=== PATIENT | male | born 1970 | race Caucasian/White ===

== ENCOUNTER 2018-04-21 19:55 | Inpatient (IN) | payer SELFPAY ==
[2018-04-21 19:55] VITALS: BP 106/72; PULSE 136; RESP 20; TEMP 37.1; O2SAT 95; BMI 30.5
[2018-04-21] MEDS: 0.9% Normal Saline 1,000 ML 1000 ML IV (20:31)
[2018-04-21] MEDS: Ondansetron 4 MG/2 ML Vial IV (20:32)
[2018-04-21] MEDS: Morphine 4 MG/ML Syringe IV ×2 (20:33→21:19)
[2018-04-21 20:35] LABS: Absolute Lymphocyte Count 1.14 X10^3/ul (0.83-4.51); Absolute Neutrophil Count 14.6 X10^3/uL (2.0-7.7); Basophil# 0.01 X10^3/uL; Basophil% 0.1 % (0-1); Hematocrit 46.9 % (40-54); Hemoglobin 16.4 g/dl (13.0-16.5); Lymphocyte # 1.14 X10^3/ul (4.0); Lymphocyte % 6.9 % (19-41); Mean Platelet Vol. 9.2 fl (6.2-12.0); Monocyte# 0.61 X10^3/uL; Monocyte% 3.7 % (0-10); Neutrophil # 14.64 X10^3/uL (2.7-7.7); Neutrophil % 89.2 % (47-70); Platelet Count 275 K/mm3 (150-450); RBC Distribution Width CV 13.1 % (11.6-14.6); RBC Distribution Width SD 38.1 fl (35.1-43.9); Red Blood Count 5.86 M/mm3 (4.6-6.2); White Blood Count 16.4 K/mm3 (4.4-11.0)
[2018-04-21 20:37] LABS: POSITIVE COUNT NO; POSITIVE DIFFERENTIAL NO; POSITIVE MORPHOLOGY NO
[2018-04-21 20:43] LABS: Squamous Epithelial Cells - UA 0 SEEN /hpf (0-5)
[2018-04-21 20:44] LABS: Color, Urine Yellow (Yellow); Glucose, Dipstick Normal (Normal); Ketone-Dipstick Negative (Negative); Leukocyte Esterase-Dipstick Negative /ul (Negative); Nitrite-Dipstick Negative (Negative); Occult Blood-Urine 25 /ul (Negative); Protein-Dipstick 30 mg/dl (Negative); Urine Bilirubin Dipstick Negative (Negative); Urine Clarity Clear (Clear); Urine Urobilinogen Normal (Normal)
[2018-04-21 20:48] LABS: Anion Gap 13 (5-15); BUN 12 mg/dL (7-18); Calcium,Total 8.9 mg/dL (8.5-10.1); Chloride 97 mmol/L (98-107); EST Glomerular Filtration Rate 69 mL/min (>60); Est Glom Filt Rate - Afr Amer 84 mL/min (>60); Estimated Creatinine Clearance 84.43 ml/min; Glucose 123 mg/dL (74-106); Potassium 4.1 mmol/L (3.5-5.1); Sodium Level 133 mmol/L (136-145)
--- NOTE | 2018-04-21 20:50 | CT_ITS ---
STUDY: CT ABDOMEN AND PELVIS WITHOUT CONTRAST REASON FOR EXAM: Male, 47 years old. Right lower quadrant pain RADIATION DOSAGE (If Supplied By Facility): CTDIvol = ( 14.41 ) mGy, DLP = ( 927.61 ) mGycm TECHNIQUE: Transaxial images were obtained from the dome of the diaphragm to the symphysis pubis without oral contrast, and without intravenous contrast. Sagittal and coronal images were reconstructed. Individualized dose optimization techniques were used for this CT. COMPARISON: None. FINDINGS: Minor atelectasis within the dependent portion of the right lung. The visualized portions of the heart are within normal limits. Nonspecific fatty infiltration of liver without mass or bile duct dilatation.. Normal gallbladder and extrahepatic biliary system. Normal spleen. Normal pancreas. Normal bilateral adrenal glands. Normal right kidney. Normal left kidney. Normal visualized stomach. Normal small intestine. Diverticular disease of the sigmoid colon without evidence for acute diverticulitis there are phleboliths noted within the appendix which is thick-walled and there is extensive stranding within the periappendiceal fat consistent with acute appendicitis. There is a trace of fluid within the paracolic gutter There is no periappendiceal abscess. Minor atherosclerotic changes of the aorta without evidence for aneurysm Normal inferior vena cava. Normal retroperitoneum. Incompletely distended diffusely thick-walled bladder. Normal abdominal wall. Lumbar spine demonstrates mild spondylosis. CT/Abdomen/Pel W ORAL Cont Only IMPRESSION: Findings consistent with acute appendicitis. No periappendiceal abscess. N.B. : The above information has been verbally conveyed by Timo Ogden MD to , Covering Physician, on 04/21/2018 21:21:25 (ET). Electronically Signed: Timo Ogden MD at 21:18 EDT , Service support , N.B. : The above information has been verbally conveyed by Timo Ogden MD to , Covering Physician, on 04/21/2018 21:21:25 (ET).
[2018-04-21 20:54] LABS: Bacteria RARE /hpf (None Seen); Mucous, Urine 1+ /hpf (<or=2+); Red Blood Cells-Urine 0-5 SEEN /hpf (0-5); White Blood Cells 0-5 SEEN /hpf (0-5)
--- NOTE | 2018-04-21 21:09 | ED.VISSUMM ---
- ER Visit Summary Date of Service: 04/21/18 Chief Complaint: Abdominal pain History of Present Illness: The patient is a 47 M with no primary care physician. He reports he has abdominal pain that began yesterday. Usually the pain is in the epigastric region and the right lower quadrant. Gradually the pain has localized to the right lower quadrant and is gotten worse. It is a dull pain is 7-10 at worst and 510 currently. Is worsened by movement or coughing. Is relieved by nothing. He denies any nausea or vomiting. However, he reports he has not eaten in the past 2 days. No diarrhea. His last problem was today. No melena or hematochezia. He has occasional dysuria. No hematuria. He has had chills without a fever. Physical Examination: Vitals: Stable. Afebrile. General: Well-nourished and well-developed. Head: Normocephalic atraumatic. Neck: Supple, no lymphadenopathy. No JVD. Nontender. Cardiovascular: Regular rate and rhythm. No murmurs. Respiratory: No respiratory distress. Clear to auscultation bilaterally. Abdominal: Soft, moderate right lower quadrant tenderness palpation, nondistended, normal bowel sounds. No guarding, rebound, or peritoneal signs. Back: Nontender. Extremities: Nontender, no edema. Skin: Normal color, no rash. Neurologic: Alert and oriented ?3. Cranial nerves II through XII are intact. Normal strength and sensation. Psych: Normal affect. Test Results: CBC shows white count of 16.49 7 neutrophils and 7 lymphocytes. Chem-7 is more for sodium 133, chloride 97, glucose 123. UA is negative. CT the abdomen pelvis with p.o. contrast only shows appendicitis. Emergency Department Course and Treatment: Patient was treated with morphine, Zofran, and Zosyn IV. He is resting comfortably. Treatment Plan: Patient was discussed with Dr. Brush who will be in to see him. Disposition: Admitted in stable condition. Impression: 1. Appendicitis. This note was generated with [employer] dictation software. It may contain incorrect words, spelling, and punctuation that were not noted in review of the chart prior to signing ED Disposition - Plan for ED Patient: Chief Complaint: Abd Pain Referrals: Care Physician,No Primary [Primary Care Provider] -
[2018-04-21] MEDS: 0.9% Normal Saline 1,000 ML 999 ML IV (21:19)
--- NOTE | 2018-04-21 21:42 | HP.PCM_ITS ---
History of Present Illness Date of Admission: 04/21/18 The patient is a 47 year old M with a 24hour history of vague abdominal pain now localized to the RLQ. WBC count is 16K, CT scan demonstrated appendicitis. Past Medical History Allergies No Known Allergies Allergy (Verified 04/21/18 19:57) Home Medications: Ambulatory Orders Medication Instructions Recorded No Known/Unobtainable [No Known 11/21/13 Home Medications] Surgical History: no surgical history Smoking Status: [facility] Alcohol: Rare Drugs: Marijuana Review of Systems Constitutional: Reports: Anorexia. Denies: Chills, Fever, Weight Change HEENT: Denies: Head Aches, Sinus Congestion, Sinus Drainage Cardiovascular: Denies: Chest Pain, Palpitations Respiratory: Denies: Cough, Shortness of breath at rest, Sputum production Gastrointestinal: Reports: Abdominal Pain. Denies: Nausea, Vomiting Genitourinary: Denies: Dysuria Musculoskeletal: Denies: Joint Pain, Joint Tenderness Skin: Denies: Rash, Wounds Neurological: Denies: Numbness, Tingling, Focal weakness Psychiatric: Denies: Anxiety, Depression, Homicidal Ideations, Suicidal Ideations Hematologic/ Lymphatic: Denies: Easy Bruising, Easy Bleeding VTE Information - Inpt Only VTE Present on Admission: No VTE Mechan Device Prophylaxis: SCD's - Physical Exam General: Alert, Oriented x3, Cooperative HEENT: Atraumatic, PERRLA, EOMI, Normocephalic Neck: Supple, No JVD, Negative Carotid Bruits Lungs: Clear to auscultation, Normal air movement Cardiovascular: Regular rate, No murmurs Abdomen: Bowel Sounds Present, Soft, Tender - RLQ Extremities: No edema, Capillary Refill Less than 3 Seconds Skin: No rashes, No breakdown Musculoskeletal: No Tenderness to Palpation of Joints or Extremities Neurological: Cranial nerves II-XII grossly intact Psych/Mental Status: Normal Affect, Appropriate Vital Signs Temp Pulse Resp BP Pulse Ox 98.8 F 136 H 20 H 106/72 95 04/21/18 19:55 04/21/18 19:55 04/21/18 19:55 04/21/18 19:55 04/21/18 19:55 Oxygen Delivery Method Room Air Weight: 102.058 kg Body Mass Index (BMI) 30.5 Laboratory Tests Past 24 Hrs 0704/21/18 04/21/18 20:15 20:15 20:35 WBC 16.4 H RBC 5.86 Hgb 16.4 Hct 46.9 MCV 80.0 MCH 28.0 MCHC 35.0 RDW 13.1 RDW Differential 38.1 Plt Count 275 MPV 9.2 Immature Gran % (Auto) 0.100 Neut % (Auto) 89.2 H Lymph % (Auto) 6.9 L [place] % (Auto) 3.7 Eos % (Auto) 0.0 Baso % (Auto) 0.1 Absolute Neuts (auto) 14.6 H Absolute Lymphs (auto) 1.14 Total Counted Not Reportable Sodium 133 L Potassium 4.1 Chloride 97 L Carbon Dioxide 23.0 Anion Gap 13 BUN 12 Creatinine 1.20 Estim Creat Clear Calc 84.43 Est GFR (MDRD) Af Amer 84 Est GFR (MDRD) Non-Af 69 BUN/Creatinine Ratio 10.0 Glucose 123 H Calcium 8.9 Urine Color Yellow Urine Clarity Clear Urine pH 6.0 Ur Specific [place] 1.020 Urine Protein 30 H Urine Glucose (UA) Normal Urine Ketones Negative Urine Occult Blood 25 H Urine Nitrite Negative Urine Bilirubin Negative Urine Urobilinogen Normal Ur Leukocyte Esterase Negative Urine RBC 0-5 SEEN Urine WBC 0-5 SEEN Ur Squamous Epith Cells 0 SEEN Urine Bacteria RARE Urine Mucus 1+ Chlam trachomat DNA PCR N.gonorrhoeae DNA (PCR) 04/21/18 20:43 WBC RBC Hgb Hct MCV MCH MCHC RDW RDW Differential Plt Count MPV Immature Gran % (Auto) Neut % (Auto) Lymph % (Auto) [place] % (Auto) Eos % (Auto) Baso % (Auto) Absolute Neuts (auto) Absolute Lymphs (auto) Total Counted Sodium Potassium Chloride Carbon Dioxide Anion Gap BUN Creatinine Estim Creat Clear Calc Est GFR (MDRD) Af Amer Est GFR (MDRD) Non-Af BUN/Creatinine Ratio Glucose Calcium Urine Color Urine Clarity Urine pH Ur Specific [place] Urine Protein Urine Glucose (UA) Urine Ketones Urine Occult Blood Urine Nitrite Urine Bilirubin Urine Urobilinogen Ur Leukocyte Esterase Urine RBC Urine WBC Ur Squamous Epith Cells Urine Bacteria Urine Mucus Chlam trachomat DNA PCR Pending N.gonorrhoeae DNA (PCR) Pending Assessment/Plan appendicitis. I plan to perform a laparoscopic appendectomy. The patient understands the risks, benefits, possible complications and alternatives and consents to the procedure. He was given Zosyn.
[2018-04-21 21:46] VITALS: BP 114/70; PULSE 107; RESP 16; O2SAT 97
--- NOTE | 2018-04-21 21:57 | NURSING ---
TELEPHONE REPORT GIVEN TO [facility] IN OR. DENIES QUESTIONS. STATES THEY ARE READY FOR THE PT. ERIS TEIXEIRA TAKING PT DOWN TO OR.
--- NOTE | 2018-04-21 22:00 | APP_PTH ---
PATIENT: SOL ESQUIVEL LOC: MS2 U#:[id number] AGE/SX: 47/M ROOM: [facility] RE04/21/[address]: Dr. Nam Vergara MD : 1970 BED: 1 DIS: 04/24/2018 SPEC #: [id number] RECD: 04/22/18 08:17 STATUS: BHAVIN SILVERIO #: [id number] BETHANY: 04/21/18 22:[address]: Nam Vergara DEPT: SURGICAL PATHOLOGY RECD BY: Han Rahman ENTERED: 04/22/18 10:23 SP TYPE: APPENDIX OT DR: No Primary Care Phys Tissues: Appendix, NOS Procedures: Surgery Specimen Level III HEADER OPERATION: Laparoscopic, appendectomy PRE-OP DIAGNOSIS: Acute appendicitis TISSUE SUBMITTED: Appendix MICROSCOPIC DIAGNOSIS Appendix: Acute purulent appendicitis with focal area of rupture and periappendicitis. FUNMILAYO:jyothi 04/23/18 MICROSCOPIC DESCRIPTION Slides are reviewed. GROSS DESCRIPTION Received is one container labeled with the patient's name and designated appendix. The specimen consists of an appendix measuring 9 cm in length and up to 1.2 cm in diameter. A focal area of rupture is noted in the middle portion of the appendix 4 cm away from the tip. The serosal surface is covered with jovel, purulent exudate. The attached periappendiceal adipose tissue measures up to 2.5 cm in width. The mucosa reveal congested and hemorrhagic cut surfaces. The lumen contains fecal material. No fecalith is identified. Director Of Analytics sections are submitted in two cassettes. / SJ:rg 04/22/18 TC:2 CPT: 53576
[2018-04-21] MEDS: Bupivacaine Mpf 0.5% 30 ML VIAL (23:00)
--- NOTE | 2018-04-21 23:07 | OP.PCM_ITS ---
Report of Operation Date of Procedure: 04/21/18 Pre-Operative Diagnosis: acute appendicitis Post-Operative Diagnosis: perforated appendicitis Surgery/Procedure Performed:: laparoscopic appendectomy Description of Surgical Findings:: as above human resources benefits assistant: None Type of Anesthesia:: General Anesthesiologist: Alec Mitchell ASA2E Specimen's removed: appendix Estimated Blood Loss (mL): minimal Fluids Replaced: 1100 Description of Procedure: The patient was brought to the operating suite. Sign in was performed verifying patient, site, procedure, position, and DVT prophylaxis with SCDs. Patient received 4.5 g Zosyn for presumed appendicitis. Following induction of general anesthetic. The patient?s abdomen was prepped and draped in the usual fashion. Timeout was performed verifying patient, site , position. Local anesthetic was injected below the umbilicus. Incision made and dissection carried down to the umbilical root fascia. 2 stay sutures were placed. Incision made in the fascia, the peritoneum entered under direct visualization. A 10 mm Blood trocar was inserted and secured with the stay sutures. Pneumoperitoneum to 15 mmHg was insufflated. 2 5mm ports were placed in the standard position. Visual inspection revealed a perforated appendicitis with fecal contamination. A window was made between the base the mesoappendix and the base of the appendix transected with the intestinal load Endo CAMERON stapler at the base of the cecum. The mesoappendix was transected with a harmonic scalpel. The appendix was placed in an Endobag and removed through the umbilical port site. An 0 PDS [id number] suture was placed around the umbilical port site defect. Pneumoperitoneum was reestablished. The appendiceal area was checked for hemostasis. 5mm ports were removed under direct visualization with no signs of bleeding. Pneumoperitoneum was released. The Blood trocar was removed. The umbilical fascial suture was secured area did skin was closed with interrupted 4-0 Monocryl subcuticular sutures. Steri-Strips and bandages were applied. The patient was brought to recovery room in stable condition.
[2018-04-21 23:13] VITALS: BP 106/72; BP 135/96; PULSE 110; RESP 20; TEMP 37.5; O2SAT 88
[2018-04-21 23:15] VITALS: BP 106/72; BP 153/95; PULSE 108; RESP 20; O2SAT 92
[2018-04-21 23:30] VITALS: BP 106/72; BP 134/80; PULSE 107; RESP 20; O2SAT 92
[2018-04-21 23:46] VITALS: BP 106/72; BP 126/74; PULSE 106; RESP 20; TEMP 37.9; O2SAT 95
[2018-04-22] VITALS (8 sets, daily range): BP systolic 119–138; BP diastolic 60–78; PULSE 87–112; RESP 18–20; TEMP 37.2–38.2; O2SAT 95–97; BMI 30.5
[2018-04-22 00:15] LABS: Chlamydia Trachomatis by PCR Negative (Negative); Neisserai gonorrhoeae by PCR Negative (Negative); Probe Check PASS; Sample Adequacy Control PASS; Specimen Processing Control PASS
[2018-04-22] MEDS: Morphine 4 MG/ML Syringe IV ×5 (02:12→20:20)
[2018-04-22] MEDS: Lactated Ringers 1,000 ML 100 ML IV ×3 (04:31→23:56)
[2018-04-22] MEDS: 0.9% NaCl IVPB Med Flush (250 mL) 15 ML IV (05:18)
[2018-04-22] MEDS: Piperacil/Tazobactam 3.375 GM/50 ML ML IV ×3 (05:18→22:10)
[2018-04-22 06:16] LABS: Absolute Lymphocyte Count 0.99 X10^3/ul (0.83-4.51); Absolute Neutrophil Count 11.4 X10^3/uL (2.0-7.7); Basophil# 0.01 X10^3/uL; Basophil% 0.1 % (0-1); Eosinophil# 0.01 X10^3/uL; Eosinophils% 0.1 % (0-5); Hematocrit 42.1 % (40-54); Hemoglobin 14.5 g/dl (13.0-16.5); Lymphocyte # 0.99 X10^3/ul (4.0); Lymphocyte % 7.7 % (19-41); Mean Corp Hgb Conc 34.4 g/gl (32-36); Mean Corpuscular Hgb 27.6 pg (27.0-32.0); Mean Platelet Vol. 9.2 fl (6.2-12.0); Monocyte# 0.39 X10^3/uL; Neutrophil # 11.44 X10^3/uL (2.7-7.7); Neutrophil % 88.9 % (47-70); Platelet Count 300 K/mm3 (150-450); RBC Distribution Width CV 13.4 % (11.6-14.6); RBC Distribution Width SD 38.6 fl (35.1-43.9); Red Blood Count 5.26 M/mm3 (4.6-6.2); White Blood Count 12.9 K/mm3 (4.4-11.0)
[2018-04-22 06:19] LABS: ALB/GLOB Ratio 0.7 RATIO (0.9-2.4); AST(SGOT) 25 U/L (15-37); Alanine Aminotransfer ALT/SGPT 57 U/L (16-61); Alkaline Phosphatase 55 U/L (45-117); Anion Gap 11 (5-15); BUN 12 mg/dL (7-18); BUN/Creat Ratio 9.3 RATIO (10-20); Calcium,Total 7.9 mg/dL (8.5-10.1); Chloride 101 mmol/L (98-107); Creatinine, Serum 1.29 mg/dL (0.70-1.30); EST Glomerular Filtration Rate 64 mL/min (>60); Est Glom Filt Rate - Afr Amer 77 mL/min (>60); Estimated Creatinine Clearance 78.54 ml/min; Globulin 4.2 g/dL (2.2-4.2); Glucose 127 mg/dL (74-106); Potassium 4.2 mmol/L (3.5-5.1); Protein, Total 7.2 g/dL (6.4-8.2); Sodium Level 137 mmol/L (136-145)
[2018-04-22 06:25] LABS: POSITIVE COUNT NO; POSITIVE DIFFERENTIAL NO; POSITIVE MORPHOLOGY NO
[2018-04-22] MEDS: HYDROcodone Bitartrate/Apap 5/325 Tablet PO ×3 (08:27→22:57)
[2018-04-22] MEDS: 0.9% NaCl Peripheral Flush Adult/Peds IV ×2 (08:28→20:20)
--- NOTE | 2018-04-22 14:45 | CASEMGMT ---
Social Work Assessment Referral Date: 04/22/2018 Date of Assessment: 04/22/2018 Reason for consult: Pt is listed as self-pay Informant: IRON Personal Status SW met with pt. SW introduced self and role at [facility]. Pt is alert and orientated x4. Pt has guest present and gave this worker permission to speak to him in front of his quest. Pt states that he lives with his parents in 1 story ranch home. Pt states that he lives in the basement and there are about twelve steps to take to get up and down from the basement. Pt states that he was previously independent with ADLs and that he currently works. Pt confirms that he doesn't have insurance. Pt states that patient financial services saw him today and provided paperwork including HCAP application. Pt states that he hasn't applied for Medicaid but is receptive to receiving application. SW provided pt with Medicaid application and provided pt with prescription assistance programs. Pt states that his plan is to return home at discharge. Pt denied additional needs or concerns at this time. Substance Abuse Hx: Pt denied Mental Health Hx: Pt denied Plan: Pt to return home at discharge. Pt was provided HCAP application, Medicaid Application and prescription assistance resources. Sofi Miranda LINING MARKER, COMMERCIAL ANALYST
--- NOTE | 2018-04-22 15:57 | CASEMGMT ---
RN CM NOTE: Intro role of CM. Pt states has no PCP. Given list of PCP'S in [place] area. Pt denies further needs at this time. Magui LOGANN RN CM
--- NOTE | 2018-04-22 18:26 | PN.SURG_ITS ---
Subjective: some incisional discomfort - Physical Exam General: Alert, Oriented x3, Cooperative Lungs: Clear to auscultation, Normal air movement Cardiovascular: Regular rate, No murmurs Abdomen: Bowel Sounds Present, Soft, Tender - at incisions, nontender in right lower quadrant Vital Signs Temp Pulse Resp BP Pulse Ox 99.0 F 104 H 18 119/75 97 04/22/18 14:28 04/22/18 14:28 04/22/18 18:00 04/22/18 14:28 04/22/18 14:28 Oxygen Flow Rate (L/min) 2 Oxygen Delivery Method Room Air Weight: 102.058 kg Body Mass Index (BMI) 30.5 Intake and Output for Last 24 Hours 04/20/18 04/21/18 04/22/18 23:59 23:59 23:59 Intake Total 1400 / 1400 2986 / 2986 Output Total 1250 / 1250 Balance 1400 / 1400 1736 / 1736 Laboratory Tests Past 24 Hrs 04/22/18 04/22/18 05:26 05:26 WBC 12.9 H RBC 5.26 Hgb 14.5 Hct 42.1 MCV 80.0 MCH 27.6 MCHC 34.4 RDW 13.4 RDW Differential 38.6 Plt Count 300 MPV 9.2 Immature Gran % (Auto) 0.200 Neut % (Auto) 88.9 H Lymph % (Auto) 7.7 L [place] % (Auto) 3.0 Eos % (Auto) 0.1 Baso % (Auto) 0.1 Absolute Neuts (auto) 11.4 H Absolute Lymphs (auto) 0.99 Total Counted Not Reportable Sodium 137 Potassium 4.2 Chloride 101 Carbon Dioxide 25.0 Anion Gap 11 BUN 12 Creatinine 1.29 Estim Creat Clear Calc 78.54 Est GFR (MDRD) Af Amer 77 Est GFR (MDRD) Non-Af 64 BUN/Creatinine Ratio 9.3 L Glucose 127 H Calcium 7.9 L Total Bilirubin 1.90 H AST 25 ALT 57 Alkaline Phosphatase 55 Total Protein 7.2 Albumin 3.0 L Globulin 4.2 Albumin/Globulin Ratio 0.7 L Medical Necessity - Tobacco Use Smoking Status: Current every day smoker Assessment/Plan postoperative day #1 status post laparoscopic appendectomy for perforated appendicitis.. The patient is being maintained on Zosyn. encourage ambulation, incentive spirometry,. We'll continue SCDs. Will advance diet as tolerated. Check laboratory studies in the morning
[2018-04-23 02:58] VITALS: BP 120/70; PULSE 88; RESP 18; TEMP 37.1; O2SAT 98
[2018-04-23] MEDS: HYDROcodone Bitartrate/Apap 5/325 Tablet PO ×4 (05:40→23:38)
[2018-04-23] MEDS: Piperacil/Tazobactam 3.375 GM/50 ML ML IV ×3 (05:41→21:08)
[2018-04-23 07:38] LABS: Absolute Lymphocyte Count 0.64 X10^3/ul (0.83-4.51); Absolute Neutrophil Count 8.4 X10^3/uL (2.0-7.7); Basophil# 0.01 X10^3/uL; Basophil% 0.1 % (0-1); Eosinophil# 0.01 X10^3/uL; Eosinophils% 0.1 % (0-5); Hematocrit 38.9 % (40-54); Hemoglobin 13.3 g/dl (13.0-16.5); Lymphocyte # 0.64 X10^3/ul (4.0); Lymphocyte % 6.8 % (19-41); Mean Corp Hgb Conc 34.2 g/gl (32-36); Mean Corpuscular Hgb 27.8 pg (27.0-32.0); Mean Corpuscular Volume 81.2 fL (80-94); Mean Platelet Vol. 9.4 fl (6.2-12.0); Monocyte# 0.35 X10^3/uL; Monocyte% 3.7 % (0-10); Neutrophil # 8.39 X10^3/uL (2.7-7.7); Neutrophil % 89.2 % (47-70); Platelet Count 267 K/mm3 (150-450); RBC Distribution Width CV 13.5 % (11.6-14.6); RBC Distribution Width SD 39.2 fl (35.1-43.9); Red Blood Count 4.79 M/mm3 (4.6-6.2); White Blood Count 9.4 K/mm3 (4.4-11.0)
[2018-04-23 07:56] LABS: POSITIVE COUNT NO; POSITIVE DIFFERENTIAL NO; POSITIVE MORPHOLOGY NO
[2018-04-23 07:58] LABS: Anion Gap 9 (5-15); BUN 12 mg/dL (7-18); BUN/Creat Ratio 9.9 RATIO (10-20); Calcium,Total 8.2 mg/dL (8.5-10.1); Chloride 101 mmol/L (98-107); Creatinine, Serum 1.21 mg/dL (0.70-1.30); EST Glomerular Filtration Rate 68 mL/min (>60); Est Glom Filt Rate - Afr Amer 83 mL/min (>60); Estimated Creatinine Clearance 83.73 ml/min; Glucose 128 mg/dL (74-106); Potassium 3.7 mmol/L (3.5-5.1); Sodium Level 134 mmol/L (136-145)
[2018-04-23 08:57] VITALS: BP 116/70; PULSE 74; RESP 18; TEMP 37.2; O2SAT 99
[2018-04-23 09:00] VITALS: RESP 18
[2018-04-23] MEDS: Lactated Ringers 1,000 ML 100 ML IV ×2 (10:00→20:42)
[2018-04-23 15:11] VITALS: BP 128/66; PULSE 78; RESP 18; TEMP 36.8; O2SAT 100
--- NOTE | 2018-04-23 18:34 | PN.SURG_ITS ---
Subjective: still pain, no flatus - Physical Exam General: Alert, Oriented x3, Cooperative Lungs: Clear to auscultation, Normal air movement Cardiovascular: Regular rate, No murmurs Abdomen: Soft, Non Tender, Hypoactive Bowel Sounds, Tender - along the incisions and right side Vital Signs Temp Pulse Resp BP Pulse Ox 98.3 F 78 18 128/66 H 100 04/23/18 15:11 04/23/18 15:11 04/23/18 15:11 04/23/18 15:11 04/23/18 15:11 Oxygen Flow Rate (L/min) 2 Oxygen Delivery Method Room Air Weight: 102.058 kg Body Mass Index (BMI) 30.5 Intake and Output for Last 24 Hours 04/21/18 04/22/18 04/23/18 23:59 23:59 23:59 Intake Total 1400 / 1400 3898 / 3898 3273.5 / 3273.5 Output Total 1250 / 1250 1900 / 1900 Balance 1400 / 1400 2648 / 2648 1373.5 / 1373.5 Laboratory Tests Past 24 Hrs 04/23/18 04/23/18 06:40 06:40 WBC 9.4 RBC 4.79 Hgb 13.3 Hct 38.9 L MCV 81.2 MCH 27.8 MCHC 34.2 RDW 13.5 RDW Differential 39.2 Plt Count 267 MPV 9.4 Immature Gran % (Auto) 0.100 Neut % (Auto) 89.2 H Lymph % (Auto) 6.8 L [place] % (Auto) 3.7 Eos % (Auto) 0.1 Baso % (Auto) 0.1 Absolute Neuts (auto) 8.4 H Absolute Lymphs (auto) 0.64 L Total Counted Not Reportable Sodium 134 L Potassium 3.7 Chloride 101 Carbon Dioxide 24.0 Anion Gap 9 BUN 12 Creatinine 1.21 Estim Creat Clear Calc 83.73 Est GFR (MDRD) Af Amer 83 Est GFR (MDRD) Non-Af 68 BUN/Creatinine Ratio 9.9 L Glucose 128 H Calcium 8.2 L Medical Necessity - Tobacco Use Smoking Status: Current every day smoker Assessment/Plan postoperative day #2 status post laparoscopic appendectomy for perforated appendicitis.. The patient is being maintained on Zosyn. encourage ambulation, incentive spirometry,. We'll continue SCDs. Will advance diet as tolerated.
[2018-04-23] MEDS: Calcium Carbonate 500 MG Tablet 1000 MG PO (21:08)
[2018-04-23 21:10] VITALS: BP 139/70; PULSE 90; RESP 16; TEMP 36.9; O2SAT 100
[2018-04-24 03:10] VITALS: BP 122/64; PULSE 89; RESP 15; TEMP 36.8; O2SAT 100
[2018-04-24] MEDS: HYDROcodone Bitartrate/Apap 5/325 Tablet PO ×2 (05:38→12:26)
[2018-04-24] MEDS: Piperacil/Tazobactam 3.375 GM/50 ML ML IV (05:53)
--- NOTE | 2018-04-24 06:23 | DCINST_ITS ---
Discharge Diet: Light diet - advance as tolerated Discharge Activity: May Not Drive - for 3-5 days or while taking narcotic pain meds. May shower in (days): 1 Suture Line Care: Avoid Pulling/Pushing, Avoid Pinching/Bending Additional Dressing/Incision Instructions:: Keep dressing clean and dry. Change or remove dressing in 2 days. Leave steri strips for 1 week. May protect with a gauze bandaid. Medications to take at Discharge Calcium Carbonate [Tums] 1,000 mg PO Q4H PRN PRN tablet 04/24/18 Hydrocodone Bitart/Apap 5-325 [[place] 5/325] 1 - 2 tab PO Q6H PRN PRN 7 Days #14 tab 04/24/18 Allergies/Adverse Reactions: Allergies No Known Allergies Allergy (Verified 04/21/18 19:57) The following prescriptions were given: Hydrocodone Bitart/Apap 5-325 [[place] 5/325] 1 - 2 tab PO Q6H PRN PRN 7 Days #14 tab PRN Reason: Mild-Moderate (pain scale 1-5) Primary Care Physician: Care Physician,No Primary [Primary Care Provider] - Test Results: Test results from this visit will be discussed in further detail at your follow- up appointment, if applicable. Please Follow Up With: Nam Vergara MD - [phone] When: Call to make a follow up appointment in 1 week.
[2018-04-24] MEDS: Lactated Ringers 1,000 ML 100 ML IV (06:40)
[2018-04-24 07:38] VITALS: O2SAT 95
[2018-04-24 08:35] VITALS: BP 132/78; PULSE 81; RESP 16; TEMP 37.1; O2SAT 96
--- NOTE | 2018-04-24 18:57 | PCM.PN.SRG ---
Subjective: passing flatus, feeling better - Physical Exam General: Alert, Oriented x3 Lungs: Clear to auscultation, Normal air movement Cardiovascular: Regular rate, Regular Rhythm Abdomen: Bowel Sounds Present, Soft, Non Tender Vital Signs Temp Pulse Resp BP Pulse Ox 98.8 F 81 16 132/78 H 96 04/24/18 08:35 04/24/18 08:35 04/24/18 08:35 04/24/18 08:35 04/24/18 08:35 Oxygen Flow Rate (L/min) 2 Oxygen Delivery Method Room Air Weight: 102.058 kg Body Mass Index (BMI) 30.5 Intake and Output for Last 24 Hours 04/22/18 04/23/18 04/24/18 23:59 23:59 23:59 Intake Total 3898 / 3898 4546.5 / 4546.5 832.2 / 832.2 Output Total 1250 / 1250 2750 / 2750 Balance 2648 / 2648 1796.5 / 1796.5 832.2 / 832.2 Medical Necessity - Tobacco Use Smoking Status: Current every day smoker Assessment/Plan postoperative day #3 status post laparoscopic appendectomy for perforated appendicitis.. The patient feeling better today with improved pain and now passing flatus. Will advance diet as tolerated. we'll plan to discharge later today.
--- NOTE | 2018-04-24 18:59 | PCM.DC.SUM ---
Discharge Date and Diagnosis Date of Admission: 04/21/18 Date of Discharge: 04/24/18 - Primary Discharge Diagnosis appendicitis Hospital Course and Treatment Operations: appendectomy Summary of Care Provided: The patient is a 47 year old M presented with a one-day history of abdominal localizing right lower quadrant pain. The patient is CT scan consistent with appendicitis. He was brought to the operating suite and was found to have perforated appendicitis. The patient had initial significant pain and given the degree of inflammation, alert to maintain the patient on IV antibiotics. He had improvement of his pain, normalization of his white blood cell count and was then maintained afebrile for > 24 hours. The patient was discharged home with plans to follow-up in my office. Discharge Diet: Light diet - advance as tolerated Discharge Activity: May Not Drive - for 3-5 days or while taking narcotic pain meds. May shower in (days): 1 Suture Line Care: Avoid Pulling/Pushing, Avoid Pinching/Bending Additional Dressing/Incision Instructions:: Keep dressing clean and dry. Change or remove dressing in 2 days. Leave steri strips for 1 week. May protect with a gauze bandaid. Home Medications: Medications to take at Discharge Calcium Carbonate [Tums] 1,000 mg PO Q4H PRN PRN tablet 04/24/18 Hydrocodone Bitart/Apap 5-325 [[place] 5/325] 1 - 2 tab PO Q6H PRN PRN 7 Days #14 tab 04/24/18 Following Prescrptions Were Given to Patient: Hydrocodone Bitart/Apap 5-325 [[place] 5/325] 1 - 2 tab PO Q6H PRN PRN 7 Days #14 tab PRN Reason: Mild-Moderate (pain scale 1-5) Primary Care Physician: Care Physician,No Primary [Primary Care Provider] - Please Follow Up With: Nam Vergara MD - [phone] When: Call to make a follow up appointment in 1 week. Medical Necessity - Tobacco Use Smoking Status: Current every day smoker Meaningful Use Info Meaningful Use Diagnoses (Choose all that apply): None applicable
== END 2018-04-24 13:06 | disposition home or self-care (01) | DRG 340 ==
LOC: ED 20:41 → SDC 21:19 → AC 21:20 → MS2 22:40 → SDC 22:41 → MS2 04-22 08:42
PROVIDERS: Admitting Provider Surgery; Emergency Provider Emergency Medicine; Visit Provider Surgery
PROC: 0DTJ4ZZ Resection of Appendix, Percutaneous Endoscopic Approach (ICD-10-PCS; CPT 44970; principal; 2018-04-21 22:00)
DX: K35.2 Acute appendicitis with generalized peritonitis (principal)
CPT/HCPCS: 36415; 74176; 80048; 80053; 81001; 85025; 87491; 87591; 88304; 99284; 99406; J7030; J7050; J7120; A4216; J2405

== ENCOUNTER 2018-05-08 15:05 | Inpatient (IN) | payer SELFPAY ==
[2018-05-08 15:23] VITALS: BMI 29.0
[2018-05-08 15:24] VITALS: BP 130/71; PULSE 100; RESP 18; TEMP 39.2; O2SAT 99
[2018-05-08] MEDS: Lactated Ringers 1,000 ML 60 ML IV (16:00)
[2018-05-08] MEDS: Ibuprofen 400 MG Tablet PO (16:56)
[2018-05-08 17:17] LABS: Absolute Lymphocyte Count 0.97 X10^3/ul (0.83-4.51); Absolute Neutrophil Count 8.7 X10^3/uL (2.0-7.7); Basophil# 0.01 X10^3/uL; Basophil% 0.1 % (0-1); Hematocrit 36.5 % (40-54); Hemoglobin 11.9 g/dl (13.0-16.5); Lymphocyte # 0.97 X10^3/ul (4.0); Lymphocyte % 9.4 % (19-41); Mean Corp Hgb Conc 32.6 g/gl (32-36); Mean Corpuscular Hgb 26.3 pg (27.0-32.0); Mean Corpuscular Volume 80.6 fL (80-94); Mean Platelet Vol. 8.7 fl (6.2-12.0); Monocyte# 0.66 X10^3/uL; Monocyte% 6.4 % (0-10); Neutrophil # 8.66 X10^3/uL (2.7-7.7); Platelet Count 541 K/mm3 (150-450); RBC Distribution Width CV 13.3 % (11.6-14.6); RBC Distribution Width SD 39.9 fl (35.1-43.9); Red Blood Count 4.53 M/mm3 (4.6-6.2); White Blood Count 10.3 K/mm3 (4.4-11.0)
[2018-05-08 17:18] LABS: POSITIVE COUNT NO; POSITIVE DIFFERENTIAL NO; POSITIVE MORPHOLOGY NO
[2018-05-08 17:31] LABS: Anion Gap 10 (5-15); BUN 18 mg/dL (7-18); BUN/Creat Ratio 15.9 RATIO (10-20); Calcium,Total 8.9 mg/dL (8.5-10.1); Chloride 97 mmol/L (98-107); Creatinine, Serum 1.13 mg/dL (0.70-1.30); EST Glomerular Filtration Rate 74 mL/min (>60); Est Glom Filt Rate - Afr Amer 90 mL/min (>60); Estimated Creatinine Clearance 89.66 ml/min; Glucose 104 mg/dL (74-106); Sodium Level 131 mmol/L (136-145)
[2018-05-08 17:46] LABS: International Normalized Ratio 1.2; Prothrombin Time (Protime)PT. 14.7 SECONDS (11.7-14.9)
--- NOTE | 2018-05-08 17:46 | HP.PCM_ITS ---
History and Physical Date of Admission: 05/08/18 HISTORY AND PHYSICAL ? Parth Moreno 1970 ? ? REFERRING PHYSICIAN: ~~Self ? CHIEF COMPLAINT: ~~Post Op (post op Appy) ? HPI: The patient is a 47 year old male with a complaint of fever and abdominal discomfort. ~Status post appendectomy. ? Parth is a patient I am following for acute appendicitis. ~I performed a laparoscopic appendectomy on April 21, 2018. ~The patient's appendix demonstrated acute appendicitis with perforation. ~The patient did well post operatively and was discharged to home on post operative day 2. ? The patient currently notes no complaints. ~his appetite has been good. ~he denies fever, chills or abdominal pain. ~he does note some mild incisional discomfort. ? He was doing well but now notes fever to 101.5 and right-sided abdominal discomfort. ~He has had a decrease in the good appetite. ~He is moving his bowels. ? Given his above symptoms. ~We obtained an urgent CT scan and laboratory studies. ~His white blood cell count was 11.5. ~CT scan was obtained, however, which does show a abscess approximately 5 cm of the base of the appendix consistent with a post appendectomy abscess. ? I spoke with Dr. Johnson who felt it was likely drainable. ? ? ? PAST MEDICAL HISTORY No past medical history on file. ? ? PAST SURGICAL HISTORY No past surgical history on file. Laparoscopic appendectomy-April 21, 2018-appendix was perforated the time of surgery ? CURRENT MEDICATIONS ? Current Outpatient Prescriptions: iv contrast (will be provided with radiology test) CT ABD/PEL -Inject, intravenously, once for 1 dose.No IV access, insert saline lock prior to the beginning of sedation, infusion, injection of imaging exam. Discontinue saline lock post exam. If Pt. has a central line or IVAD, may access for administration according to line specific nursing protocol. Once exam is complete flush line and de-access according to line specific nursing protocol in the CT contrast administration guidelines link. enteric contrast (will be provided with radiology test) For CT ABD/PEL W IVCON Routine order Administer, As Directed One Time Only, via Oral, Rectal, both Oral and Rectal, Enteric Tube, Stoma or Indwelling Catheter, ~Enteric Contrast as designated per enteric contrast guidelines ? No current facility-administered medications for this visit. ? ALLERGIES: Patient has no known allergies. ? PERSONAL HISTORY: SOCIAL HISTORY Social History ~~Marital status: Single ~~~~~~~~~~~~~Spouse name: ~~~~~~~~~~~~~~~~~~ ~~Years of education: ~~~~~~~~~~~~~~~~Number of children: ~~~~~~~~~~ ? Social History Main Topics ~~Drug use: Unknown ? FAMILY HISTORY: FAMILY HISTORY No family history on file. ? REVIEW OF SYMPTOMS: ~~The review of systems data was entered by the nurse and reviewed by me ? There are no exam notes on file for this visit. ? ~ PHYSICAL EXAMINATION: ? General: ~The patient is 47 year old male, well nourished, well hydrated in no acute distress. ~The patient is oriented to time, place, and person. ? VITALS: Blood pressure 124/68, pulse 100, temperature 37.2 ?C (99 ?F), temperature source Temporal Artery. ? HEENT: ~Normal cephalic, ataumatic, pupils are equally round, sclera are anicteric, mucous membranes are moist, oropharynx is clear. ~Neck has no masses , asymmetry or lymphadenopathy. ~Thyroid is unremarkable. ? Respiratory: ~Clear to auscultation and percussion. ~Normal respiratory excursion and pattern. ? Cardiac: ~Examination is regular rate and rhythm. ? Abdominal exam: ~Soft,tender in the right lower quadrant without peritoneal signs, ~with no palpable masses. ~No hepatosplenomegaly. ~No palpable hernias. ? Rectal exam: exam deferred ? Extremities: ~no clubbing, cyanosis or edema. ~No adenopathy. ? Other: ? ? LABORATORY VALUES: As Noted ? RADIOLOGIC STUDIES: ~As Noted ? Assessment ~ IMPRESSION: Post appendiceal abscess-delayed ? PLAN: ~~The patient will be admitted to [facility]. ~Urgent coags will be obtained. ~We'll plan for CT-guided drainage of the abscess and restart antibiotics. ? Diagnoses: (K35.3) Acute appendicitis with localized peritonitis ~(primary encounter diagnosis) (R10.31) Right lower quadrant abdominal pain ? This note was partially generated using Long [employer] voice recognition system, and there may be some incorrect words, spellings, and punctuation that were not noted in checking the note before saving.~ ~ ? Nam Vergara MD
[2018-05-08 17:47] LABS: Partial Thromboplast Time 42.9 Seconds (24.1-36.2)
[2018-05-08] MEDS: oxyCODONE 5 MG Tablet PO (18:24)
[2018-05-08 18:29] VITALS: TEMP 37.4
[2018-05-08 20:45] VITALS: BP 123/68; PULSE 80; RESP 16; TEMP 36.9; O2SAT 100
[2018-05-08] MEDS: Piperacil/Tazobactam 3.375 GM/50 ML ML IV (21:54)
[2018-05-08 23:45] VITALS: TEMP 37.6
[2018-05-09] VITALS (12 sets, daily range): BP systolic 94–146; BP diastolic 52–78; PULSE 78–99; RESP 14–97; TEMP 37–37.6; O2SAT 21–99
[2018-05-09] MEDS: Ibuprofen 400 MG Tablet PO ×3 (02:20→22:10)
[2018-05-09] MEDS: Piperacil/Tazobactam 3.375 GM/50 ML ML IV ×3 (05:47→22:11)
[2018-05-09 06:17] LABS: Absolute Lymphocyte Count 1.35 X10^3/ul (0.83-4.51); Absolute Neutrophil Count 6.9 X10^3/uL (2.0-7.7); Basophil# 0.02 X10^3/uL; Basophil% 0.2 % (0-1); Eosinophil# 0.02 X10^3/uL; Eosinophils% 0.2 % (0-5); Hematocrit 34.2 % (40-54); Hemoglobin 11.2 g/dl (13.0-16.5); Lymphocyte # 1.35 X10^3/ul (4.0); Lymphocyte % 15.2 % (19-41); Mean Corp Hgb Conc 32.7 g/gl (32-36); Mean Corpuscular Hgb 26.7 pg (27.0-32.0); Mean Corpuscular Volume 81.4 fL (80-94); Mean Platelet Vol. 8.8 fl (6.2-12.0); Monocyte# 0.62 X10^3/uL; Neutrophil # 6.86 X10^3/uL (2.7-7.7); Neutrophil % 77.2 % (47-70); Platelet Count 501 K/mm3 (150-450); RBC Distribution Width CV 13.4 % (11.6-14.6); RBC Distribution Width SD 40.2 fl (35.1-43.9); White Blood Count 8.9 K/mm3 (4.4-11.0)
[2018-05-09 06:32] LABS: Anion Gap 8 (5-15); BUN 16 mg/dL (7-18); BUN/Creat Ratio 15.8 RATIO (10-20); Calcium,Total 8.9 mg/dL (8.5-10.1); Chloride 101 mmol/L (98-107); Creatinine, Serum 1.01 mg/dL (0.70-1.30); EST Glomerular Filtration Rate 84 mL/min (>60); Est Glom Filt Rate - Afr Amer 102 mL/min (>60); Estimated Creatinine Clearance 100.31 ml/min; Glucose 113 mg/dL (74-106); Potassium 4.4 mmol/L (3.5-5.1); Sodium Level 135 mmol/L (136-145)
[2018-05-09 06:37] LABS: POSITIVE COUNT NO; POSITIVE DIFFERENTIAL NO; POSITIVE MORPHOLOGY NO
[2018-05-09] MEDS: Lactated Ringers 1,000 ML 60 ML IV ×2 (08:37→20:18)
--- NOTE | 2018-05-09 09:48 | CASEMGMT ---
Addendum entered by Sofi Miranda 05/09/18 11:19: SW in to meet with pt. SW familiar with pt as pt was recently at [facility] and this worker worked with pt last time he was at [facility]. Pt confirms that he has been working on completing the Medicaid Application and is going to turn in the application once he discharges from hospital. Pt states that he will also be turning in his completed HCAP application. Pt denied additional needs or concerns at this time and states that his plan is to return home at discharge. Original Note: Addendum entered by Sofi Miranda 05/09/18 09:51: Per notes, Pt was also provided list of PCP. Original Note: Social Work Note Pt was recently in hospital and this SW saw pt then for self-pay status. Last visit pt was seen by [employer] and this worker. Pt was provided Medicaid Application, HCAP application and prescription assistance resources. Pt went home no needs last time. Pt expected to return home at discharge with no needs. Should needs arise this SW rocket propellant plant supervisor CM will assist pt with discharge needs. Plan: Pt to discharge home when medically cleared Sofi Miranda BAND AID MACHINE OPERATOR, REGIONAL MANAGER
--- NOTE | 2018-05-09 09:51 | NURSING ---
LEAVING UNIT AT THIS TIME VIA BED FOR CT DRAINAGE OF ABSCESS
--- NOTE | 2018-05-09 10:00 | CT_ITS ---
STUDY: CT-GUIDED ABSCESS ASPIRATION AND DRAIN PLACEMENT REASON FOR EXAM: Male, 47 years old. Right lower quadrant pain, fever, recent appendectomy RADIATION DOSAGE (If Supplied By Facility): CTDIvol = ( ) mGy, DLP = ( ) mGycm. Individualized dose optimization techniques were used for this CT.? TECHNIQUE: CT guided COMPARISON: Outside study FINDINGS: After informed consent was obtained, the patient was placed in the supine position on the CT table and limited CT of the pelvis was performed to assess for abscess location. There is a low-density fluid collection in the right lower quadrant measuring 5.6 x 6.6 cm containing the surgical clips from appendectomy consistent with postoperative abscess. The area for percutaneous drainage was marked, then prepped in a sterile manner. 2% Xylocaine was used as local anesthetic and patient was given 50 mcg of fentanyl and 1 mg Versed for conscious sedation. Monitoring during the procedure show abnormal vital signs. Under CT guidance, an 8 Vietnamese pigtail coaxial drainage catheter was advanced into the abscess cavity and approximately 20 mL of foul-smelling jovel pus was withdrawn and sent to the lab for further evaluation. The pigtail drain was then advanced and locked in place and confirmation within the abscess cavity was visualized with CT images. A COLE collection tube was attached to the drainage catheter. Patient tolerated the procedure well with no immediate complications and was returned to the floor in good condition. CT/Abscess/Fistula/Sinus Tract IMPRESSION: Successful abscess aspiration and drainage placement under CT guidance. Electronically Signed: Caden South MD at 11:11 EDT , Service support ,
--- NOTE | 2018-05-09 10:58 | NURSING ---
REPORT RECEIVED FROM JUDITH Clemente RN IN CT. PT TOLERATED PROCEDURE WELL AND WILL BE RETURNING TO UNIT
--- NOTE | 2018-05-09 11:29 | PCM.PN.SRG ---
Subjective: discomfort over night - Physical Exam General: Alert, Oriented x3, Cooperative Lungs: Clear to auscultation, Normal air movement Cardiovascular: Regular rate, No murmurs Abdomen: Bowel Sounds Present, Soft, Tender - RLQ Vital Signs Temp Pulse Resp BP Pulse Ox 98.6 F 95 16 145/73 H 95 05/09/18 10:26 05/09/18 10:47 05/09/18 10:47 05/09/18 10:47 05/09/18 10:47 Oxygen Delivery Method [5] Room Air Oxygen Delivery Method [4] Room Air Oxygen Delivery Method [3] Room Air Oxygen Delivery Method [2] Room Air Oxygen Delivery Method [1 ( Room Air Initial Baseline)] Oxygen Delivery Method Room Air Weight: 97.069 kg Body Mass Index (BMI) 29.0 Intake and Output for Last 24 Hours 05/07/18 05/08/18 05/09/18 23:59 23:59 23:59 Intake Total 1042 / 1042 488 / 488 Output Total Balance 1042 / 1042 478 / 478 Laboratory Tests Past 24 Hrs 05/08/18 05/08/18 05/08/18 16:58 16:58 16:58 WBC 10.3 RBC 4.53 L Hgb 11.9 L Hct 36.5 L MCV 80.6 MCH 26.3 L MCHC 32.6 RDW 13.3 RDW Differential 39.9 Plt Count 541 H MPV 8.7 Immature Gran % (Auto) 0.100 Neut % (Auto) 84.0 H Lymph % (Auto) 9.4 L [place] % (Auto) 6.4 Eos % (Auto) 0.0 Baso % (Auto) 0.1 Absolute Neuts (auto) 8.7 H Absolute Lymphs (auto) 0.97 Total Counted Not Reportable PT 14.7 INR 1.2 APTT 42.9 H Sodium 131 L Potassium 4.0 Chloride 97 L Carbon Dioxide 24.0 Anion Gap 10 BUN 18 Creatinine 1.13 Estim Creat Clear Calc 89.66 Est GFR (MDRD) Af Amer 90 Est GFR (MDRD) Non-Af 74 BUN/Creatinine Ratio 15.9 Glucose 104 Calcium 8.9 05/09/18 05/09/18 05:45 05:45 WBC 8.9 RBC 4.20 L Hgb 11.2 L Hct 34.2 L MCV 81.4 MCH 26.7 L MCHC 32.7 RDW 13.4 RDW Differential 40.2 Plt Count 501 H MPV 8.8 Immature Gran % (Auto) 0.200 Neut % (Auto) 77.2 H Lymph % (Auto) 15.2 L [place] % (Auto) 7.0 Eos % (Auto) 0.2 Baso % (Auto) 0.2 Absolute Neuts (auto) 6.9 Absolute Lymphs (auto) 1.35 Total Counted Not Reportable PT INR APTT Sodium 135 L Potassium 4.4 Chloride 101 Carbon Dioxide 26.0 Anion Gap 8 BUN 16 Creatinine 1.01 Estim Creat Clear Calc 100.31 Est GFR (MDRD) Af Amer 102 Est GFR (MDRD) Non-Af 84 BUN/Creatinine Ratio 15.8 Glucose 113 H Calcium 8.9 Medical Necessity - Tobacco Use Smoking Status: Current every day smoker Assessment/Plan patient with post appendectomy RLQ/Pelvic abscess. CT guided drainage successful. await cultures. described as coliforms by smell. On Zosyn and Flagyl. Drain to bulb suction. clears, advance as tolerated
[2018-05-09] MEDS: Temazepam 15 MG Capsule PO (22:10)
[2018-05-10 02:15] VITALS: BP 122/79; PULSE 72; RESP 16; TEMP 36.6; O2SAT 100
[2018-05-10] MEDS: Piperacil/Tazobactam 3.375 GM/50 ML ML IV ×3 (06:24→21:48)
[2018-05-10 08:43] VITALS: BP 127/68; PULSE 83; RESP 16; TEMP 36.7; O2SAT 98
--- NOTE | 2018-05-10 09:44 | PCM.PN.SRG ---
Subjective: patient still with pain in the area, doesn't like the narcotics side effects and wants non narcotic pain meds I have suggested alternating ibuprofen with acetominophen patient tolerated diet has not really ambulated yet, and I have encouraged him to do so - Physical Exam General: Alert, Oriented x3 Oral: Moist Mucosa Neck: Supple Abdomen: Bowel Sounds Present, Soft, - - tender at catheter insertion site output is still purulent appearing Vital Signs Temp Pulse Resp BP Pulse Ox 98.1 F 83 16 127/68 H 98 05/10/18 08:43 05/10/18 08:43 05/10/18 08:43 05/10/18 08:43 05/10/18 08:43 Oxygen Delivery Method [5] Room Air Oxygen Delivery Method [4] Room Air Oxygen Delivery Method [3] Room Air Oxygen Delivery Method [2] Room Air Oxygen Delivery Method [1 ( Room Air Initial Baseline)] Oxygen Delivery Method Room Air Weight: 97.069 kg Body Mass Index (BMI) 29.0 Intake and Output for Last 24 Hours 05/08/18 05/09/18 05/10/18 23:59 23:59 23:59 Intake Total 1042 / 1042 1441 / 1441 860 / 860 Output Total 120 / 120 10 / 10 Balance 1042 / 1042 1321 / 1321 850 / 850 Microbiology Past 72 Hours 05/09/18 10:20 Gram Stain - Final Aspirate - Abdominal Medical Necessity - Tobacco Use Smoking Status: Current every day smoker Assessment/Plan Impression: post appendicitis abscess, s/p CT guided percutaneous drain placement Plan: as per Dr. Vergara, continue antibiotics, continue drain - flushing drain on a regular basis I have encouraged patient to ambulate - as this will improve circulation and antibiotic flow to the area I have recommended alternating non narcotic pain meds of ibuprofen and acetominophen - that is - 600 mg ibuprofen, then in 3 hours take 650 mg of acetominophen, then in 3 hours take 600 mg ibuprofen, etc. - patient understands
[2018-05-10] MEDS: Ibuprofen 600 MG Tablet PO ×2 (12:17→20:07)
[2018-05-10] MEDS: Lactated Ringers 1,000 ML 60 ML IV (13:08)
[2018-05-10] MEDS: 0.9 % NaCl (Sterile) Posiflush 10 mL 5 ML IV ×2 (13:10→21:48)
[2018-05-10] MEDS: Acetaminophen 325 MG Tablet 650 MG PO (14:47)
[2018-05-10 14:49] VITALS: BP 122/74; PULSE 77; RESP 18; TEMP 37.2; O2SAT 98
[2018-05-10 22:06] VITALS: BP 132/80; PULSE 75; RESP 18; TEMP 36.6; O2SAT 97
[2018-05-10] MEDS: Temazepam 15 MG Capsule PO (23:08)
[2018-05-11 04:00] VITALS: BP 130/67; PULSE 68; RESP 16; TEMP 36.8; O2SAT 97
[2018-05-11] MEDS: Piperacil/Tazobactam 3.375 GM/50 ML ML IV ×3 (06:37→22:57)
[2018-05-11] MEDS: Lactated Ringers 1,000 ML 60 ML IV (08:30)
[2018-05-11 10:00] VITALS: BP 146/85; PULSE 80; RESP 20; TEMP 36.8; O2SAT 98
[2018-05-11] MEDS: Acetaminophen 325 MG Tablet 650 MG PO ×2 (10:08→21:41)
[2018-05-11] MEDS: 0.9 % NaCl (Sterile) Posiflush 10 mL 5 ML IV ×2 (11:23→21:39)
--- NOTE | 2018-05-11 11:43 | PCM.PN.SRG ---
Subjective: patient states that he is improving, only complaining of being sore at drain site alternating acetominphen and ibuprofen helping also decreased night sweats ambulating well - Physical Exam General: Alert, Oriented x3 Oral: Moist Mucosa Neck: Supple Lungs: Normal air movement Abdomen: Soft, - - COLE drain output is less purulent becoming more serous, decreasing output Vital Signs Temp Pulse Resp BP Pulse Ox 98.2 F 80 20 H 146/85 H 98 05/11/18 10:00 05/11/18 10:00 05/11/18 10:00 05/11/18 10:00 05/11/18 10:00 Oxygen Delivery Method [5] Room Air Oxygen Delivery Method [4] Room Air Oxygen Delivery Method [3] Room Air Oxygen Delivery Method [2] Room Air Oxygen Delivery Method [1 ( Room Air Initial Baseline)] Oxygen Delivery Method Room Air Weight: 97.069 kg Body Mass Index (BMI) 29.0 Intake and Output for Last 24 Hours 05/09/18 05/10/18 05/11/18 23:59 23:59 23:59 Intake Total 1441 / 1441 2759 / 2759 437 / 437 Output Total 120 / 120 30 / 30 Balance 1321 / 1321 2729 / 2729 437 / 437 Microbiology Past 72 Hours 05/09/18 10:20 Gram Stain - Final Aspirate - Abdominal Wound Culture - Final Escherichia coli Medical Necessity - Tobacco Use Smoking Status: Current every day smoker Assessment/Plan Impression: post appendicitis abscess, s/p CT guided percutaneous drain placement Plan: as per Dr. Vergara, continue antibiotics, continue drain - flushing drain on a regular basis I have encouraged patient to ambulate - as this will improve circulation and antibiotic flow to the area Patient tolerating pain control with alternating non narcotic pain meds of ibuprofen and acetominophen - that is - 600 mg ibuprofen, then in 3 hours take 650 mg of acetominophen, then in 3 hours take 600 mg ibuprofen, etc.
[2018-05-11] MEDS: Morphine 4 MG/ML Syringe IV (15:30)
[2018-05-11 16:00] VITALS: BP 134/84; PULSE 84; RESP 20; TEMP 36.7; O2SAT 100
[2018-05-11] MEDS: Ibuprofen 600 MG Tablet PO (16:41)
[2018-05-11 21:52] VITALS: BP 128/93; PULSE 66; RESP 16; TEMP 37.1; O2SAT 99
[2018-05-12] MEDS: Lactated Ringers 1,000 ML 60 ML IV (02:39)
[2018-05-12 05:15] VITALS: BP 146/91; PULSE 63; RESP 18; TEMP 36.7; O2SAT 100
[2018-05-12] MEDS: Piperacil/Tazobactam 3.375 GM/50 ML ML IV (06:33)
[2018-05-12] MEDS: Calcium Carbonate 500 MG Tablet 1000 MG PO (06:37)
--- NOTE | 2018-05-12 06:56 | CT_ITS ---
STUDY: CT ABDOMEN AND PELVIS WITHOUT CONTRAST REASON FOR EXAM: Male, 47 years old. Follow-up for right lower quadrant abscess drainage. Status post appendectomy. RADIATION DOSAGE (If Supplied By Facility): CTDIvol = ( 12.22 ) mGy, DLP = ( 690.12 ) mGycm TECHNIQUE: Transaxial images were obtained from the dome of the diaphragm to the symphysis pubis with oral contrast, and without intravenous contrast. Sagittal and coronal images were reconstructed. Individualized dose optimization techniques were used for this CT. COMPARISON: Comparison is made with prior study dated May 08, 2018 and May 09, 2018. FINDINGS: Residual increased markings at the lung bases suggestive of atelectasis. The visualized portions of the heart are within normal limits. Normal liver. Normal gallbladder and extrahepatic biliary system. Normal spleen. Normal pancreas. Normal bilateral adrenal glands. Normal right kidney. Normal left kidney. There is a small hiatal hernia. Normal small intestine. A percutaneous drainage catheter is seen in the right lower quadrant. The previously seen inhomogeneous abscess collection has markedly decreased in size. Residual changes persist. There is evidence of slight enlarged mesenteric lymph node within the mesenteric fat in the right lower quadrant at the site of the abscess drainage. Diffuse sigmoid diverticulosis. There is non-visualization of the appendix. There is scattered atherosclerotic calcification of the abdominal aorta, without a demonstrated aneurysm. Normal inferior vena cava. Normal retroperitoneum. Normal urinary bladder. Normal abdominal wall. Normal osseous structures. CT/Abdomen/Pelvis without Cont IMPRESSION: A drainage catheter is within the abscess cavity in the right lower quadrant. There has been a marked degree of improvement. Residual changes persist as well as small mesenteric lymph nodes at that site. Electronically Signed: Joe Maurer MD at 9:47 EDT Tel [phone], Service support ,
[2018-05-12] MEDS: 0.9 % NaCl (Sterile) Posiflush 10 mL 5 ML IV (08:27)
[2018-05-12 09:01] VITALS: BP 146/95; PULSE 63; RESP 18; TEMP 36.8; O2SAT 96
--- NOTE | 2018-05-12 10:15 | PCM.PN.SRG ---
Subjective: mild pain - Physical Exam General: Alert, Oriented x3, Cooperative Lungs: Clear to auscultation, Normal air movement Cardiovascular: Regular rate, No murmurs Abdomen: Bowel Sounds Present, Soft, Non Tender, - - pigtail site clean Vital Signs Temp Pulse Resp BP Pulse Ox 98.2 F 63 18 146/95 H 96 05/12/18 09:01 05/12/18 09:01 05/12/18 09:01 05/12/18 09:01 05/12/18 09:01 Oxygen Delivery Method [5] Room Air Oxygen Delivery Method [4] Room Air Oxygen Delivery Method [3] Room Air Oxygen Delivery Method [2] Room Air Oxygen Delivery Method [1 ( Room Air Initial Baseline)] Oxygen Delivery Method Room Air Weight: 97.069 kg Body Mass Index (BMI) 29.0 Intake and Output for Last 24 Hours 05/10/18 05/11/18 05/12/18 23:59 23:59 23:59 Intake Total 2759 / 2759 2759 / 2759 1159.7 / 1159.7 Output Total Balance 2729 / 2729 2754 / 2754 1148.7 / 1148.7 Microbiology Past 72 Hours 05/09/18 10:20 Gram Stain - Final Aspirate - Abdominal Wound Culture - Final Escherichia coli Medical Necessity - Tobacco Use Smoking Status: Current every day smoker Assessment/Plan patient with post appendectomy RLQ/Pelvic abscess. CT guided drainage successful - follow up Ct scan with minimal cavity. patient afebrile. cultures - E coli - sensitive to Zosyn and Levaquin. will discharge patient on Levaquin and Flagyl.. patient to return to my office tomorrow for probable drain removal
--- NOTE | 2018-05-12 10:18 | DCINST_ITS ---
You will use the following diet at home:: No restrictions Discharge Activity: May Not Shower - until drain removed Call your doctor if your incision/area has: Continuous Slow Oozing Call your doctor if you observe: Fever of 101 or Higher, Inability to have a bowel movement Allergies/Adverse Reactions: Allergies No Known Allergies Allergy (Verified 04/21/18 19:57) Medications to take at Discharge Calcium Carbonate [Tums] 1,000 mg PO Q4H PRN PRN tablet 04/24/18 Hydrocodone Bitart/Apap 5-325 [[place] 5/325] 1 - 2 tab PO Q6H PRN PRN 7 Days #14 tab 04/24/18 Naproxen Sodium [Aleve] 220 mg PO Q8H PRN PRN 05/08/18 0.9 % NaCl (Sterile) Posiflush [0.9% NaCl (Sterile) Posiflush] 5 ml IV Q12 disp.syrin 05/12/18 Acetaminophen [Tylenol Tablet] 650 mg PO Q6H PRN PRN tablet 05/12/18 Levofloxacin [Levaquin] 750 mg PO DAILY 7 Days #7 tab 05/12/18 Metronidazole [Flagyl] 500 mg PO TID 7 Days #21 tab 05/12/18 The following prescriptions were given: Levofloxacin [Levaquin] 750 mg PO DAILY 7 Days #7 tab Metronidazole [Flagyl] 500 mg PO TID 7 Days #21 tab Primary Care Physician: Care Physician,No Primary [Primary Care Provider] - Test Results: Test results from this visit will be discussed in further detail at your follow- up appointment, if applicable. Please Follow Up With: Nam Vergara MD When: tomorrow at 2pm
--- NOTE | 2018-05-12 17:29 | DS.PCM_ITS ---
Discharge Date and Diagnosis Date of Admission: 05/08/18 Date of Discharge: 05/12/18 - Primary Discharge Diagnosis post appendectomy right lower quadrant abscess Hospital Course and Treatment Operations: appendectomy Summary of Care Provided: The patient is a 47 year old M with a post appendiceal abscess Parth is a patient I am following for acute appendicitis. ~I performed a laparoscopic appendectomy on April 21, 2018. ~The patient's appendix demonstrated acute appendicitis with perforation. ~The patient did well post operatively and was discharged to home on post operative day 2. ? The patient currently notes no complaints. ~his appetite has been good. ~he denies fever, chills or abdominal pain. ~he does note some mild incisional discomfort. ? He was doing well but now notes fever to 101.5 and right-sided abdominal discomfort. ~He has had a decrease in the good appetite. ~He is moving his bowels. ? Given his above symptoms. ~We obtained an urgent CT scan and laboratory studies. ~His white blood cell count was 11.5. ~CT scan was obtained, however, which does show a abscess approximately 5 cm of the base of the appendix consistent with a post appendectomy abscess. he was readmitted to [facility] on May 08. Laboratory studies were obtained which demonstrated normal coags. He underwent percutaneous drainage of his periappendiceal abscess on SaturdayMay 09. There was good return of pus and post images demonstrated good collapse of the abscess cavity. Cultures were obtained. This returned as Escherichia coli sensitive to Zosyn and Levaquin. Anaerobic cultures are currently pending. The patient did well over the weekend on Zosyn and Flagyl. He had no fever, he is tolerating a general diet. Repeat CAT scan this morning demonstrated good drainage of the cavity. He'll be discharged home with plans to follow-up in my office tomorrow for likely removal of the catheter/pigtail drain Discharge Activity: May Not Shower - until drain removed Call your doctor if your incision/area has: Continuous Slow Oozing Call your doctor if you observe: Fever of 101 or Higher, Inability to have a bowel movement Home Medications: Medications to take at Discharge Calcium Carbonate [Tums] 1,000 mg PO Q4H PRN PRN tablet 04/24/18 Hydrocodone Bitart/Apap 5-325 [[place] 5/325] 1 - 2 tab PO Q6H PRN PRN 7 Days #14 tab 04/24/18 Naproxen Sodium [Aleve] 220 mg PO Q8H PRN PRN 05/08/18 0.9 % NaCl (Sterile) Posiflush [0.9% NaCl (Sterile) Posiflush] 5 ml IV Q12 disp.syrin 05/12/18 Acetaminophen [Tylenol Tablet] 650 mg PO Q6H PRN PRN tablet 05/12/18 Levofloxacin [Levaquin] 750 mg PO DAILY 7 Days #7 tab 05/12/18 Metronidazole [Flagyl] 500 mg PO TID 7 Days #21 tab 05/12/18 Following Prescrptions Were Given to Patient: Levofloxacin [Levaquin] 750 mg PO DAILY 7 Days #7 tab Metronidazole [Flagyl] 500 mg PO TID 7 Days #21 tab Primary Care Physician: Care Physician,No Primary [Primary Care Provider] - Please Follow Up With: Nam Vergara MD When: tomorrow at 2pm Medical Necessity - Tobacco Use Smoking Status: Current every day smoker Meaningful Use Info Meaningful Use Diagnoses (Choose all that apply): None applicable
== END 2018-05-12 12:00 | disposition home or self-care (01) | DRG 862 ==
PROVIDERS: Admitting Provider Surgery; Visit Provider Surgery
DX: T81.4XXA Infection following a procedure, initial encounter (principal); K35.3 Acute appendicitis with localized peritonitis; B96.20 Unspecified Escherichia coli [E. coli] as the cause of diseases classified elsewhere; F17.200 Nicotine dependence, unspecified, uncomplicated; Z90.89 Acquired absence of other organs
CPT/HCPCS: 20501; 36415; 74176; 77012; 80048; 85025; 85610; 85730; 87070; 87075; 87076; 87077; 87186; 87205; 99156; J7120

== ENCOUNTER → 2019-12-31 13:21 | Outpatient (CLI) | payer OTHER, SELFPAY ==
[2019-12-31 14:16] LABS: Absolute Lymphocyte Count 1.27 X10^3/uL (0.83-4.51); Absolute Neutrophil Count 2.3 X10^3/uL (2.0-7.7); Basophil# 0.02 X10^3/uL; Basophil% 0.5 % (0-1); Eosinophil# 0.06 X10^3/uL; Eosinophils% 1.5 % (0-5); Hematocrit 47.3 % (40-54); Lymphocyte # 1.27 X10^3/ul (4.0); Mean Corp Hgb Conc 33.8 g/dL (32-36); Mean Corpuscular Hgb 26.8 pg (27.0-32.0); Mean Corpuscular Volume 79.1 fL (80-94); Mean Platelet Vol. 9.1 fl (6.2-12.0); Monocyte# 0.31 X10^3/uL; Monocyte% 7.8 % (0-10); NRBC Flagged by Analyzer 0 % (0-5); Neutrophil % 57.9 % (47-70); Platelet Count 239 K/mm3 (150-450); RBC Distribution Width SD 39.6 fl (35.1-43.9); Red Blood Count 5.98 M/mm3 (4.6-6.2)
[2019-12-31 14:35] LABS: AST(SGOT) 27 U/L (15-37); Alanine Aminotransfer ALT/SGPT 57 U/L (16-61); Albumin, Serum 4.3 g/dL (3.2-5.0); Alkaline Phosphatase 50 U/L (45-117); Anion Gap 5 (5-15); BUN 17 mg/dL (7-18); BUN/Creat Ratio 18.1 RATIO (10-20); Chloride 107 mmol/L (98-107); Cholesterol 169 mg/dL (200); Creatinine, Serum 0.94 mg/dL (0.70-1.30); EST Glomerular Filtration Rate 91 mL/min (>60); Est Glom Filt Rate - Afr Amer 110 mL/min (>60); Globulin 4.1 g/dL (2.2-4.2); Glucose 101 mg/dL (74-106); High Density Lipoprotein 33 mg/dL; Potassium 4.1 mmol/L (3.5-5.1); Protein, Total 8.4 g/dL (6.4-8.2); Sodium Level 139 mmol/L (136-145); Triglycerides 177 mg/dL; Very Low Density Lipoprotein 35 mg/dL (5-40)
[2019-12-31 14:45] LABS: Hepatitis B Surface Antibody Non-Reactive
[2019-12-31 17:30] LABS: Chlamydia Trachomatis by PCR Negative (Negative); Neisserai gonorrhoeae by PCR Negative (Negative); Probe Check PASS; Sample Adequacy Control PASS; Specimen Processing Control PASS
[2020-01-02 14:07] LABS: Absolute CD4 Helper 380 /uL (359-1519); Basophils (Absolute) 0 x10E3/uL (0.0-0.2); CD4/CD8 Ratio 0.71 (0.92-3.72); Eosinophils 1 % (Not Estab.); Eosinophils (Absolute) 0 x10E3/uL (0.0-0.4); Hematocrit 47.7 % (37.5-51.0); Hemoglobin 16.2 g/dL (13.0-17.7); Immature Granulocytes 1 % (Not Estab.); Immature Granulocytes Absolute 0 x10E3/uL (0.0-0.1); Lymphs 33 % (Not Estab.); Lymphs (Absolute) 1.2 x10E3/uL (0.7-3.1); MCH 27.2 pg (26.6-33.0); MCV 80 fL (79-97); Monocytes 8 % (Not Estab.); Monocytes (Absolute) 0.3 x10E3/uL (0.1-0.9); Neutrophils 56 % (Not Estab.); Neutrophils (Absolute) 2.2 x10E3/uL (1.4-7.0); Percent % CD4 Pos. Lymph. 31.7 % (30.8-58.5); Percent % CD8 Pos. Lymph. 44.7 % (12.0-35.5); Platelets 241 x10E3/uL (150-450); RBC Count 5.95 x10E6/uL (4.14-5.80); RDW 15.3 % (11.6-15.4); WBC Count 3.8 x10E3/uL (3.4-10.8)
[2020-01-04 13:40] LABS: Hepatitis A AB, Total Positive (Negative)
[2020-01-08 04:37] LABS: Rapid Plasmin Reagin (RPR) NONREACTIVE (NONREACTIVE)
[2020-01-17 08:15] LABS: HIV-1 RNA by PCR, Quant. 40100 copies/mL (.); LOG10 HIV-1 RNA 4.603 (.)
== END ==
PROVIDERS: Referring Provider Internal Medicine Infectious Disease; Visit Provider Internal Medicine Infectious Disease
DX: B20 Human immunodeficiency virus [HIV] disease (principal); E78.5 Hyperlipidemia, unspecified
CPT/HCPCS: 36415; 80053; 80061; 85025; 86360; 86592; 86706; 86708; 87491; 87536; 87591

== ENCOUNTER → 2020-03-09 12:50 | Outpatient (CLI) | payer OTHER, SELFPAY ==
[2020-03-09 13:40] LABS: Absolute Lymphocyte Count 1.79 X10^3/uL (0.83-4.51); Basophil# 0.04 X10^3/uL; Eosinophil# 0.05 X10^3/uL; Eosinophils% 1.2 % (0-5); Hematocrit 47.6 % (40-54); Hemoglobin 15.8 g/dL (13.0-16.5); Lymphocyte # 1.79 X10^3/ul (4.0); Lymphocyte % 43.7 % (19-41); Mean Corp Hgb Conc 33.2 g/dL (32-36); Mean Corpuscular Hgb 27.1 pg (27.0-32.0); Mean Corpuscular Volume 81.6 fL (80-94); Mean Platelet Vol. 8.9 fl (6.2-12.0); Monocyte# 0.27 X10^3/uL; Monocyte% 6.6 % (0-10); NRBC Flagged by Analyzer 0 % (0-5); Neutrophil # 1.95 X10^3/uL (2.7-7.7); Neutrophil % 47.5 % (47-70); Platelet Count 277 K/mm3 (150-450); RBC Distribution Width SD 40.7 fl (35.1-43.9); Red Blood Count 5.83 M/mm3 (4.6-6.2); White Blood Count 4.1 K/mm3 (4.4-11.0)
[2020-03-09 14:09] LABS: AST(SGOT) 24 U/L (15-37); Alanine Aminotransfer ALT/SGPT 50 U/L (16-61); Albumin, Serum 4.1 g/dL (3.2-5.0); Alkaline Phosphatase 50 U/L (45-117); Anion Gap 6 (5-15); BUN 16 mg/dL (7-18); Bilirubin, Direct 0.19 mg/dL (0.00-0.30); Calcium,Total 9.1 mg/dL (8.5-10.1); Chloride 106 mmol/L (98-107); Creatinine, Serum 1.14 mg/dL (0.70-1.30); EST Glomerular Filtration Rate 73 mL/min (>60); Est Glom Filt Rate - Afr Amer 88 mL/min (>60); Glucose 108 mg/dL (74-106); Potassium 4.3 mmol/L (3.5-5.1); Protein, Total 8.1 g/dL (6.4-8.2); Sodium Level 138 mmol/L (136-145)
[2020-03-10 14:08] LABS: Absolute CD4 Helper 558 /uL (359-1519); Basophils (Absolute) 0 x10E3/uL (0.0-0.2); CD4/CD8 Ratio 0.73 (0.92-3.72); Eosinophils 2 % (Not Estab.); Eosinophils (Absolute) 0.1 x10E3/uL (0.0-0.4); Hematocrit 48.4 % (37.5-51.0); Hemoglobin 15.7 g/dL (13.0-17.7); Immature Granulocytes 1 % (Not Estab.); Lymphs 43 % (Not Estab.); Lymphs (Absolute) 1.8 x10E3/uL (0.7-3.1); MCH 26.8 pg (26.6-33.0); MCHC 32.4 g/dL (31.5-35.7); MCV 83 fL (79-97); Monocytes 6 % (Not Estab.); Monocytes (Absolute) 0.2 x10E3/uL (0.1-0.9); Neutrophils 47 % (Not Estab.); Percent % CD8 Pos. Lymph. 42.7 % (12.0-35.5); Platelets 279 x10E3/uL (150-450); RBC Count 5.86 x10E6/uL (4.14-5.80); RDW 15.8 % (11.6-15.4); WBC Count 4.1 x10E3/uL (3.4-10.8)
[2020-03-10 15:31] LABS: Immature Granulocytes Absolute 0 x10E3/uL (0.0-0.1)
[2020-03-16 14:02] LABS: HIV-1 RNA by PCR, Quant. 30 copies/mL (.); LOG10 HIV-1 RNA 1.477 (.)
--- OUTSIDE RECORDS SUMMARY | 2020-07-26 17:54 | XMS RPT_ITS | CCD ---
:1970 External Reference #:[id number] Author Organization [facility] Care Team Providers Name Role Phone IZAIAH, T Unavailable Unavailable IZAIAH, T Unavailable Unavailable IZAIAH, T Unavailable Unavailable IZAIAH, T Unavailable Unavailable IZAIAH, T Unavailable Unavailable IZAIAH, T Unavailable Unavailable IZAIAH, T Unavailable Unavailable Problems Category Problem Name Status Date Location Abdominal pain Right lower quadrant Active 05-08-2018 - [facility] pain [place] (0000 0) Appendicitis and other Acute appendicitis with Active 018 - [facility] appendiceal conditions localized peritonitis [place] ([id number]) Unclassified Unknown / UNK(Unknown) Active 05-08-2018 - [facility] (0000 0) Results Result Name Value Range Unit Interpretation Flag Date Location progress on 2018-04 Protein HNO ID: [id number]: Nam robertson 05-13-2018 [place] mass conc GuttmanService: (none)Author Type: Clinic PhysicianType: Progress NotesFiled: [place] 05/13/2018 7:49 PMNote Text:FOLLOW UP VISIT ([id number]) - APPENDICITISNAME: Parth [facility] NO[facility] [id number] OF SERVICE: 05/13/2018DOB: 1970REFERRING PHYSICIAN: Clary patient is a 47 year old male with a complaint of fever and abdominaldiscomfort. Status post appendectomy.Parth is a patient I am following for acute appendicitis. I performed alaparoscopic appendectomy on April 21, 2018. The patient's appendixdemonstrated acute appendicitis with perforation. The patient did wellpost operatively and was discharged to home on post operative day 2.The patient currently notes no complaints. his appetite has been good.he denies fever, chills or abdominal pain. he does note some mildincisional discomfort.He was doing well but on May 08 noted fever to 101.5 and right-sidedabdominal discomfort. He has had a decrease in the good appetite. He ismoving his bowels.Given his above symptoms. We obtained an urgent CT scan and laboratorystudies. His white blood cell count was 11.5. CT scan was obtained,however, which does show a abscess approximately 5 cm of the base of theappendix consistent with a post appendectomy abscess. He was admitted andunderwent CT-guided drainage on May 09. The patient was restarted on IVantibiotics. He was afebrile and doing well and discharged home on . He was discharged on Levaquin orally. He returns today. He has hadminimal output from the drain. VITALS: Blood pressure 132/84, pulse 92, temperature 36.6 ?C (97.8 ?F),temperature source Temporal Artery.On examination, the abdomen is benign. The incisions are healing wellwithout signs of infection or inflammation. There is minimal right lowerquadrant tenderness. The pigtail drain was removed with gentle tractionand a dressing applied.AssessmentIMPRESSION: status post laparoscopic appendectomy for acute appendicitisPLAN: If the patient notes any problems or signs of wound infections, thepatient should contact me immediately. he may return to his regularactivities as tolerated.Diagnoses: (K35.3) Acute appendicitis with localized peritonitis (primaryencounter diagnosis)(R10.31) Right lower quadrant abdominal pain Return to Clinic: The patient is instructed to follow-up with me inone week. MD amrit Montez on 2018-05-13 CNOV Office Visit Normal 05-13-2018 Ibeth and (ANTOINETTE) --------PARTH MORENO D ([id number]) 1970 [facility] Time Provider Department05/13/18 2:30 PM NAM BLISS During [facility] your visit today, we recorde d the following information about you: Temperature Pulse Blood pressure (95824) 97.8 degrees 92/minute 132/8 Maerly Bliss MD 05/13/2018 7:49 PM SignedFOLLOW UP VISIT - APPENDICITISNAME: Parth Buck hnsonINIC NO.: [id number] OF SERVICE: 05/13/2018DOB: 1970REFERRING PHYSICIAN: Samuele patient i s a 47 year old male with a complaint of fever and abdominaldiscomfort. Status post appendectomy.Skyler benton is a patient I am following for acute appendicitis. I performed alaparoscopic appendectomy o n April 21, 2018. The patient's appendix demonstratedacute appendicitis with perforation. The patient did well post operatively andwas discharged to home on post operative day 2.The patient currently note s no complaints. his appetite has been good. hedenies fever, chills or abdominal pain. he does note some mild incisionaldiscomfort.He was doing well but on May 08 noted fever to 101.5 and right-riya ed abdominaldiscomfort. He has had a decrease in the good appetite. He is moving hisbowels.Given his a mart symptoms. We obtained an urgent CT scan and laboratorystudies. His white blood cell count was [address] scan was obtained, however,which does show a abscess approximately 5 cm of the base of the appe ndixconsistent with a post appendectomy abscess. He was admitted and underwentCT-guided drainage on May 09. The patient was restarted on IV antibiotics.He was afebrile and doing well and discharge d home on May 12. He wasdischarged on Levaquin orally. He returns today. He has had minimal outputfro m the drain. VITALS: Blood pressure 132/84, pulse 92, temperature 36.6 ?C (97.8 ?F),temperature source Temporal Artery.On examination, the abdomen is benign. The incisions are healing well withoutsigns of infection or inflammation. There is minimal right lower quadranttenderness. The pigtail drain was removed with gentle traction and a dressingapplied.AssessmentIM PRESSION: status post laparoscopic appendectomy for acute appendicitisPLAN: If the pat ient notes any problems or signs of wound infections, thepatient should contact me immediately. he m ay return to his regular activitiesas tolerated.Diagnoses: (K35.3) Acute appendicitis with localized peritonitis (primaryencounter diagnosis)(R10.31) Right lower quadrant abdominal pain Return to Cli piero: The patient is instructed to follow-up with me in oneweek. Gamaliel Montez Provider: NAM BLISS [[id number]]Allergies As of Date: 05/13/2018(No Known Allergies)Date Reviewed: 05/13/2018Reviewed by: Rahul Newell LPN - Melissa Granadose ssedReason for Visit: Post Op [174] Cmt: Post op AppyPrimary Visit Diagnosis:Acute appendicitis with localized peritonitis [K35.3] Other Visit Diagnosis:Right lower quadrant abdominal pain [R10 .31]Problem List As Of Date: 05/13/2018(None) Status:Closed by NAM BLISS MD on 05/13/18 iva cbc on 2017 Erythrocyte distribution 13.6 11.5-15.0 % Normal 05-08 [facility] width Auto Ratio (RBC) [place] ([id number]) Hematocrit Auto Volume 38.5 39.0-51.0 % Low 018 [facility] Fraction (Bld) [facility] ([id number]) Hemoglobin mass conc 12.6 13.0-17.0 g/dL Low 8 [facility] (Bld) [place] ([id number]) MCH Auto Entitic mass 26.6 26.0-34.0 pg Normal 05-08-20 18 [facility] (RBC) [place] ([id number]) MCHC Auto mass conc (RBC) 32.7 30.5-36.0 g/dL Normal 04-14 [facility] ([id number]) MCV Auto Entitic volume 81.4 80.0-100.0 fL Normal 05-08 [facility] (RBC) [place] ([id number]) Platelet mean volume Auto 8.5 9.0-12.7 fL Low 04-14 [facility] Entitic volume (Bld) [place] ([id number]) Comment: Result Comment: Test perform ed at: [facility] [place], [address] [place], [place] [address]. RBC Auto #/vol (Bld) 4.73 4.20-6.00 m/uL Normal 8 [facility] ([id number]) WBC Auto #/vol (Bld) 11.10 3.70-11.00 k/uL High 05-08-20 18 [facility] ([id number]) Iva Platelet Cnt 602 150-400 k/uL High 8 [facility] ([id number]) progress on 2018-04 Protein HNO ID: [id number]: Nam robertson 05-08-2018 [place] mass conc GuttmanService: (none)Author Type: Clinic PhysicianType: Progress NotesFiled: 05/08/2018 [place] 7:37 PMNote Text:HISTORY AND PHYSICALParth Lucero ([id number]) Jmzlzka1970REFERRING PHYSICIAN: SelfCHIEF COMPLAINT: Post Op (post op Appy)HPI: The patient is a 47 year old male with a complaint of fever andabdominal discomfort. Status post appendectomy.Parth is a patient I am following for acute appendicitis. I performed alaparoscopic appendectomy on April 21, 2018. The patient's appendixdemonstrated acute appendicitis with perforation. The patient did wellpost operatively and was discharged to home on post operative day 2.The patient currently notes no complaints. his appetite has been good.he denies fever, chills or abdominal pain. he does note some mildincisional discomfort.He was doing well but now notes fever to 101.5 and right-sided abdominaldiscomfort. He has had a decrease in the good appetite. He is moving hisbowels.Given his above symptoms. We obtained an urgent CT scan and laboratorystudies. His white blood cell count was 11.5. CT scan was obtained,however, which does show a abscess approximately 5 cm of the base of theappendix consistent with a post appendectomy abscess.I spoke with Dr. Johnson who felt it was likely drainable.No past medical history on file.No past surgical history on file.Laparoscopic appendectomy-April 21, 2018-appendix was perforated the time ofsurgeryCurrent Outpatient Prescriptions:iv contrast (will be provided with radiology test) CT ABD/PEL -Inject,intravenously, once for 1 dose.No IV access, insert saline lock prior tothe beginning of sedation, infusion, injection of imaging exam.Discontinue saline lock post exam. If Pt. has a central line or IVAD, mayaccess for administration according to line specific nursing protocol.Once exam is complete flush line and de-access according to line specificnursing protocol in the CT contrast administration guidelines link.enteric contrast (will be provided with radiology test) For CT ABD/PEL WIVCON Routine order Administer, As Directed One Time Only, via Oral,Rectal, both Oral and Rectal, Enteric Tube, Stoma or Indwelling Catheter,Enteric Contrast as designated per enteric contrast guidelinesNo current facility-administered medications for this visit.ALLERGIES: Patient has no known allergies.PERSONAL HISTORY: Social History Marital status: Single Spouse name: Years of education: Number of children:Social History Main Topics Drug use: UnknownFAMILY HISTORY: No family history on file.REVIEW OF SYMPTOMS: The review of systems data was entered by the nurse and reviewed by meThere are no exam notes on file for this visit.PHYSICAL EXAMINATION:General: The patient is 47 year old male, well nourished, well hydratedin no acute distress. The patient is oriented to time, place, and person.VITALS: Blood pressure 124/68, pulse 100, temperature 37.2 ?C (99 ?F),temperature source Temporal Artery.HEENT: Normal cephalic, ataumatic, pupils are equally round, sclera areanicteric, mucous membranes are moist, oropharynx is clear. Neck has nomasses, asymmetry or lymphadenopathy. Thyroid is unremarkable.Respiratory: Clear to auscultation and percussion. Normal respiratoryexcursion and pattern.Cardiac: Examination is regular rate and rhythm.Abdominal exam: Soft,tender in the right lower quadrant withoutperitoneal signs, with no palpable masses. No hepatosplenomegaly. Nopalpable hernias.Rectal exam: exam deferredExtremities: no clubbing, cyanosis or edema. No adenopathy.Other:LABORATORY VALUES: As NotedRADIOLOGIC STUDIES: As NotedAssessmentIMPRESSION: Post appendiceal abscess-delayedPLAN: The patient will be admitted to [facility].Urgent coags will be obtained. We'll plan for CT-guided drainage of theabscess and restart antibiotics.Diagnoses: (K35.3) Acute appendicitis with localized peritonitis (primaryencounter diagnosis)(R10.31) Right lower quadrant abdominal painThis note was partially generated using Easy Tempo voice recognition system,and there may be some incorrect words, spellings, and punctuation thatwere not noted in checking the note before saving. Nam Bliss MD ct abd/pel w ivcon on 2018-05-08 CT ABD/PEL * * *Final Report* * *DATE OF EXAM: Apr05-08-2018 [facility] IVCON 2017 11:25AM [facility] 0530 - CT ABD/PEL [facility] IVCON / [place] REASON: Right lower quadrant pain * * * ([id number]) * Physician Interpretation * * * * EXAMINATION: CT ABDOMEN AND PELVIS WITH IV CONTRASTCLINICAL HISTORY: Right lower quadrant abdominal pain several days status post appendectomyTECHNIQUE: CT of the abdomen and pelvis was performed using standard technique, scanning from just above the dome of the diaphragm to the symphysis pubis.MQ: CTAP_3Contrast:IV: 150 ml of Omnipaque 300Oral: ml of 50ML Omnipaque 240 W 850ML WaterCT Radiation dose: Integrated Dose-length product (DLP) for this visit = 790 mGy*cm.CT Dose Reduction Employed: mAs-kVp adjusted based on patient size-ageCOMPARISON: None.RESULT:Liver: No mass.Biliary: No bile duct dilation.Spleen: No mass. Mild splenomegaly at 15 cm. No focal lesion.Pancreas: No mass or duct dilation.Adrenals: No mass.Kidneys: UnremarkableGI tract: 6 x 4.5 x 4 cm fluid collection with irregular enhancing lerma and septations along side and displacing the lower ascending colon. Colonic wall just cephalad to this level is slightly thickened, probably reactive. Posterior to the abscess in the pericolic gutter there is a small amount of fluid and fascial thickening and fat stranding consistent with inflammatory reaction.Lymph nodes: No abdominal or pelvic lymphadenopathy.Mesentery/Peritoneum: The aboveRetroperitoneum: See aboveVasculature: The celiac axis and SMA are patent. The portal vein and branches, splenic vein, SMV, and hepatic veins are patent.Pelvis: See aboveBones/Soft Tissues: IntactLower thorax: Right base subsegmental atelectasis.IMPRESSION:Pericolonic abscess adjacent to the lower ascending colon. Sap Hana Developer: PSCRebeca Transcribe Date/Time: May 08 2018 11:33ADictated by : JUANCARLOS AUSTIN MDThis examination was interpreted and the report reviewed and electronically signed by: JUANCARLOS AUSTIN MD on May 08 2018 11:45AM [id number] comp metabolic panel on 2018-05-08 Albumin mass conc 3.8 3.9-4.9 g/dL Low 05-08-2018 [facility] ([id number]) Comment: Performed By: #### CMP ####C [address] [phone] ALP enzyme act/vol 96 36-108 U/L Normal 05-08-2018 [facility] ([id number]) Comment: Performed By: #### CMP ####C [address] [phone] ALT enzyme act/vol 60 10-54 U/L High 05-08-2018 [facility] ([id number]) Comment: Performed By: #### CMP ####C [address] [phone] Anion gap 3 molar conc 21 9-18 mmol/L High 018 [facility] ([id number]) Comment: Performed By: #### CMP ####C [address] [phone] AST enzyme act/vol 49 14-40 U/L High 05-08-2018 [facility] ([id number]) Comment: Performed By: #### CMP ####C [address] [phone] Bilirubin mass conc 0.5 0.2-1.3 mg/dL Normal 05-08-2018 [facility] ([id number]) Comment: Performed By: #### CMP ####C [address] [place] [phone] Calcium mass conc 9.6 8.5-10.2 mg/dL Normal 05-08-2018 [facility] ([id number]) Comment: Performed By: #### CMP ####C [place] [phone] Chloride molar conc 93 97-105 mmol/L Low 05-08-2018 [facility] ([id number]) Comment: Performed By: #### CMP ####C [place] [phone] CO2 molar conc 20 22-30 mmol/L Low 05-08-2018 [facility] ([id number]) Comment: Performed By: #### CMP ####C [place] [phone] Creatinine mass conc 1.08 0.73-1.22 mg/dL Normal 8 [facility] ([id number]) Comment: Performed By: #### CMP ####C [address] [place], [place] [phone]- [phone] eGFR- Amer. >60 Normal 05-08-2018 [facility] ([id number]) Comment: Performed By: #### CMP ####C [place] [phone] GFR/1.73 sq M predicted >60 mL/min/{1.73_m2} Normal 05-08-2018 [facility] among non-blacks MDRD [place] ([id number]) vol rate/area (S/P/Bld) Comment: Result Comment: eGFR (Estima jeny GFR) Units of measure: mL/min/1.73 meters squaredeGFR is derived from the reexpressed MDRD Study equation using the following parameters: serum creatinine, age, gender and race. The creatinine assay has been calibrated to be traceable to IDIN.An eGFR <60 mL/min/1.73m2 for >3 months is consistent with chronic kidney disease. Refer to KDOQI guidelines for clinical inte rpretation.In patients with unstable renal function, e.g. those with ac landen kidney injury, the eGFR may not accurately reflect actual GFR. Performed By: #### CMP ####C [address] [phone] Glucose mass conc 92 74-99 mg/dL Normal 05-08-2018 [facility] ([id number]) Comment: Result Comment: The [place] Diabetes Association (ADA) provides guidance for cutoff values for fastin g glucose and random glucose. The ADA defines fasting as no caloric intake for at least 8 hours. Fasting plasma glucose results between 100 to 125 m g/dL indicate increased risk for diabetes (prediabetes).Fasting plasma glucose results greater than or equal to 126 mg/dL meet the criteria for diagnosis of diabetes. In the absence of unequivocal hyperglycemia, r esults should be confirmed by repeat testing. In a patient with classic sympt oms of hyperglycemia or hyperglycemic crisis, random plasma glucose result s greater than or equal to 200 mg/dL meet the criteria for diagnosis of di abetes.Reference: Standards of Medical Care in Diabetes 2016, [place] Diab etes Association. Diabetes Care. 2016.39(Suppl 1). Performed By: #### CMP ####C [address] [phone] Potassium molar conc 4.9 3.7-5.1 mmol/L Normal 8 [facility] ([id number]) Comment: Performed By: #### CMP ####C [address] [phone] Protein mass conc 9.1 6.3-8.0 g/dL High 05-08-2018 [facility] ([id number]) Comment: Performed By: #### CMP ####C [address] [phone] Sodium molar conc 134 136-144 mmol/L Low 05-08-2018 C [facility] ([id number]) Comment: Performed By: #### CMP ####C [facility] [address] [place], [place] [phone] Urea nitrogen mass conc 19 9-24 mg/dL Normal 2017 [facility] ([id number]) Comment: Performed By: #### CMP ####C [facility] [address] [place], [place] [phone]- [phone] cnov on 2018-05-08 CNOV Office Visit Normal 05-08-2018 Ibeth and (ANTOINETTE) --------PARTH MORENO [facility] D ([id number]) 1970 MDat e Time Provider Department05/08/18 9:20 AM NAM BLISS During [facility] your visit today, we recorde d the following information about you: Temperature Pulse Blood pressure 99 (000 00) degrees 100/minute 124/68Ric yazmin Bliss MD 05/08/2018 7:37 PM SignedHISTORY AND PHYSICALJason Nic Moreno1970REFERRING PH YSICIAN: SelfCHIEF COMPLAINT: Post Op (post op Appy)HPI: The patient is a 47 year old male with a comp laint of fever and abdominaldiscomfort. Status post appendectomy.Parth is a patient I am following for acute appendicitis. I performed alaparoscopic appendectomy on April 21, 2018. The patient's appendix demonstratedacute appendicitis with perforation. The patient did well post operatively andwas disc harged to home on post operative day 2.The patient currently notes no complaints. his appetite has been good. hedenies fever, chills or abdominal pain. he does note some mild incisionaldiscomfort.He was doing well but now notes fever to 101.5 and right-sided abdominaldiscomfort. He has had a decrease in the good appetite. He is moving hisbowels.Given his above symptoms. We obtained an urgent CT scan and laboratorystudies. His white blood cell count was 11.5. CT scan was obtained, however,which does show a abscess approximately 5 cm of the base of the appendixconsistent with a po st appendectomy abscess.I spoke with Dr. Johnson who felt it was likely drainable.No past medical hi story on file.No past surgical history on file.Laparoscopic appendectomy-April 21, 2018-ap pendix was perforated the time ofsurgeryCurrent Outpatient Prescriptions:iv contrast (w ill be provided with radiology test) CT ABD/PEL -Inject,intravenously, once for 1 dose.No IV access , insert saline lock prior to thebeginning of sedation, infusion, injection of imaging exam. D iscontinue salinelock post exam. If Pt. has a central line or IVAD, may access foradministration acc ording to line specific nursing protocol. Once exam iscomplete flush line and de-access according to l ine specific nursing protocolin the CT contrast administration guidelines link.enteric contrast (will be provided with radiology test) For CT ABD/PEL W IVCONRoutine order Administer, As Directed One Time Only, via Oral, Rectal, bothOral and Rectal, Enteric Tube, Stoma or Indwelling Catheter, Enteric Contrastas designated per enteric contrast guidelinesNo current facility-administered medica tions for this visit.ALLERGIES: Patient has no known allergies.PERSONAL HISTORY: Social History Aileen patrick status: Single Spouse name: Years of education: Number of children:Social History Main Topics Drug use: UnknownFAMILY HISTORY: No family history on file.REVIEW OF SYMPTOMS: The review of s ystems data was entered by the nurse and reviewed by meThere are no exam notes on file for this visit .PHYSICAL EXAMINATION:General: The patient is 47 year old male, well nourished, well hydrated in noacute distress. The patient is oriented to time, place, and person.VITALS: Blood pressur e 124/68, pulse 100, temperature 37.2 ?C (99 ?F),temperature source Temporal Artery.HEENT: Karen l cephalic, ataumatic, pupils are equally round, sclera areanicteric, mucous membranes are moist, oropharynx is clear. Neck has nomasses, asymmetry or lymphadenopathy. Thyroid is unremarkable.Resp iratory: Clear to auscultation and percussion. Normal respiratoryexcursion and pattern.Cardiac: Examina tion is regular rate and rhythm.Abdominal exam: Soft,tender in the right lower quadrant without perit onealsigns, with no palpable masses. No hepatosplenomegaly. No palpable hernias.Rectal exam: exam de ferredExtremities: no clubbing, cyanosis or edema. No adenopathy.Other:LABORATORY VALUES: As NotedRADIOLOGIC STUDIES: As NotedAssessmentIMPRESSION: Post appendiceal abscess-delayedP ANDREA: The patient will be admitted to [facility]. Urgentcoags will be obtained . We'll plan for CT-guided drainage of the abscess andrestart antibiotics.Diagnoses: (K35. 3) Acute appendicitis with localized peritonitis (primaryencounter diagnosis)(R10.31) Right low er quadrant abdominal painThis note was partially generated using Easy Tempo voice recognition system, an dthere may be some incorrect words, spellings, and punctuation that were notnoted in checking the not e before saving. Nam Bliss, ABIMAELeferrjoann Provider: SELF [ 200]Allergies As of Date: 05/08/2018(No Known Allergies)Date Reviewed: 05/08/2018Reviewed by: Jerri Bliss - Fully AssessedReason for Visit: Post Op [174] Cmt: post op AppyPrimary Visit Diagnosis: Acute appendicitis with localized peritonitis [K35.3] Other Visit Diagnosis:Right lower quadra nt abdominal pain [R10.31]Order(s):COMP METABOLIC PANEL [SQCMP] Order #: [id number] FUTURE CT ABD/PEL W IVCON [[id number]] Order #: [id number]. #:[id number] iv contrast (will be provided with radiology test)CT ABD/PEL -Inject, intravenously, once for 1 do se.No IV access, insert saline lock prior to the beginning of sedation, infusion, injection of imagi ng exam. Discontinue saline lock post exam. If Pt. has a central line or IVAD, may access for adminis tration according to line specific nursing protocol. Once exam is complete flush line and de-access acc ording to line specific nursing protocol in the CT contrast administration guidelines link.Disp: 1 Each Rfl: 0 enteric contrast (will be provided with radiology test)For CT ABD/PEL W IVCON Routine orde r Administer, As Directed One Time Only, via Oral, Rectal, both Oral and Rectal, Enteric Tube, Stoma or Indwelling Catheter, Enteric Contrast as designated per enteric contrast guidelinesDisp: 1 E achRfl: 0 IVA CBC [SQWCBC] Order #: [id number] FUTUREPrescriptions as of 05/08/2018 Sig: IV CONTRA ST (RADIOLOGY PROCED* CT ABD/PEL -Inject, intraveno* ENTERIC CONTRAST (RADIOLOGY P* For CT ABD/PEL W IVCON Routin*Problem List As Of Date: 05/08/2018(None)Prescriptions ordered this encounter Disp Refills Start End IV CONTRAST (RADIOLOGY PROCEDURE) 1 Ea* 0 05/08/2018 05/09/2018 Class: In Office Sig: CT ABD/PEL -Inject, intravenously, once for 1 dose.No IV access, insert saline lock prior to the beginning of sedation, infusion, injection of imaging exam. Discontinue saline lock post exam. If Pt. has a central line or IVAD, may access for administration according to line specific n ursing protocol. Once exam is complete flush line and de-access according to line specific nursing pro tocol in the CT contrast administration guidelines link. ENTERIC CONTRAST (RADIOLOGY PROCEDUR* 1 Ea* 0 05/08/2018 05/09/2018 Class: In Office Sig: For CT ABD/PEL W IVCON Routine order Administer, As Directed One Time Only, via Oral, Rectal, both Oral and Rectal, Enteric Tube, Stoma or Indwelling Ca theter, Enteric Contrast as designated per enteric contrast guidelinesEncounter Number: [id number] Status:Closed by NAM BLISS MD on 05/08/18 progress on 2018-04 Protein HNO ID: [id number]: Nam robertson 05-02-2018 [facility] GuttmanService: (none)Author Type: Clinic PhysicianType: Progress NotesFiled: 05/02/2018 [place] 1:40 PMNote Text:FOLLOW UP VISIT - ([id number]) APPENDICITISNAME: [facility] NO[facility] [id number] OF SERVICE: 05/01/2018DOB: 1970REFERRING PHYSICIAN: No primary care provider on file.Parth is a patient I am following for acute appendicitis. I performed alaparoscopic appendectomy on April 21, 2018. The patient's appendixdemonstrated acute appendicitis with perforation. The patient did wellpost operatively and was discharged to home on post operative day 2.The patient currently notes no complaints. his appetite has been good.he denies fever, chills or abdominal pain. he does note some mildincisional discomfort. VITALS: There were no vitals taken for this visit.On examination, the abdomen is benign. The incisions are healing wellwithout signs of infection or inflammation. There is no right lowerquadrant tenderness.AssessmentIMPRESSION: status post laparoscopic appendectomy for acute appendicitisPLAN: If the patient notes any problems or signs of wound infections, thepatient should contact me immediately. he may return to his regularactivities as tolerated.Diagnoses: (K35.3) Acute appendicitis with localized peritonitis (primaryencounter diagnosis) Return to Clinic: The patient is instructed to follow-up with me asneeded. MD modesta Montezov on 2018-05-01 AMRIT Office Visit Normal 05-01-2018 Ibeth and (ANTOINETTE) --------[facility] ([id number]) 1970 MDat e Time Provider Department05/01/18 3:00 PM NAM BLISS During [place] your visit today, we recorde d the following information about you:Nam Bliss MD 05/02/2018 1:40 ( [id number]) PM SignedFOLLOW UP VISIT - A PPENDICITISNAME: Parth Cornell NO.: [id number] OF SERVICE: 05/01/2018DOB: 1970[facility] PHYSICIAN: No primary care provider on file.Parth is a patient I am following for acute appendic itis. I performed alaparoscopic appendectomy on April 21, 2018. The patient's appendix demonstra tedacute appendicitis with perforation. The patient did well post operatively andwas discharge d to home on post operative day 2.The patient currently notes no complaints. his appetite has been good. hedenies fever, chills or abdominal pain. he does note some mild incisionaldiscomfort. V ITALS: There were no vitals taken for this visit.On examination, the abdomen is benign. The incis ions are healing well withoutsigns of infection or inflammation. There is no right lower quadranttende rness.AssessmentIMPRESSION: status post laparoscopic appendectomy for acute appendicitisPLAN: If t he patient notes any problems or signs of wound infections, thepatient should contact me immediatel y. he may return to his regular activitiesas tolerated.Diagnoses: (K35.3) Acute appendicitis with loca lized peritonitis (primaryencounter diagnosis) Return to Clinic: The patient is instructed to fol low-up with me as needed. Nam Bliss MDReferring Provider: SELF [ 200]Allergies As of Date: 05/01/2018(No Known Allergies)Date Reviewed: 05/01/2018Reviewed by: Jerri Bliss - Fully AssessedReason for Visit: Post Op [174] Cmt: Post op AppendixPrimary Visit Diagno sis:Acute appendicitis with localized peritonitis [K35.3]Problem List As Of Date: 05/01/2018(None)Enc ounter Number: [id number] Status:Closed by NAM BLISS MD on 05/02/18 progress on 2018-04 Protein mass HNO ID: [id number]: Normal 0 04-26-2018 [facility] Nam Medeiroservice: [place] (none)Author Type: ( [id number]) PhysicianType: Progress NotesFiled: 04/26/2018 12:11 PMNote Text:OPERATIVE NOTATION FOR [facility] SURGICAL PROCEDURE.April 21, 2018Parth Moreno 1970 [id number] malePROCEDURE: laparoscopic appendectomy - [id number]: Wellington Bliss M.D. FACS CREDIT CARD SPECIALIST: NoneDEPT: WNey PROVIDER: [id number]=PavhsfvNam Bliss MD POS: [id number]=KDZEWQWOAYRNAYAVGY: (K35.3) Acute appendicitis with localized peritonitis (primaryencounter diagnosis)ASA CLASS: 2 - mildFINDINGS: perforatedCOMPLICATIONS: NonePMHx - No past medical history on file.COMORBIDITIES - Chronic Drug Abuse and Smoking/TobaccoPost Op Occurrences - NoneWound Classification - ContaminatedOperative note dictated in the [facility] dictationsystem.Nam Bliss MD cnop on 2018-04-21 Protein Operative Note (Enc) Normal 8 Higgins mass (GENSWS) --------Progress Clinic conc Notes:Nam Bliss MD 04/26/2018 12:11 PM SignedOPERATIVE NOTATION FOR [facility] SURGICAL PROCEDURE. April 21, 2018Parth Moreno 1970 [id number] malePROCEDURE: ([id number]) laparoscopic appendectomy - [id number]: Wellington Bliss M.D. FACS CREDIT CARD SPECIALIST: NoneDEPT: NATANAEL PROVIDER: Z72=CgmopfyNam scott MD POS:5O3=AUQWDRCPAHDNBVXLLQ: (K35.3) Acute appendicitis with localized peritonitis (primaryencounter diagnosis)ASA CLASS: 2 - mildFINDINGS: perforatedCOMPLICATIONS: Non ePMHx - No past medical history on file.COMORBIDITIES - Chronic Drug Abuse and Smoking/TobaccoPos t Op Occurrences - NoneWound Classification - ContaminatedOperative note dictated in the [facility] dictation system.Nam Bliss MDEncounter Status:Closed by NAM BLISS MD on 04/26/18[facility] nter Number: [id number] Encounters Date Type Reason Provider Location 05-13-2018 - Patient encounter NAM BLISS [facility] 05-14-2018 NAM BLISS [place] ([id number]) 05-08-2018 - Patient encounter NAM BLISS [facility] 05-08-2018 [place] ([phone]) 05-08-2018 - Patient encounter NAM BLISS [facility] 05-09-2018 [place] (0000 0) 05-01-2018 - Patient encounter NAM BLISS [facility] 05-02-2018 [place] (0000 0) Summary Purpose Family History No Family History Records Found Advance Directives No Advanced Directives Records Found Additional Source Comments FOR RECORDS PERTAINING TO PATIENTS WHO ARE OR HAVE BEEN ENROLLED IN A CHEMICAL DEPENDENCY/SUBSTANCE ABUSE PROGRAM, SOME INFORMATION MAY BE OMITTED. This clinical summary was aggregated from multiple sources. Caution should be exercised in using it in the provision of clinical care. This summary normalizes information from multiple sources, and as a consequence, information in this document may materially changethe coding, format and clinical context of patient data. In addition, data may be omittedin some cases. CLINICAL DECISIONS SHOULD BE BASED ON THE PRIMARY CLINICAL RECORDS. [facility] provides no warranty or guarantee of the accuracy or completeness of information in this document. UNRECOGNIZED CONTENT PROVIDED BELOW FOR UNRECOGNIZED SECTION No Status Records Found UNRECOGNIZED CONTENT PROVIDED BELOW FOR UNRECOGNIZED SECTION INFORMATION SOURCE DATE CREATED AUTHOR AUTHOR'S ORGANIZATIO N 05/14/2018 [facility] jessica
== END ==
PROVIDERS: Referring Provider Internal Medicine Infectious Disease; Visit Provider Internal Medicine Infectious Disease
DX: B20 Human immunodeficiency virus [HIV] disease (principal)
CPT/HCPCS: 36415; 80048; 80076; 85025; 86360; 87536

== ENCOUNTER → 2020-06-21 12:16 | Outpatient (CLI) | payer OTHER, SELFPAY ==
[2020-06-21 13:46] LABS: Hematocrit 45.3 % (40-54); Hemoglobin 15.8 g/dL (13.0-16.5); Mean Corp Hgb Conc 34.9 g/dL (32-36); Mean Corpuscular Hgb 29.7 pg (27.0-32.0); Mean Corpuscular Volume 85.2 fL (80-94); Mean Platelet Vol. 9.4 fl (6.2-12.0); Platelet Count 268 K/mm3 (150-450); RBC Distribution Width CV 12.6 % (11.6-14.6); RBC Distribution Width SD 38.5 fl (35.1-43.9); Red Blood Count 5.32 M/mm3 (4.6-6.2); White Blood Count 4.4 K/mm3 (4.4-11.0)
[2020-06-21 14:18] LABS: AST(SGOT) 20 U/L (15-37); Alanine Aminotransfer ALT/SGPT 35 U/L (16-61); Alkaline Phosphatase 49 U/L (45-117); Anion Gap 3 (5-15); BUN 12 mg/dL (7-18); BUN/Creat Ratio 10.1 RATIO (10-20); Bilirubin, Direct 0.18 mg/dL (0.00-0.30); Calcium,Total 8.7 mg/dL (8.5-10.1); Chloride 107 mmol/L (98-107); Creatinine, Serum 1.19 mg/dL (0.70-1.30); EST Glomerular Filtration Rate 69 mL/min (>60); Est Glom Filt Rate - Afr Amer 84 mL/min (>60); Globulin 3.9 g/dL (2.2-4.2); Glucose 99 mg/dL (74-106); Potassium 4.3 mmol/L (3.5-5.1); Protein, Total 7.9 g/dL (6.4-8.2); Sodium Level 139 mmol/L (136-145)
[2020-06-21 14:53] LABS: Hepatitis B Surface Antigen Non-Reactive (Nonreactive); Hepatitis C Antibody Non-Reactive (Nonreactive)
[2020-06-22 20:07] LABS: Absolute CD4 Helper 628 /uL (359-1519); Basophils (Absolute) 0.1 x10E3/uL (0.0-0.2); Eosinophils 1 % (Not Estab.); Eosinophils (Absolute) 0.1 x10E3/uL (0.0-0.4); Hematocrit 46.3 % (37.5-51.0); Hemoglobin 15.9 g/dL (13.0-17.7); Immature Granulocytes 0 % (Not Estab.); Immature Granulocytes Absolute 0 x10E3/uL (0.0-0.1); Lymphs 40 % (Not Estab.); Lymphs (Absolute) 1.8 x10E3/uL (0.7-3.1); MCH 29.3 pg (26.6-33.0); MCHC 34.3 g/dL (31.5-35.7); MCV 85 fL (79-97); Monocytes 6 % (Not Estab.); Monocytes (Absolute) 0.3 x10E3/uL (0.1-0.9); Neutrophils 52 % (Not Estab.); Neutrophils (Absolute) 2.2 x10E3/uL (1.4-7.0); Percent % CD4 Pos. Lymph. 34.9 % (30.8-58.5); Platelets 273 x10E3/uL (150-450); RBC Count 5.43 x10E6/uL (4.14-5.80); RDW 13.7 % (11.6-15.4); WBC Count 4.4 x10E3/uL (3.4-10.8)
[2020-06-22 20:37] LABS: Hepatitis B Core Ab Total Negative (Negative)
[2020-06-23 22:03] LABS: HIV-1 RNA by PCR, Quant. < 20 copies/mL (.)
== END ==
PROVIDERS: Referring Provider Internal Medicine Infectious Disease; Visit Provider Internal Medicine Infectious Disease
DX: B20 Human immunodeficiency virus [HIV] disease (principal)
CPT/HCPCS: 36415; 80048; 80076; 85027; 86361; 86704; 86803; 87340; 87536

== ENCOUNTER 2020-07-28 18:19 | Emergency (ER) | payer OTHER, SELFPAY ==
[2020-07-28 18:19] VITALS: BP 138/88; PULSE 83; RESP 18; TEMP 36.3; O2SAT 100; BMI 30.1
[2020-07-28] MEDS: Diphth,Pertuss(Acell),Tet Vac 0.5 ML Vial IM (19:32)
[2020-07-28] MEDS: Tetracaine 0.5% Ophthalmic Bottle 1 DRP RIGHT EYE (19:32)
[2020-07-28] MEDS: Erythromycin Base 1 OPTH.TUBE 1 APPLIC RIGHT EYE (19:32)
--- NOTE | 2020-07-28 19:43 | ED.DCSUM_ITS ---
History of Present Illness Chief Complaint: Eye Problem Informant: Patient Onset: Yesterday Context: Gradual Onset Timing: Continuous Current Severity: Moderate Maximum Severity: Moderate Narrative: Patient is a 49-year-old male with history of HIV the presents to the emergency department with eye foreign body. The patient states that he was doing some grinding yesterday. He states he was not wearing safety goggles but was wearing his glasses. He states a small piece of metal got behind his eye. He states that today, the eye felt irritated. He noticed that there was something in it. Try to get it out but did not. He went to urgent care and was sent here for further evaluation. Prior similar symptoms: No Recent Illness/Hospitalization: No Past Medical History - Allergies and Home Meds Allergies/Adverse Reactions: Allergies No Known Allergies Allergy (Verified 07/28/20 18:22) Primary Care Physician: Yesica Evans MD [STAFF PHYSICIAN] - 1 Day (Please be at the office at 815 tomorrow morning) Prior records reviewed: Yes Past Medical History: - - HIV Surgical History: no surgical history Smoking Status: Never smoker Review of Systems General: Denies: Chills, Fever, Sweats Eyes: Denies: Visual changes - bilaterally, Diplopia ENT: Denies: Rhinorrhea, Sore throat Cardiovascular: Denies: Chest pain, Palpitations Respiratory: Denies: Dyspnea, Cough, Dyspnea on exertion Gastrointestinal: Denies: Abdominal pain, Nausea, Vomiting, Diarrhea, Melena, Hematochezia Genitourinary: Denies: Dysuria, Hematuria, Frequency Musculoskeletal: Denies: Back pain, Extremity Pain Skin: Denies: Rash, Wounds Neurological: Denies: Headache, Weakness, Numbness Physical Exam Vital Signs/Narrative: Vital Signs Temp Pulse Resp BP Pulse Ox 07/28/20 18:19 97.4 F L 83 18 138/88 H 100 Inital Vital Signs reviewed: Yes General: Well nourished, Well developed, No Acute Distress Head: Normocephalic, Atraumatic Eyes: Perrl, EOMI, - - The patient does have a small round 2 mm rust ring at the 7 o'clock position. There is small superficial abrasion. There is no Alex sign. ENT: Moist mucous membranes, No rhinorrhea Neck: Supple, Nontender Cardiovascular: Regular rate, Regular rhythm, No murmurs Respiratory: No distress, CTA bilaterally, Chest nontender Abdomen: Soft, Nontender, Nondistended, Normal bowel sounds Back: Nontender, Normal Inspection Extremities: Nontender, No edema Skin: Normal color, No rash Neurological: Alert, Oriented x3, Cranial nerves II-XII grossly intact, Normal Strength, Normal Sensation Psychological: Normal affect, Normal Mood Diagnostic/Tx/Re-eval - Medical Decision Making The patient presents with retained rust ring. There is small corneal abrasion. Tetracaine was instilled in the eye. His tetanus was updated. I did use the bur to try and remove the ring. With gentle burring, the ring was still rather deep. I was hesitant to go any deeper due to concern for puncture. I did discuss his case with Dr. Evans, on-call for ophthalmology. She agreed with plan for topical antibiotics. She will see the patient in the office for Pineda tomorrow morning for formal rust ring removal. Impression 1. Right eye rust ring ED Disposition - Plan for ED Patient: Instructions: ED Corneal Abrasion Prescriptions: Hydrocodone Bitart/Apap 5-325 [[place] 5MG-325MG] 1 tab PO Q6H PRN PRN 3 Days #10 tab PRN Reason: Pain Prescription Printed Referrals: Yesica Evans MD [STAFF PHYSICIAN] - 1 Day (Please be at the office at 815 t omorrow morning)
== END 2020-07-28 20:13 | disposition home or self-care (01) ==
PROVIDERS: Emergency Provider Emergency Medicine
DX: T15.00XA Foreign body in cornea, unspecified eye, initial encounter (principal); Z21 Asymptomatic human immunodeficiency virus [HIV] infection status; X58.XXXA Exposure to other specified factors, initial encounter
CPT/HCPCS: 90471; 90715; 99282; 99284

== ENCOUNTER → 2020-09-19 12:00 | Outpatient (CLI) | payer OTHER, SELFPAY ==
[2020-09-19 13:09] LABS: Hematocrit 45.2 % (40-54); Hemoglobin 15.2 g/dL (13.0-16.5); Mean Corp Hgb Conc 33.6 g/dL (32-36); Mean Corpuscular Hgb 29.3 pg (27.0-32.0); Mean Corpuscular Volume 87.1 fL (80-94); Mean Platelet Vol. 9.2 fl (6.2-12.0); Platelet Count 277 K/mm3 (150-450); RBC Distribution Width CV 12.6 % (11.6-14.6); RBC Distribution Width SD 39.8 fl (35.1-43.9); Red Blood Count 5.19 M/mm3 (4.6-6.2); White Blood Count 4.3 K/mm3 (4.4-11.0)
[2020-09-19 13:56] LABS: Anion Gap 4 (5-15); BUN 19 mg/dL (7-18); BUN/Creat Ratio 17.1 RATIO (10-20); Calcium,Total 9.2 mg/dL (8.5-10.1); Chloride 107 mmol/L (98-107); Creatinine, Serum 1.11 mg/dL (0.70-1.30); EST Glomerular Filtration Rate 75 mL/min (>60); Est Glom Filt Rate - Afr Amer 91 mL/min (>60); Glucose 101 mg/dL (74-106); Sodium Level 138 mmol/L (136-145)
[2020-09-19 16:36] LABS: Chlamydia Trachomatis by PCR Negative (Negative); Neisserai gonorrhoeae by PCR Negative (Negative); Probe Check PASS; Sample Adequacy Control PASS; Specimen Processing Control PASS
[2020-09-21 15:31] LABS: HIV-1 RNA by PCR, Quant. < 20 copies/mL (.)
[2020-09-22 02:34] LABS: Rapid Plasmin Reagin (RPR) NONREACTIVE (NONREACTIVE)
== END ==
PROVIDERS: Referring Provider Internal Medicine Infectious Disease; Visit Provider Internal Medicine Infectious Disease
DX: B20 Human immunodeficiency virus [HIV] disease (principal)
CPT/HCPCS: 36415; 80048; 85027; 86361; 86480; 86592; 87491; 87536; 87591

== ENCOUNTER 2020-09-30 12:15 | Emergency (ER) | payer OTHER, SELFPAY ==
[2020-09-30 12:17] VITALS: BP 146/84; PULSE 91; RESP 18; TEMP 36.4; O2SAT 100; BMI 28.4
--- NOTE | 2020-09-30 13:07 | ED.VISSUMM ---
- ER Visit Summary Date of Service: 09/30/20 Chief Complaint: Redness to left hand History of Present Illness: The patient is a 50 M who presents with redness to his left hand that is been getting worse over the past 3 days. Patient thinks he was bitten by an insect. Patient describes his pain is dull and aching. Patient states it is localized to the dorsum of his left hand. Patient admits to some general myalgias and weakness. Patient also admits to a headache. Patient denies any fevers or chills. Patient does admit to some night sweats. Patient denies any nausea or vomiting. Patient denies any chest pain or shortness of breath. Patient also states that a couple weeks ago he had an episode where he had a high fevers and body aches. Patient states his last approximately 48 hours then resolved. Patient is concerned that this could have been Covid. Physical Examination: Vital signs are stable. Patient is afebrile. Patient is in no acute distress. Oral mucosa is pink and moist. Neck is supple. Trachea is midline. There is no JVD noted. Heart was regular rate and rhythm. Lungs are clear and equal bilaterally. Abdomen is soft. Bowel sounds are normal. There is no tenderness. There is no rebound or guarding noted. Skin is warm dry. There is some erythema and warmth over the dorsal aspect of the left hand. There is no abscess formation. There is no discharge or drainage. There is no erythematous streaking. There is no axillary adenopathy noted. Cranial nerves II through XII are intact. There are no focal motor or sensory deficits noted. Extremities are intact. There is no calf tenderness or edema. Test Results: CBC and comprehensive metabolic profile were obtained and were within normal limits. COVID-19 rapid antigen test was obtained and was negative. Blood cultures were obtained and are pending. Emergency Department Course and Treatment: Patient was given a dose of Ancef here. Patient was given a prescription for Keflex. Patient was instructed to follow-up with a primary care physician in 5 to 7 days. Patient understood and was agreeable with the plan. All questions were answered. Disposition: Discharge home Impression: Cellulitis left hand This note was generated with [employer] dictation software. It may contain incorrect words, spelling, and punctuation that were not noted in review of the chart prior to signing ED Disposition - Plan for ED Patient: Disposition: Home or Assisted Living Diagnosis: Cellulitis of left hand Instructions: ED Cellulitis Prescriptions: Cephalexin [Keflex] 500 mg PO Q6 #40 cap Prescription Printed Referrals: Gabbie Kaminski MD [STAFF PHYSICIAN] - 5-7 Days
[2020-09-30] MEDS: 0.9% Normal Saline 1,000 ML 1000 ML IV (13:32)
[2020-09-30 13:45] LABS: Absolute Lymphocyte Count 1.33 X10^3/uL (0.83-4.51); Absolute Neutrophil Count 7.3 X10^3/uL (2.0-7.7); Basophil# 0.05 X10^3/uL; Basophil% 0.5 % (0-1); Eosinophil# 0.02 X10^3/uL; Eosinophils% 0.2 % (0-5); Hematocrit 47.4 % (40-54); Hemoglobin 16.2 g/dL (13.0-16.5); Lymphocyte # 1.33 X10^3/ul (4.0); Lymphocyte % 14.2 % (19-41); Mean Corp Hgb Conc 34.2 g/dL (32-36); Mean Corpuscular Hgb 29.3 pg (27.0-32.0); Mean Corpuscular Volume 85.7 fL (80-94); Monocyte# 0.65 X10^3/uL; Monocyte% 6.9 % (0-10); NRBC Flagged by Analyzer 0 % (0-5); Neutrophil # 7.29 X10^3/uL (2.7-7.7); Neutrophil % 77.9 % (47-70); Platelet Count 341 K/mm3 (150-450); RBC Distribution Width CV 12.3 % (11.6-14.6); RBC Distribution Width SD 38.7 fl (35.1-43.9); Red Blood Count 5.53 M/mm3 (4.6-6.2); White Blood Count 9.4 K/mm3 (4.4-11.0)
[2020-09-30 13:57] LABS: ALB/GLOB Ratio 0.8 RATIO (0.9-2.4); AST(SGOT) 7 U/L (15-37); Alanine Aminotransfer ALT/SGPT 26 U/L (16-61); Albumin, Serum 3.9 g/dL (3.2-5.0); Alkaline Phosphatase 66 U/L (45-117); Anion Gap 5 (5-15); BUN 15 mg/dL (7-18); BUN/Creat Ratio 12.9 RATIO (10-20); Calcium,Total 9.4 mg/dL (8.5-10.1); Chloride 104 mmol/L (98-107); Creatinine, Serum 1.16 mg/dL (0.70-1.30); EST Glomerular Filtration Rate 71 mL/min (>60); Est Glom Filt Rate - Afr Amer 86 mL/min (>60); Estimated Creatinine Clearance 84.55 ml/min; Globulin 5.1 g/dL (2.2-4.2); Glucose 97 mg/dL (74-106); Potassium 3.9 mmol/L (3.5-5.1); Sodium Level 137 mmol/L (136-145)
[2020-09-30] MEDS: Cefazolin 1 GM/50 ML BAG IV (14:08)
[2020-09-30 14:34] VITALS: O2SAT 96
[2020-09-30 15:02] VITALS: BP 141/83; PULSE 75; RESP 14; O2SAT 99
== END 2020-09-30 15:07 | disposition home or self-care (01) ==
PROVIDERS: Emergency Provider Emergency Medicine
DX: L03.114 Cellulitis of left upper limb (principal); B20 Human immunodeficiency virus [HIV] disease
CPT/HCPCS: 80053; 85025; 87040; 87426; 96365; 99284

== ENCOUNTER 2020-10-23 13:46 | Emergency (ER) | payer OTHER, SELFPAY ==
[2020-10-11 15:04] VITALS: BMI 29.8
[2020-10-23 13:47] VITALS: BP 140/54; PULSE 103; RESP 20; TEMP 36.1; O2SAT 99; BMI 29.8
[2020-10-23 13:56] VITALS: BP 140/54; PULSE 103; RESP 20; TEMP 36.1; O2SAT 99
--- NOTE | 2020-10-23 14:19 | ED.DCSUM_ITS ---
- ER Visit Summary Date of Service: 10/23/20 Chief Complaint: Redness and swelling History of Present Illness: The patient is a 50 M who presents with redness and swelling to his right hand that has been getting worse over the past 4 days. Patient was seen here recently with redness and swelling to his left hand. Patient was diagnosed with cellulitis at that time. Patient completed a course of antibiotics and his redness and swelling has improved. Patient states that over the past 4 days he noted redness and swelling to his right hand. Patient denies any trauma or injury. Patient also had noticed some redness and swelling to the medial aspect of his left foot and an area on the medial aspect of his left thigh. Patient states he attempted to open the area on his left foot with a needle. Patient was unable to get any drainage out from that. Patient denies any fevers or chills. Patient is HIV positive. Patient last CD4 counts and viral loads were normal. Physical Examination: Vital signs are stable. Patient is afebrile. Patient is in no acute distress. Oral mucosa is pink and moist. Neck is supple. Trachea is midline. There is no JVD. Heart was regular rate and rhythm. Lungs are clear and equal bilaterally. Skin is warm and dry. There is erythema and mild warmth over the dorsal aspect of the right hand. There is full range of motion. There is no abscess formation. There is no discharge or drainage. There is also tenderness and erythema over the medial aspect of the left foot. There is a darkened firm area noted in the center of this. There is no fluctuance. There is no discharge or drainage. There is also some mild tenderness and er ythema over the medial aspect of the left thigh. There is no fluctuance or evidence of any abscess. There is full range of motion of the upper and lower extremities bilaterally. Cranial nerves II through XII are intact. There are no focal motor or sensory deficits noted. Test Results: CBC and comprehensive metabolic profile were obtained and were within normal limits. Lactate was normal. Emergency Department Course and Treatment: Patient was given a dose of Ancef here. Patient was given a prescription for Keflex. Patient was instructed to follow-up with his primary care physician and infectious disease physician in 5 to 7 days. Patient understood and was agreeable with the plan. All questions were answered. Disposition: Discharge home Impression: 1. Cellulitis This note was generated with Dragon dictation software. It may contain incorrect words, spelling, and punctuation that were not noted in review of the chart prior to signing ED Disposition - Plan for ED Patient: Disposition: Home or Assisted Living Diagnosis: Cellulitis Instructions: ED Cellulitis Prescriptions: Cephalexin [Keflex] 500 mg PO Q6 #40 cap Transmission Status: Pending to [facility]/pharmacy #[id number] Referrals: Norah Dent MD [Primary Care Provider] - 5-7 Days Joseph Boles MD [STAFF PHYSICIAN] - 5-7 Days
[2020-10-23 14:44] LABS: Absolute Lymphocyte Count 1.78 X10^3/uL (0.83-4.51); Absolute Neutrophil Count 5.5 X10^3/uL (2.0-7.7); Basophil# 0.04 X10^3/uL; Basophil% 0.5 % (0-1); Eosinophil# 0.07 X10^3/uL; Eosinophils% 0.9 % (0-5); Hematocrit 44.2 % (40-54); Hemoglobin 15.4 g/dL (13.0-16.5); Lymphocyte # 1.78 X10^3/ul (4.0); Lymphocyte % 22.6 % (19-41); Mean Corp Hgb Conc 34.8 g/dL (32-36); Mean Corpuscular Hgb 29.4 pg (27.0-32.0); Mean Corpuscular Volume 84.5 fL (80-94); Mean Platelet Vol. 8.7 fl (6.2-12.0); Monocyte# 0.52 X10^3/uL; Monocyte% 6.6 % (0-10); NRBC Flagged by Analyzer 0 % (0-5); Neutrophil # 5.46 X10^3/uL (2.7-7.7); Neutrophil % 69.1 % (47-70); Platelet Count 262 K/mm3 (150-450); RBC Distribution Width CV 12.6 % (11.6-14.6); RBC Distribution Width SD 38.3 fl (35.1-43.9); Red Blood Count 5.23 M/mm3 (4.6-6.2); White Blood Count 7.9 K/mm3 (4.4-11.0)
[2020-10-23 14:50] VITALS: BP 140/54; PULSE 103; RESP 20; TEMP 36.1; O2SAT 99
[2020-10-23] MEDS: Cefazolin 1 GM/50 ML BAG IV (14:52)
[2020-10-23] MEDS: 0.9% Normal Saline 1,000 ML 1000 ML IV (14:52)
[2020-10-23 15:01] LABS: ALB/GLOB Ratio 0.9 RATIO (0.9-2.4); AST(SGOT) 9 U/L (15-37); Alanine Aminotransfer ALT/SGPT 26 U/L (16-61); Alkaline Phosphatase 65 U/L (45-117); Anion Gap 5 (5-15); BUN 15 mg/dL (7-18); BUN/Creat Ratio 13.5 RATIO (10-20); Calcium,Total 9.2 mg/dL (8.5-10.1); Chloride 106 mmol/L (98-107); Creatinine, Serum 1.11 mg/dL (0.70-1.30); EST Glomerular Filtration Rate 75 mL/min (>60); Est Glom Filt Rate - Afr Amer 91 mL/min (>60); Estimated Creatinine Clearance 88.36 ml/min; Globulin 4.3 g/dL (2.2-4.2); Glucose 104 mg/dL (74-106); Potassium 4.1 mmol/L (3.5-5.1); Protein, Total 8.3 g/dL (6.4-8.2); Sodium Level 138 mmol/L (136-145)
[2020-10-23 16:45] VITALS: BP 139/74; PULSE 69; RESP 18; O2SAT 100
--- NOTE | 2020-10-23 16:46 | ED.RN ---
THIS NURSE REVIEWED D/C INSTRUCTIONS WITH PT. PT VERBALIZED UNDERSTANDING OF INSTRUCTIONS. IV D/C. IV CATHETER INTACT. PT TOLERATED WELL. PT DENIES FURTHER NEEDS OR QUESTIONS AT THIS TIME
== END 2020-10-23 16:47 | disposition home or self-care (01) ==
PROVIDERS: Emergency Provider Emergency Medicine; PCP Internal Medicine
DX: L03.113 Cellulitis of right upper limb (principal); Z21 Asymptomatic human immunodeficiency virus [HIV] infection status
CPT/HCPCS: 80053; 83605; 85025; 96365; 99283; J7030; A4216

== ENCOUNTER → 2021-03-16 11:07 | Outpatient (CLI) | payer OTHER, SELFPAY ==
[2021-03-16 11:38] LABS: Mean Corp Hgb Conc 34.8 g/dL (32-36); Mean Corpuscular Hgb 29.1 pg (27.0-32.0); Mean Corpuscular Volume 83.6 fL (80-94); Mean Platelet Vol. 8.6 fl (6.2-12.0); Platelet Count 286 K/mm3 (150-450); RBC Distribution Width CV 12.6 % (11.6-14.6); RBC Distribution Width SD 38.4 fl (35.1-43.9); White Blood Count 4.4 K/mm3 (4.4-11.0)
[2021-03-16 12:08] LABS: Anion Gap 6 (5-15); BUN 14 mg/dL (7-18); BUN/Creat Ratio 12.5 RATIO (10-20); Calcium,Total 8.5 mg/dL (8.5-10.1); Chloride 104 mmol/L (98-107); Creatinine, Serum 1.12 mg/dL (0.70-1.30); EST Glomerular Filtration Rate 74 mL/min (>60); Est Glom Filt Rate - Afr Amer 89 mL/min (>60); Glucose 109 mg/dL (74-106); PSA,Total - Annual Screen 1.16 ng/mL (0.00-4.00); Potassium 4.3 mmol/L (3.5-5.1); Sodium Level 137 mmol/L (136-145)
[2021-03-17 16:08] LABS: Absolute CD4 Helper 525 /uL (359-1519); Basophils (Absolute) 0.1 x10E3/uL (0.0-0.2); Eosinophils 1 % (Not Estab.); Eosinophils (Absolute) 0.1 x10E3/uL (0.0-0.4); Hematocrit 41.9 % (37.5-51.0); Immature Granulocytes 0 % (Not Estab.); Immature Granulocytes Absolute 0 x10E3/uL (0.0-0.1); Lymphs 34 % (Not Estab.); Lymphs (Absolute) 1.4 x10E3/uL (0.7-3.1); MCH 28.6 pg (26.6-33.0); MCHC 33.4 g/dL (31.5-35.7); MCV 86 fL (79-97); Monocytes 9 % (Not Estab.); Monocytes (Absolute) 0.4 x10E3/uL (0.1-0.9); Neutrophils 55 % (Not Estab.); Neutrophils (Absolute) 2.3 x10E3/uL (1.4-7.0); Percent % CD4 Pos. Lymph. 37.5 % (30.8-58.5); Platelets 351 x10E3/uL (150-450); RDW 13.9 % (11.6-15.4); WBC Count 4.1 x10E3/uL (3.4-10.8)
[2021-03-18 07:35] LABS: HIV-1 RNA by PCR, Quant. 90 copies/mL (.); LOG10 HIV-1 RNA 1.954 (.)
== END ==
PROVIDERS: PCP Internal Medicine; Referring Provider Internal Medicine Infectious Disease; Visit Provider Internal Medicine Infectious Disease
DX: B20 Human immunodeficiency virus [HIV] disease (principal); Z12.5 Encounter for screening for malignant neoplasm of prostate
CPT/HCPCS: 36415; 80048; 84153; 85027; 86361; 87536; G0103

== ENCOUNTER → 2021-06-15 11:28 | Outpatient (CLI) | payer OTHER, SELFPAY ==
[2021-06-15 12:39] LABS: Hematocrit 46.6 % (40-54); Mean Corp Hgb Conc 34.3 g/dL (32-36); Mean Corpuscular Hgb 29.4 pg (27.0-32.0); Mean Corpuscular Volume 85.5 fL (80-94); Mean Platelet Vol. 9.1 fl (6.2-12.0); Platelet Count 274 K/mm3 (150-450); RBC Distribution Width CV 12.2 % (11.6-14.6); RBC Distribution Width SD 38.2 fl (35.1-43.9); Red Blood Count 5.45 M/mm3 (4.6-6.2)
[2021-06-15 13:13] LABS: Anion Gap 6 (5-15); BUN 17 mg/dL (7-18); BUN/Creat Ratio 16.3 RATIO (10-20); Calcium,Total 8.7 mg/dL (8.5-10.1); Chloride 105 mmol/L (98-107); Creatinine, Serum 1.04 mg/dL (0.70-1.30); EST Glomerular Filtration Rate 80 mL/min (>60); Est Glom Filt Rate - Afr Amer 97 mL/min (>60); Glucose 108 mg/dL (74-106); Potassium 4.3 mmol/L (3.5-5.1); Sodium Level 135 mmol/L (136-145)
[2021-06-16 16:08] LABS: Absolute CD4 Helper 554 /uL (359-1519); Basophils (Absolute) 0 x10E3/uL (0.0-0.2); Eosinophils 1 % (Not Estab.); Eosinophils (Absolute) 0 x10E3/uL (0.0-0.4); Hematocrit 46.5 % (37.5-51.0); Hemoglobin 15.9 g/dL (13.0-17.7); Immature Granulocytes 0 % (Not Estab.); Lymphs 31 % (Not Estab.); Lymphs (Absolute) 1.5 x10E3/uL (0.7-3.1); MCH 29.6 pg (26.6-33.0); MCHC 34.2 g/dL (31.5-35.7); MCV 87 fL (79-97); Monocytes 7 % (Not Estab.); Monocytes (Absolute) 0.4 x10E3/uL (0.1-0.9); Neutrophils 60 % (Not Estab.); Percent % CD4 Pos. Lymph. 36.9 % (30.8-58.5); Platelets 266 x10E3/uL (150-450); RBC Count 5.37 x10E6/uL (4.14-5.80); RDW 13.2 % (11.6-15.4); WBC Count 4.9 x10E3/uL (3.4-10.8)
[2021-06-16 17:28] LABS: Immature Granulocytes Absolute 0 x10E3/uL (0.0-0.1)
[2021-06-17 12:51] LABS: HIV-1 RNA by PCR, Quant. 70 copies/mL (.); LOG10 HIV-1 RNA 1.845 (.)
== END ==
PROVIDERS: PCP Internal Medicine; Visit Provider Internal Medicine Infectious Disease
DX: B20 Human immunodeficiency virus [HIV] disease (principal)
CPT/HCPCS: 36415; 80048; 85027; 86361; 87536

== ENCOUNTER 2021-12-18 11:41 | Outpatient (CLI) | payer OTHER, SELFPAY ==
[2021-12-18 12:38] LABS: Absolute Lymphocyte Count 1.59 X10^3/uL (0.83-4.51); Absolute Neutrophil Count 2.1 X10^3/uL (2.0-7.7); Basophil# 0.04 X10^3/uL; Eosinophil# 0.05 X10^3/uL; Eosinophils% 1.2 % (0-5); Hematocrit 43.9 % (40-54); Lymphocyte # 1.59 X10^3/ul (0.83-4.51); Lymphocyte % 39.1 % (19-41); Mean Corp Hgb Conc 34.2 g/dL (32-36); Mean Corpuscular Hgb 29.4 pg (27.0-32.0); Mean Corpuscular Volume 86.1 fL (80-94); Mean Platelet Vol. 9.1 fl (6.2-12.0); Monocyte% 7.4 % (0-10); NRBC Flagged by Analyzer 0 % (0-5); Neutrophil # 2.08 X10^3/uL (2.7-7.7); Neutrophil % 51.1 % (47-70); Platelet Count 263 K/mm3 (150-450); RBC Distribution Width CV 12.4 % (11.6-14.6); White Blood Count 4.1 K/mm3 (4.4-11.0)
[2021-12-18 13:02] LABS: Hemoglobin A1c 5.6 % (3.8-5.6)
[2021-12-18 13:33] LABS: Vitamin D,25 Hydroxy 21.1 ng/mL
[2021-12-18 13:38] LABS: AST(SGOT) 23 U/L (15-37); Alanine Aminotransfer ALT/SGPT 47 U/L (16-61); Albumin, Serum 3.9 g/dL (3.2-5.0); Alkaline Phosphatase 48 U/L (45-117); Anion Gap 5 (5-15); BUN 16 mg/dL (7-18); BUN/Creat Ratio 15.5 RATIO (10-20); Calcium,Total 8.7 mg/dL (8.5-10.1); Chloride 105 mmol/L (98-107); Cholesterol 201 mg/dL (200); Creatinine, Serum 1.03 mg/dL (0.70-1.30); EST Glomerular Filtration Rate 81 mL/min (>60); Est Glom Filt Rate - Afr Amer 98 mL/min (>60); Globulin 3.9 g/dL (2.2-4.2); Glucose 109 mg/dL (74-106); High Density Lipoprotein 34 mg/dL; Potassium 4.2 mmol/L (3.5-5.1); Protein, Total 7.8 g/dL (6.4-8.2); Sodium Level 136 mmol/L (136-145); Thyroid Stim Hormone (TSH) 1.43 uIU/mL (0.358-3.74); Triglycerides 322 mg/dL; Very Low Density Lipoprotein 64 mg/dL (5-40)
[2021-12-18 14:08] LABS: Hepatitis C Antibody Non-Reactive (Nonreactive); Syphilis Antibodies Non-reactive
[2021-12-19 15:08] LABS: Absolute CD4 Helper 712 /uL (359-1519); Basophils (Absolute) 0 x10E3/uL (0.0-0.2); Eosinophils 1 % (Not Estab.); Eosinophils (Absolute) 0 x10E3/uL (0.0-0.4); Hematocrit 45.5 % (37.5-51.0); Hemoglobin 15.6 g/dL (13.0-17.7); Immature Granulocytes 0 % (Not Estab.); Lymphs 39 % (Not Estab.); Lymphs (Absolute) 1.7 x10E3/uL (0.7-3.1); MCH 29.6 pg (26.6-33.0); MCHC 34.3 g/dL (31.5-35.7); MCV 86 fL (79-97); Monocytes 6 % (Not Estab.); Monocytes (Absolute) 0.3 x10E3/uL (0.1-0.9); Neutrophils 53 % (Not Estab.); Neutrophils (Absolute) 2.2 x10E3/uL (1.4-7.0); Percent % CD4 Pos. Lymph. 41.9 % (30.8-58.5); Platelets 276 x10E3/uL (150-450); RBC Count 5.27 x10E6/uL (4.14-5.80); RDW 13.1 % (11.6-15.4); WBC Count 4.2 x10E3/uL (3.4-10.8)
[2021-12-19 16:23] LABS: Immature Granulocytes Absolute 0 x10E3/uL (0.0-0.1)
[2021-12-20 18:31] LABS: HIV-1 RNA by PCR, Quant. 90 copies/mL (.); LOG10 HIV-1 RNA 1.954 (.)
== END 2021-12-18 23:59 | disposition home or self-care (01) ==
LOC: LAB 11:43
PROVIDERS: Internal Medicine Infectious Disease; PCP Internal Medicine; Referring Provider Internal Medicine; Visit Provider Internal Medicine
DX: E55.9 Vitamin D deficiency, unspecified (principal); B20 Human immunodeficiency virus [HIV] disease; Z13.1 Encounter for screening for diabetes mellitus; Z13.220 Encounter for screening for lipoid disorders
CPT/HCPCS: 36415; 80053; 80061; 82306; 83036; 84443; 85025; 86361; 86780; 86803; 87536

== ENCOUNTER → 2022-06-19 | Outpatient (CLI) | payer OTHER, SELFPAY ==
[2022-06-19 11:09] LABS: Hematocrit 43.6 % (40-54); Hemoglobin 15.5 g/dL (13.0-16.5); Mean Corp Hgb Conc 35.6 g/dL (32-36); Mean Corpuscular Hgb 30.6 pg (27.0-32.0); Mean Corpuscular Volume 86.2 fL (80-94); Mean Platelet Vol. 8.6 fl (6.2-12.0); Platelet Count 258 K/mm3 (150-450); RBC Distribution Width CV 12.4 % (11.6-14.6); RBC Distribution Width SD 39.1 fl (35.1-43.9); Red Blood Count 5.06 M/mm3 (4.6-6.2); White Blood Count 4.2 K/mm3 (4.4-11.0)
[2022-06-19 11:41] LABS: Anion Gap 8 (5-15); BUN 14 mg/dL (7-18); BUN/Creat Ratio 11.7 RATIO (10-20); Chloride 106 mmol/L (98-107); EST Glomerular Filtration Rate 68 mL/min (>60); Est Glom Filt Rate - Afr Amer 82 mL/min (>60); Glucose 164 mg/dL (74-106); Potassium 4.1 mmol/L (3.5-5.1); Sodium Level 138 mmol/L (136-145)
[2022-06-20 14:09] LABS: Absolute CD4 Helper 603 /uL (359-1519); Basophils (Absolute) 0 x10E3/uL (0.0-0.2); Eosinophils 1 % (Not Estab.); Eosinophils (Absolute) 0 x10E3/uL (0.0-0.4); Hematocrit 45.7 % (37.5-51.0); Hemoglobin 15.4 g/dL (13.0-17.7); Immature Granulocytes 0 % (Not Estab.); Immature Granulocytes Absolute 0 x10E3/uL (0.0-0.1); Lymphs 38 % (Not Estab.); Lymphs (Absolute) 1.6 x10E3/uL (0.7-3.1); MCH 29.4 pg (26.6-33.0); MCHC 33.7 g/dL (31.5-35.7); MCV 87 fL (79-97); Monocytes 6 % (Not Estab.); Monocytes (Absolute) 0.2 x10E3/uL (0.1-0.9); Neutrophils 54 % (Not Estab.); Neutrophils (Absolute) 2.3 x10E3/uL (1.4-7.0); Percent % CD4 Pos. Lymph. 37.7 % (30.8-58.5); Platelets 276 x10E3/uL (150-450); RBC Count 5.23 x10E6/uL (4.14-5.80); RDW 13.5 % (11.6-15.4); WBC Count 4.2 x10E3/uL (3.4-10.8)
[2022-06-20 16:18] LABS: NRBC Count 1 % (0 - 0)
[2022-06-21 16:30] LABS: HIV-1 RNA by PCR, Quant. < 20 copies/mL (.)
== END | disposition home or self-care (01) ==
LOC: LAB 10:44
PROVIDERS: PCP Internal Medicine; Visit Provider Internal Medicine Infectious Disease
DX: Z21 Asymptomatic human immunodeficiency virus [HIV] infection status (principal)
CPT/HCPCS: 36415; 80048; 85027; 86361; 87536

== ENCOUNTER 2022-09-18 08:58 | Day surgery (SDC) | payer OTHER, SELFPAY ==
[2022-09-18] VITALS (7 sets, daily range): BP systolic 89–140; BP diastolic 50–87; PULSE 60–77; RESP 16–18; TEMP 36.2–37.3; O2SAT 97–98; BMI 30.2
--- NOTE | 2022-09-18 | COLBX_PTH ---
PATIENT: PARTH ESQUIVEL LOC: EN U#:[id number] AGE/SX: 52/M ROOM: RE09/18/[address]: Dr. Martinez Taveras MD : 1970 BED: DIS: 09/18/2022 SPEC #: [id number] RECD: 09/18/22 13:44 STATUS: BHAVIN SILVERIO #: [id number] BETHANY: 09/18/22 00:[address]: Martinez Taveras DEPT: SURGICAL PATHOLOGY RECD BY: Parth Jones ENTERED: 09/18/22 13:44 SP TYPE: COLON BX OTHR DR: Dr. Norah Dent MD Tissues: Cecum, NOS Procedures: Surgery Specimen Level IV HEADER OPERATION: Colonoscopy ? open access (MAC) PRE-OP DIAGNOSIS: Screening TISSUE SUBMITTED: Cecum polyp MICROSCOPIC DIAGNOSIS Cecal polyp, biopsy: Tubular adenoma. AM:jyothi 09/19/2022 MICROSCOPIC DESCRIPTION Slides are reviewed. GROSS DESCRIPTION Received in fixative is one container labeled with the patient's name and designated cecum polyp. The specimen consists of one irregular fragment of light clarke soft tissue that measures 0.3 x 0.3 x 0.1 cm. The specimen is totally submitted in one cassette. / SJ:jyothi 09/18/2022 TC:5 CPT: 81223
[2022-09-18] MEDS: Lactated Ringers 1,000 ML 15 ML IV (09:26)
--- NOTE | 2022-09-18 10:45 | HP.PCM_ITS ---
HPI - General HPI Narrative SOL ESQUIVEL, is a 52 M who presents for screening colonoscopy. Patient does report that his father had colon cancer at age 66. Patient has never had a colonoscopy before. He denies any abdominal pain or blood in the stool. [facility] Medical History (Updated 09/13/22 @ 16:45 by Cecy Reyes) Current every day cannabis vapor product user Excessive bleeding High cholesterol HIV disease HSV infection Wears glasses Home Medications acetaminophen 325 mg tablet 650 mg PO Q6H PRN PRN Pain/Fever 05/12/18 [Rx Last Taken Unknown] acyclovir 400 mg tablet 400 mg PO BID herpes 07/28/20 [History Last Taken U nknown] bictegravir 50 mg-emtricitabine 200 mg-tenofovir alafenam 25 mg tablet 1 tab PO QHS HIV 10/11/20 [History Last Taken Unknown] medical canabis 1 inh PO TID vaporization 10/11/20 [History Last Taken Unknown] Allergy/AdvReac Type Severity Reaction Status Date / Time No Known Allergies Allergy Verified 09/18/22 09:16 Family History Father Cancer melanoma Colon cancer Hypertension Grandmother Diabetes Aunt Diabetes Other Dementia Surgical History History of appendectomy Social History Smoking Status: Light Smoker (<10/day) alcohol intake: current alcohol intake frequency: holidays/special occasions only what type of physical activity do you participate in: other details: active job Past Medical/Surgical History Planned Operation Planned Operative Procedure/s: COLONOSCOPY Previous Hospitalizations/Surgeries HX Hospitalizations: No Any Problems With Anesthesia: No You/Your Family Experience Fever (Hyperthermia) With Anes: No Cholinesterase deficiency: No Cardiovascular Hx Chest Pain within Last 2 months: No Hx of Irregular Heartbeat and/or Afib: No Hx Heart Attack: No Hx Hypertension: No Hx Cardiac Catheterization: No Hx Cardiac Surgery/Stents/Etc.: No Hx Pain in Legs when Walking/Leg Cramps: No Respiratory Hx Chronic Obstructive Pulmonary Disease (COPD): No Hx Asthma: No Hx Emphysema: No Hx Sleep Apnea: No Hx Respiratory Tract Infection/Cold (presently): No Do You Snore Loudly (louder than talking or can be heard): No Do You Often Feel Tired/ Fatigued/ Sleepy Dring Daytime?: No Has Anyone Observed You Stop Breathing During Sleep?: No Result (for STOP score): Negative Hx Smoking: Yes Smoking Status: Light Smoker (<10/day) Gastrointestinal Hx Gastroesophageal Reflux: Yes Controlled With Meds: Yes Hx Gastrointestinal Bleed: No Hx Ulcer: No Hx Unplanned Weight Loss of 20#: No Neurological Hx Seizures: No Hx Multiple Sclerosis: No Hx Parkinson's Disease: No Hx Back Injury/Pain: No Does patient have nerve stimulator: No Blood Disorder Hx High Cholesterol: No Hx Hepatitis: No Hx Cirrhosis: No Hx Anemia: No Hx Blood Disorders: No Genitourinary Hx Renal Disease: No Hx Dialysis: No Musculoskeletal Hx Arthritis: Yes Hx Rheumatoid Arthritis: No Endocrine Hx Diabetes: No Thyroid Disease: No Psycho/Social Hx Substance Use: Yes (marijuana) Hx Alcohol Use: Yes (rarely) Hx Anxiety: No Hx Depression: No Hx Dementia: No Miscellaneous Hx Cancer: No Recent Exposure to Contagious Disease: No Allergies No Known Allergies Allergy (Verified 09/18/22 09:16) Discharge Is Pt Admitted From a Skilled Nursing, or a Mcfp: No Who Could Help: FRIEND After D/C, Where Do you Plan to Go: Return Home Vital Signs Vital Signs Vital Signs: 09/18/22 09:17 09/18/22 09:19 Temperature 97.2 F L Temperature Source Temporal Pulse Rate 68 Respiratory Rate 18 Respiratory Pattern Normal Blood Pressure 140/86 H Blood Pressure Mean 104 Blood Pressure Source Monitor Blood Pressure Position Semi-Fowlers Blood Pressure Location Right Arm Pulse Ox 98 Oxygen Delivery Method Room Air Weight Weight: 223 lb Body Mass Index (BMI) 30.2 Physical Exam Const alert and oriented x3 HEENT normocephalic Eyes PERRL Resp normal respiratory effort and normal air movement Cardio regular rate and regular rhythm GI soft to palpation, non-tender and non-distended Extremity normal to inspection Assessment & Plan Assessment/Plan (1) Encounter for screening for malignant neoplasm of colon: PLAN: I explained endoscopy in detail to the patient. I explained the risks including but not limited to stroke or heart attack with anesthesia, perforation of the GI tract, bleeding, infection. I explained that any of these could necessitate further emergency surgery. The patient understands and all questions were answered sufficiently. The patient wishes to proceed with procedure. Martinez Taveras MD Pager: [facility] [address] [place] [address], [address] [place] [address] Office: Surgery Risks - Colonoscopy Risks Include but are not Limited To: Risks include but are not limited to: Bleeding, perforation requiring further surgery, inability to complete colonoscopy requiring barium enema.
--- NOTE | 2022-09-18 11:39 | OP.COLON_ITS ---
Patient Name: Parth Moreno Procedure Date: 09/18/2022 11:13 AM Date of : 1970 Age: 52 Procedure: Colonoscopy Indications: Screening in patient at increased risk: Colorectal cancer in father 60 or older Providers: Martinez Taveras MD Referring MD: Martinez Taveras MD Medicines: Monitored Anesthesia Care Patient Profile: This is a 52 year old male. Refer to note in patient chart for documentation of history and physical. Last Colonoscopy: none. The patient's first colonoscopy is today. Complications: No immediate complications. Procedure: Pre-Anesthesia Assessment: - Prior to the procedure, a History and Physical was performed, and patient medications and allergies were reviewed. The patient's tolerance of previous anesthesia was also reviewed. The risks and benefits of the procedure and the sedation options and risks were discussed with the patient. All questions were answered, and informed consent was obtained. Prior Anticoagulants: The patient has taken no previous anticoagulant or antiplatelet agents. After reviewing the risks and benefits, the patient was deemed in satisfactory condition to undergo the procedure. After I obtained informed consent, the scope was passed under direct vision. Throughout the procedure, the patient's blood pressure, pulse, and oxygen saturations were monitored continuously. The colonoscope was introduced through the anus and advanced to the cecum, identified by appendiceal orifice and ileocecal valve. The colonoscopy was performed without difficulty. The patient tolerated the procedure well. The quality of the bowel preparation was good. Scope In: 11:23:53 AM Scope Withdrawal Time 0 hours 5 minutes 0 seconds Scope Out: 11:33:47 AM Total Procedure Duration Time 0 hours 9 minutes 54 seconds Findings: A small polyp was found in the cecum. The polyp was removed with a hot snare. Resection and retrieval were complete. The exam was otherwise without abnormality on direct and retroflexion views. Impression: - One small polyp in the cecum, removed with a hot snare. Resected and retrieved. - The examination was otherwise normal on direct and retroflexion views. Recommendation: - Discharge patient to home. - Resume previous diet. - Continue present medications. - Await pathology results. - Repeat colonoscopy in 5 years for surveillance. Procedure Code(s): --- Professional --- 66257, Colonoscopy, flexible; with removal of tumor(s), polyp(s), or other lesion(s) by snare technique Diagnosis Code(s): --- Professional --- Z80.0, Family history of malignant neoplasm of digestive organs D12.0, Benign neoplasm of cecum CPT copyright 2017 [employer]. All rights reserved. The codes documented in this report are preliminary and upon roller bearing inspector review may be revised to meet current compliance requirements. Martinez Taveras MD 09/18/2022 11:38:40 AM This report has been signed electronically. Number of Addenda: 0 Note Initiated On: 09/18/2022 11:13 AM
--- NOTE | 2022-09-18 11:40 | OP.CCLET_ITS ---
09/18/2022 Norah Dent [facility] [address] [place] [address] Re : Colonoscopy procedure for Parth Moreno Dear Dr. Dent This procedure was performed on Sunday, September 18, 2022. My impressions and recommendations are as follows: Impressions : - One small polyp in the cecum, removed with a hot snare. Resected and retrieved. - The examination was otherwise normal on direct and retroflexion views. Recommendations : - Discharge patient to home. - Resume previous diet. - Continue present medications. - Await pathology results. - Repeat colonoscopy in 5 years for surveillance. My findings are described in the full procedure note, which is enclosed. If I can be of further assistance, please feel free to contact me at Doctor phone number(s): , Work: . Sincerely, Martinez Taveras MD 09/18/2022 11:38:40 AM This report has been signed electronically.
== END 2022-09-18 12:25 | disposition home or self-care (01) ==
LOC: EN 09:01 → AC 09:02
PROVIDERS: PCP Internal Medicine; Referring Provider Surgery; Visit Provider Surgery
PROC: 0DJD8ZZ Inspection of Lower Intestinal Tract, Via Natural or Artificial Opening Endoscopic (ICD-10-PCS; CPT 45378; principal; 2022-09-18 09:55)
DX: Z12.11 Encounter for screening for malignant neoplasm of colon (principal); D12.0 Benign neoplasm of cecum; E78.00 Pure hypercholesterolemia, unspecified; Z80.0 Family history of malignant neoplasm of digestive organs; F17.210 Nicotine dependence, cigarettes, uncomplicated
CPT/HCPCS: 45385; 88305; J7120; J2405

== ENCOUNTER → 2022-12-27 | Outpatient (CLI) | payer OTHER, SELFPAY ==
[2022-12-27 12:10] LABS: Hematocrit 40.9 % (40-54); Hemoglobin 13.2 g/dL (13.0-16.5); Mean Corp Hgb Conc 32.3 g/dL (32-36); Mean Corpuscular Volume 83.6 fL (80-94); Mean Platelet Vol. 8.9 fl (6.2-12.0); Platelet Count 282 K/mm3 (150-450); RBC Distribution Width CV 12.5 % (11.6-14.6); RBC Distribution Width SD 38.2 fl (35.1-43.9); Red Blood Count 4.89 M/mm3 (4.6-6.2); White Blood Count 3.4 K/mm3 (4.4-11.0)
[2022-12-27 12:29] LABS: Anion Gap 4 (5-15); BUN 18 mg/dL (7-18); BUN/Creat Ratio 15.9 RATIO (10-20); Calcium,Total 8.9 mg/dL (8.5-10.1); Chloride 109 mmol/L (98-107); Creatinine, Serum 1.13 mg/dL (0.70-1.30); EST Glomerular Filtration Rate 73 mL/min (>60); Est Glom Filt Rate - Afr Amer 88 mL/min (>60); Glucose 118 mg/dL (74-106); Potassium 4.4 mmol/L (3.5-5.1); Sodium Level 140 mmol/L (136-145)
[2022-12-27 13:19] LABS: Syphilis Antibodies REACTIVE
[2022-12-28 14:09] LABS: Absolute CD4 Helper 477 /uL (359-1519); Basophils (Absolute) 0 x10E3/uL (0.0-0.2); CD4/CD8 Ratio 0.81 (0.92-3.72); Eosinophils 2 % (Not Estab.); Eosinophils (Absolute) 0.1 x10E3/uL (0.0-0.4); Hematocrit 39.5 % (37.5-51.0); Hemoglobin 13.1 g/dL (13.0-17.7); Immature Granulocytes 0 % (Not Estab.); Lymphs 41 % (Not Estab.); Lymphs (Absolute) 1.4 x10E3/uL (0.7-3.1); MCHC 33.2 g/dL (31.5-35.7); MCV 81 fL (79-97); Monocytes 9 % (Not Estab.); Monocytes (Absolute) 0.3 x10E3/uL (0.1-0.9); Neutrophils 47 % (Not Estab.); Neutrophils (Absolute) 1.6 x10E3/uL (1.4-7.0); Percent % CD4 Pos. Lymph. 34.1 % (30.8-58.5); Percent % CD8 Pos. Lymph. 42.3 % (12.0-35.5); Platelets 301 x10E3/uL (150-450); RBC Count 4.85 x10E6/uL (4.14-5.80); RDW 12.5 % (11.6-15.4); WBC Count 3.4 x10E3/uL (3.4-10.8)
[2022-12-28 14:36] LABS: Immature Granulocytes Absolute 0 x10E3/uL (0.0-0.1)
[2022-12-30 08:30] LABS: HIV-1 RNA by PCR, Quant. < 20 copies/mL (.)
== END | disposition home or self-care (01) ==
PROVIDERS: PCP Internal Medicine; Visit Provider Internal Medicine Infectious Disease
DX: Z21 Asymptomatic human immunodeficiency virus [HIV] infection status (principal)
CPT/HCPCS: 36415; 80048; 85027; 86360; 86780; 87536

== ENCOUNTER → 2023-07-01 | Outpatient (CLI) | payer OTHER, SELFPAY ==
[2023-07-01 12:35] LABS: Hematocrit 45.9 % (40-54); Hemoglobin 15.2 g/dL (13.0-16.5); Mean Corp Hgb Conc 33.1 g/dL (32-36); Mean Corpuscular Hgb 28.3 pg (27.0-32.0); Mean Corpuscular Volume 85.5 fL (80-94); Mean Platelet Vol. 8.9 fl (6.2-12.0); Platelet Count 263 K/mm3 (150-450); RBC Distribution Width CV 12.8 % (11.6-14.6); RBC Distribution Width SD 39.7 fl (35.1-43.9); Red Blood Count 5.37 M/mm3 (4.6-6.2); White Blood Count 5.2 K/mm3 (4.4-11.0)
[2023-07-01 13:08] LABS: Anion Gap 6 (5-15); BUN 20 mg/dL (7-18); BUN/Creat Ratio 16.4 RATIO (10-20); Calcium,Total 9.4 mg/dL (8.5-10.1); Chloride 105 mmol/L (98-107); Creatinine, Serum 1.22 mg/dL (0.70-1.30); EST Glomerular Filtration Rate 66 mL/min (>60); Est Glom Filt Rate - Afr Amer 80 mL/min (>60); Glucose 114 mg/dL (74-106); Potassium 4.5 mmol/L (3.5-5.1); Sodium Level 136 mmol/L (136-145)
[2023-07-01 13:23] LABS: Syphilis Antibodies REACTIVE
[2023-07-02 13:07] LABS: Absolute CD4 Helper 852 /uL (359-1519); Basophils (Absolute) 0.1 x10E3/uL (0.0-0.2); Eosinophils 1 % (Not Estab.); Eosinophils (Absolute) 0.1 x10E3/uL (0.0-0.4); Hematocrit 45.6 % (37.5-51.0); Hemoglobin 15.6 g/dL (13.0-17.7); Immature Granulocytes 0 % (Not Estab.); Immature Granulocytes Absolute 0 x10E3/uL (0.0-0.1); Lymphs 45 % (Not Estab.); Lymphs (Absolute) 2.4 x10E3/uL (0.7-3.1); MCH 29.1 pg (26.6-33.0); MCHC 34.2 g/dL (31.5-35.7); MCV 85 fL (79-97); Monocytes 5 % (Not Estab.); Monocytes (Absolute) 0.3 x10E3/uL (0.1-0.9); Neutrophils 48 % (Not Estab.); Neutrophils (Absolute) 2.5 x10E3/uL (1.4-7.0); Percent % CD4 Pos. Lymph. 35.5 % (30.8-58.5); Platelets 262 x10E3/uL (150-450); RBC Count 5.36 x10E6/uL (4.14-5.80); RDW 13.7 % (11.6-15.4); WBC Count 5.3 x10E3/uL (3.4-10.8)
[2023-07-03 13:08] LABS: HIV-1 RNA by PCR, Quant. < 20 copies/mL (.)
== END | disposition home or self-care (01) ==
LOC: LAB 11:20
PROVIDERS: PCP Internal Medicine; Visit Provider Internal Medicine Infectious Disease
DX: B20 Human immunodeficiency virus [HIV] disease (principal)
CPT/HCPCS: 36415; 80048; 85027; 86361; 86780; 87536

== ENCOUNTER → 2023-12-02 | Outpatient (CLI) | payer OTHER, SELFPAY ==
[2023-12-02 16:17] LABS: Absolute Neutrophil Count 3.8 X10^3/uL (2.0-7.7); Basophil# 0.06 X10^3/uL; Basophil% 0.8 % (0-1); Eosinophil# 0.15 X10^3/uL; Eosinophils% 2.1 % (0-5); Hematocrit 47.1 % (40-54); Hemoglobin 15.8 g/dL (13.0-16.5); Mean Corp Hgb Conc 33.5 g/dL (32-36); Mean Corpuscular Hgb 28.2 pg (27.0-32.0); Mean Corpuscular Volume 84.1 fL (80-94); Mean Platelet Vol. 8.9 fl (6.2-12.0); Monocyte% 5.6 % (0-10); NRBC Flagged by Analyzer 0 % (0-5); Neutrophil # 3.75 X10^3/uL (2.7-7.7); Neutrophil % 52.2 % (47-70); Platelet Count 338 K/mm3 (150-450); RBC Distribution Width CV 12.3 % (11.6-14.6); RBC Distribution Width SD 37.4 fl (35.1-43.9); White Blood Count 7.2 K/mm3 (4.4-11.0)
[2023-12-02 17:10] LABS: Hemoglobin A1c 5.9 % (3.8-5.6)
[2023-12-02 17:17] LABS: ALB/GLOB Ratio 0.9 RATIO (0.9-2.4); AST(SGOT) 19 U/L (15-37); Alanine Aminotransfer ALT/SGPT 26 U/L (16-61); Albumin, Serum 3.8 g/dL (3.2-5.0); Alkaline Phosphatase 67 U/L (45-117); Anion Gap 4 (5-15); BUN 16 mg/dL (7-18); BUN/Creat Ratio 13.2 RATIO (10-20); Calcium,Total 8.9 mg/dL (8.5-10.1); Chloride 108 mmol/L (98-107); Cholesterol 179 mg/dL (200); Creatinine, Serum 1.21 mg/dL (0.70-1.30); EST Glomerular Filtration Rate 67 mL/min (>60); Est Glom Filt Rate - Afr Amer 81 mL/min (>60); Free T3 2.6 pg/mL (2.18-3.98); Globulin 4.2 g/dL (2.2-4.2); Glucose 88 mg/dL (74-106); High Density Lipoprotein 32 mg/dL; PSA,Total - Annual Screen 3.28 ng/mL (0.00-4.00); Potassium 4.5 mmol/L (3.5-5.1); Sodium Level 138 mmol/L (136-145); T4 Free Direct 0.85 ng/dL (0.76-1.46); Thyroid Stim Hormone (TSH) 2.34 uIU/mL (0.358-3.74); Triglycerides 375 mg/dL; Very Low Density Lipoprotein 75 mg/dL (5-40)
[2023-12-02 17:31] LABS: Insulin 24.7 mU/L (2.6-37.6); Syphilis Antibodies Reactive; Vitamin B12 257 pg/mL (211-911); Vitamin D,25 Hydroxy 26.1 ng/mL
[2023-12-04 16:10] LABS: Absolute CD4 Helper 903 /uL (359-1519); Basophils (Absolute) 0.1 x10E3/uL (0.0-0.2); Eosinophils 2 % (Not Estab.); Eosinophils (Absolute) 0.1 x10E3/uL (0.0-0.4); Hematocrit 49.1 % (37.5-51.0); Hemoglobin 16.1 g/dL (13.0-17.7); Immature Granulocytes 0 % (Not Estab.); Immature Granulocytes Absolute 0 x10E3/uL (0.0-0.1); Lymphs 39 % (Not Estab.); Lymphs (Absolute) 2.5 x10E3/uL (0.7-3.1); MCH 28.3 pg (26.6-33.0); MCHC 32.8 g/dL (31.5-35.7); MCV 86 fL (79-97); Monocytes 5 % (Not Estab.); Monocytes (Absolute) 0.3 x10E3/uL (0.1-0.9); Neutrophils 53 % (Not Estab.); Neutrophils (Absolute) 3.4 x10E3/uL (1.4-7.0); Percent % CD4 Pos. Lymph. 36.1 % (30.8-58.5); Platelets 345 x10E3/uL (150-450); RBC Count 5.68 x10E6/uL (4.14-5.80); RDW 13.1 % (11.6-15.4); WBC Count 6.4 x10E3/uL (3.4-10.8)
[2023-12-05 06:09] LABS: HIV-1 RNA by PCR, Quant. < 20 copies/mL (.)
== END | disposition home or self-care (01) ==
PROVIDERS: PCP Internal Medicine; Referring Provider Internal Medicine; Visit Provider Internal Medicine
DX: R73.9 Hyperglycemia, unspecified (principal); Z21 Asymptomatic human immunodeficiency virus [HIV] infection status; E66.9 Obesity, unspecified; E78.5 Hyperlipidemia, unspecified; E88.819 Insulin resistance, unspecified; E55.9 Vitamin D deficiency, unspecified; Z12.5 Encounter for screening for malignant neoplasm of prostate
CPT/HCPCS: 36415; 80053; 80061; 82306; 82607; 83036; 83525; 84153; 84439; 84443; 84481; 85025; 86361; 86780; 87536; G0103

== ENCOUNTER → 2023-12-04 | Outpatient (CLI) | payer OTHER, SELFPAY ==
[2023-12-04 11:11] LABS: Bacteria 0 SEEN /hpf (None Seen); Mucous, Urine 0 SEEN /hpf (<or=2+); Red Blood Cells-Urine 0 SEEN /hpf (0-5); Squamous Epithelial Cells - UA 0 SEEN /hpf (0-5); White Blood Cells 0 SEEN /hpf (0-5)
--- OUTSIDE RECORDS SUMMARY | 2023-12-04 11:30 | XMS RPT_ITS | CCD ---
Author Name Unknown Address [facility] [place] [address] Organization [facility] Care Team Providers Care Tip Stretcher Name Role Phone IZAIAH, RAMSES T Unavailable Unavailable IZAIAH, RAMSES T Unavailable Unavailable IZAIAH, RAMSES T Unavailable Unavailable IZAIAH, RAMSES T Unavailable Unavailable IZAIAH, RAMSES T Unavailable Unavailable IZAIAH, RAMSES T Unavailable Unavailable IZAIAH, RAMSES T Unavailable Unavailable Problems Problem Classification Problem Date Documented Da te Episodic/Chronic Abdominal pain (1 source) Right lower quadrant pain; Translations: [Right lower quadrant pain] Onset: 05-08-2018 Episodic Appendicitis and other appendiceal conditions (1 source) Acute appendicitis with localized peritonitis; Translations: [Acute appendicitis with localized peritonitis] Onset: 05-08-2018 Episodic Unclassified (1 source) Unknown / UNK(Unknown) Onset: 05-08-2018 Results Test Name Value Interpretation Reference Range Facil ity Encounters Encounter Date Encounter Type Care Provider Facility Start: 05-13-2018 End: 05-14-2018 Patient encounter RAMSES BLEVINSTMAN [facility] Start: 05-08-2018 End: 05-08-2018 Patient encounter RAMSES BLEVINSTMAN [facility] Start: 05-08-2018 End: 05-09-2018 Patient encounter RAMSES BLISS [facility] Start: 05-01-2018 End: 05-02-2018 Patient encounter RAMSES BLEVINSTMAN [facility] Summary Purpose Family History No Family History Records Found Advance Directives No Advanced Directives Records Found Additional Source Comments (unrecognized sect ion and content) No Status Records Found INFORMATION SOURCE (unrecogn ized section and content) FOR RECORDS PERTAINING TO PATIENTS WHO ARE OR HAVE BEEN ENROLLED IN A CHEMICAL DEPENDENCY/SUBSTANCEABUSE PROGRAM, SOME INFORMATION MAY BE OMITTED. This clinical summary was aggregated from multiple sources. Caution should be exercised in using it in the provision of clinical care. This summary normalizes information from multiple sources, and as a consequence, information in this document may materially change the coding, format and clinical context of patient data. In addition, data may be omitted in some cases. CLINICAL DECISIONS SHOULD BE BASED ON THE PRIMARY CLINICAL RECORDS. [employer] [facility]. provides no warranty or guarantee of the accuracy or completeness of information in this document.
[2023-12-04 11:58] LABS: Color, Urine Yellow (Yellow); Glucose, Dipstick Normal (Normal); Ketone-Dipstick Negative (Negative); Leukocyte Esterase-Dipstick Negative /ul (Negative); Nitrite-Dipstick Negative (Negative); Occult Blood-Urine 25 /ul (Negative); Protein-Dipstick Negative (Negative); Specific Gravity, Urine 1.025 (1.002-1.030); Urine Bilirubin Dipstick Negative (Negative); Urine Clarity Clear (Clear); Urine Urobilinogen Normal (Normal)
== END | disposition home or self-care (01) ==
LOC: LAB 11:08
PROVIDERS: PCP Internal Medicine; Referring Provider Internal Medicine; Visit Provider Internal Medicine
DX: R36.9 Urethral discharge, unspecified (principal); R31.9 Hematuria, unspecified
CPT/HCPCS: 81001; 87491; 87591

== ENCOUNTER → 2024-07-01 | Outpatient (CLI) | payer OTHER, SELFPAY ==
[2024-07-01 13:39] LABS: Hematocrit 44.9 % (40-54); Hemoglobin 14.9 g/dL (13.0-16.5); Mean Corp Hgb Conc 33.2 g/dL (32-36); Mean Corpuscular Hgb 27.7 pg (27.0-32.0); Mean Corpuscular Volume 83.5 fL (80-94); Mean Platelet Vol. 8.9 fl (6.2-12.0); Platelet Count 294 K/mm3 (150-450); RBC Distribution Width CV 12.7 % (11.6-14.6); RBC Distribution Width SD 38.2 fl (35.1-43.9); Red Blood Count 5.38 M/mm3 (4.6-6.2); White Blood Count 4.2 K/mm3 (4.4-11.0)
[2024-07-01 14:03] LABS: Anion Gap 9 (5-15); BUN 18 mg/dL (7-18); BUN/Creat Ratio 16.7 RATIO (10-20); Calcium,Total 9.4 mg/dL (8.5-10.1); Chloride 103 mmol/L (98-107); Creatinine, Serum 1.08 mg/dL (0.70-1.30); EST Glomerular Filtration Rate 76 mL/min (>60); Est Glom Filt Rate - Afr Amer 92 mL/min (>60); Glucose 152 mg/dL (74-106); Potassium 3.9 mmol/L (3.5-5.1); Sodium Level 137 mmol/L (136-145)
[2024-07-01 14:51] LABS: Hepatitis C Antibody Non-Reactive (Nonreactive); Syphilis Antibodies Reactive
[2024-07-03 15:09] LABS: Absolute CD4 Helper 695 /uL (359-1519); Basophils (Absolute) 0 x10E3/uL (0.0-0.2); Eosinophils 2 % (Not Estab.); Eosinophils (Absolute) 0.1 x10E3/uL (0.0-0.4); Hematocrit 48.6 % (37.5-51.0); Hemoglobin 15.5 g/dL (13.0-17.7); Immature Granulocytes 0 % (Not Estab.); Immature Granulocytes Absolute 0 x10E3/uL (0.0-0.1); Lymphs 39 % (Not Estab.); Lymphs (Absolute) 1.7 x10E3/uL (0.7-3.1); MCH 29.1 pg (26.6-33.0); MCHC 31.9 g/dL (31.5-35.7); MCV 91 fL (79-97); Monocytes 5 % (Not Estab.); Monocytes (Absolute) 0.2 x10E3/uL (0.1-0.9); Neutrophils 53 % (Not Estab.); Neutrophils (Absolute) 2.2 x10E3/uL (1.4-7.0); Percent % CD4 Pos. Lymph. 40.9 % (30.8-58.5); Platelets 298 x10E3/uL (150-450); RBC Count 5.33 x10E6/uL (4.14-5.80); RDW 13.2 % (11.6-15.4); WBC Count 4.3 x10E3/uL (3.4-10.8)
[2024-07-04 03:07] LABS: HIV-1 RNA by PCR, Quant. < 20 copies/mL (.)
== END | disposition home or self-care (01) ==
PROVIDERS: PCP Internal Medicine; Referring Provider Internal Medicine Infectious Disease; Visit Provider Internal Medicine Infectious Disease
DX: Z21 Asymptomatic human immunodeficiency virus [HIV] infection status (principal)
CPT/HCPCS: 80048; 85027; 86361; 86780; 86803; 87491; 87536; 87591

== ENCOUNTER 2024-08-13 23:14 | Emergency (ER) | payer OTHER, SELFPAY ==
[2024-08-13 23:15] VITALS: BP 151/74; PULSE 100; RESP 18; TEMP 37.3; O2SAT 95; BMI 29.4
--- NOTE | 2024-08-13 23:54 | RAD_ITS ---
INDICATION: cough EXAMINATION/TECHNIQUE: X-RAY - XR Chest 2 Views COMPARISON: None. FINDINGS: LINES/DEVICES: None. LUNGS: Scattered bilateral airspace opacities. No evidence of a pleural effusion or a pneumothorax. MEDIASTINUM AND CARDIOVASCULAR STRUCTURES: Cardiac silhouette is normal in size and contour. Mediastinum is unremarkable. BONES AND SOFT TISSUES: No acute abnormality. RAD/Chest PA and Lateral IMPRESSION: Scattered bilateral airspace opacities which may represent pneumonia and/or mild edema. Electronically Signed: Timo Choudhury DO at 0:39 EDT ,
--- NOTE | 2024-08-13 23:54 | EX.ED.DYSGE1 ---
HPI History of Present Illness Chief Complaint: General Illness Informant: patient Onset/Context/Timing Onset: Days Context: Gradual Onset Timing: Continuous Current Severity: Mild Maximum Severity: Mild Narrative Narrative: 53-year-old male history of HIV positive. Currently his viral load is around 20. He sees infectious disease. States had 3-day history of URI symptoms with chills and night sweats. He has had some blood-tinged sputum. Denies any documented fever. No vomiting or diarrhea. No bruising. No gross hematuria or melena. No history of PE or DVT. No recent travel, surgery or immobilization. No chest pain or shortness of breath. No history of PCP pneumonia. Prior similar symptoms: Yes Recent Illness/Hospitalization: No PFSH PFS Medical History Current every day cannabis vapor product user Wears glasses Excessive bleeding HSV infection HIV disease Home Medications ?Medication ?Instructions ?Recorded ?Last Taken ?Type acyclovir 400 mg tablet 400 mg PO BID herpes 07/28/20 Unknown History bictegravir 50 mg-emtricitabine 1 tab PO QHS HIV 10/11/20 Unknown History 200 mg-tenofovir alafenam 25 mg tablet medical canabis 1 inh PO TID vaporization 10/11/20 Unknown History erythromycin 5 mg/gram (0.5 %) eye 0.5 inch ophthalmic (eye) TID 5 12/02/23 Unknown Rx ointment days #3.5 grams amoxicillin 500 mg capsule 1,000 mg (2 x 500 mg) PO TID 10 08/14/24 Unknown Rx days #60 caps Allergy/AdvReac Type Severity Reaction Status Date / Time No Known Allergies Allergy Verified 08/13/24 23:19 Family History Father Cancer melanoma Colon cancer Hypertension Grandmother Diabetes Aunt Diabetes Other Dementia Surgical History History of appendectomy Social History Smoking Status: Never smoker alcohol intake: current alcohol intake frequency: holidays/special occasions only substance use type: marijuana what type of physical activity do you participate in: other details: active job ROS ROS ED ROS Narrative Productive cough with chills. Constitutional Constitutional ED: Reports chills Eyes Eyes: Denies blurry vision ENT ENT ED: Reports rhinorrhea; Denies ear pain or sore throat Cardiovascular Cardiovascular: Denies chest pain, palpitations or racing heartbeat Respiratory/Chest Respiratory/Chest: Reports cough and sputum; Denies dyspnea or dyspnea on exertion Gastrointestinal Gastrointestinal: Denies abdominal pain or vomiting Genitourinary Genitourinary ED: Denies dysuria or hematuria Musculoskeletal Musculoskeletal: Denies arthralgias Integumentary Denies abscess Neurologic Neurologic: Denies headache(s) Psychiatric Psychiatric: Denies anxiety Endocrine Endocrinology: Denies cold intolerance Hematologic/Lymphatic Hematologic/Lymphatic: Reports none Allergic/Immunologic Allergic/Immunologic ED: Denies mouth swelling, tongue swelling or urticaria EXAM Physical Exam Narrative Exam Narrative: Well-appearing 53-year-old male. Vital signs are stable afebrile. Temperature nine 9.1 orally. Pulse ox 95% on room air no hypoxia. H EENT exam unremarkable. Pupils round react light. TMs normal. Posterior pharynx normal. No erythema or exudate. No trouble swallowing or breathing. No stridor or drooling. No blood. Neck nontender no lymphadenopathy. Trachea midline. Lungs clear to auscultation bilaterally. Heart regular rhythm rate about 100 no murmur. Chest wall ribs nontender. Abdomen soft nontender. Moving all 4 extremities. Nontender no edema or cords. Normal radio script writer strength. Normal dorsi plantarflexion. Back nontender. Patient awake alert no focal motor deficits. Const Vital Signs: 08/13/24 23:15 08/13/24 23:22 Temperature 99.1 F Temperature Source Oral Pulse Rate 100 Respiratory Rate 18 Respiratory Effort Normal Respiratory Pattern Normal Blood Pressure 151/74 H Blood Pressure Mean 99 Pulse Ox 95 Oxygen Delivery Method Room Air Positive well nourished and well developed; Negative for cachectic, contractures or unkempt General Appearance ED: well developed and NAD; Negative for unkempt, cachectic, contractures, cyanotic, diaphoretic or pallor Nutritional Appearance: Negative for cachectic HEENT Reports TM's clear and moist mucous membranes Negative for trauma or tenderness Tympanic Membrane ED: Yes TM's clear Eyes EOMs intact bilaterally General Eye ED: Negative for pale conjunctiva or scleral icterus Neck no lymphadenopathy, supple and no JVD General: Negative for tenderness Lymph Lymphatic: Negative for other Chest Wall inspection of chest normal and palpation of chest normal Chest: Negative for other Resp normal respiratory effort and clear to auscultation bilaterally Effort and Inspection: Negative for retractions Auscultation: Negative for rales, rhonchi, wheezes or diminished lung sounds Cardio regular rate, regular rhythm, S1 normal heart sound, S2 normal heart sound and no murmurs Palpation: Negative for palpable S3 or palpable S4 Rate: Negative for bradycardia or tachycardic Rhythm: Negative for abnormal rhythm GI normal to inspection, nondistended, normoactive bowel sounds, non-tender, non-distended and no masses Inspection: Negative for abdominal distention Palpation: soft; Negative for tender, guarding or rebound tenderness present Back/Spine no CVA tenderness General Back: Negative for CVA tenderness Cervical Spine: Negative for cervical spine tenderness Thoracic Spine / Upper Back: Negative for thoracic spinal tenderness or paraspinal muscle tenderness Lumbar Spine / Lower Back: Negative for lumbar spinal tenderness Extremity normal to inspection General Extremety ED: Negative for edema or tenderness General Extremity: Negative for edema Neuro oriented x3 and CN's II-XII intact bilaterally Sensorium / Orientation: alert and orientation impaired; Negative for lethargic or stuporous Motor Exam: strength 5/5 throughout; Negative for general weakness or strength abnormal Psych mental status grossly normal Appearance: Negative for unkempt Attitude: No agitated Mood & Affect: Negative for depressed, anxious or tearful Skin no rashes or lesions noted, no wounds and skin turgor normal General Skin Exam: elasticity normal; Negative for jaundice or pallor Lesions: No lesion noted Rashes: No rashes noted Trauma: Negative for abrasion Wounds: Negative for wounds noted MDM MDM MDM Narrative Medical decision making narrative: 53-year-old male with URI symptoms. Blood-tinged sputum. No history of DVT or PE or risk factors. HIV positive. Chest x-ray be obtained to evaluate for possible pneumonia or PCP. He has had recent blood work that I will review. Repeat exam patient is unchanged at 1:20 AM. I discussed with him his chest x-ray results and went over the x-ray with him. Said he feels well. His vital signs are stable. He do not think he needs any lab work at this time. He is comfortable being discharged home. Will be treated with amoxicillin 1 g 3 times daily for 10 days. Follow-up with his infectious disease doctor later today. Return if feeling worse. History & Record Review Discussion w/independent historian: Patient Additional record(s) reviewed:: Prior outpatient record, Prior ED visit and Prior labs Radiography Chest X-Ray - ED: 2 View, Read by ED Physician, Normal, Heart, Mediastinum, Bony Structures, Right Infiltrate and Left Infiltrate (Diffuse interstitial disease consistent with bilateral pneumonia.) Diagnostic Testing: Clinical Impression(s) from Imaging Studies Chest X-Ray 08/13/24 23:54 IMPRESSION: Scattered bilateral airspace opacities which may represent pneumonia and/or mild edema. Electronically Signed: Timo Choudhury DO at 0:39 EDT , Chest x-ray, 2 views, AP and lateral interpreted by myself and the radiologist shows scattered bilateral airspace disease consistent with bilateral pneumonia. I did go over the chest x-ray results with the patient. Discharge Plan Triage Chief Complaint: General Illness ED Provider: Ahmet Bentley Dx/Rx/DC Orders Clinical Impression: Pneumonia, HIV disease Instructions: ED Pneumonia (Adult) Prescriptions: New amoxicillin 500 mg capsule 1,000 mg PO TID 10 Days Qty: 60 0RF No Action medical canabis 1 inh PO TID erythromycin 5 mg/gram (0.5 %) ointment 0.5 inch ophthalmic (eye) TID 5 Days Qty: 3.5 1RF Rx Instructions: Both eyes. acyclovir 400 MG tablet 400 mg PO BID kaveunnyv-rfmwyeyf-dazwmpb ala 50-200-25 mg tablet 1 tab PO QHS Primary Care Provider: Norah Dent Referrals: Norah Dent MD [Primary Care Provider] - As soon as possible Joseph Boles MD [Med Staff - Active Staff] - 1 Day Activity Restrictions/Additional Instructions: Plenty of fluids and rest. Alternate Motrin and Tylenol for fever. Call and follow-up with Dr. Boles your ID physician later today. Return if feeling worse. The antibiotic amoxicillin you will take 1 g 3 times a day for the next 10 days. Print Language: Hungarian Disposition Disposition: Home, Self Care
[2024-08-14] MEDS: AMOXICILLIN 500 MG CAPSULE 1000 MG PO (01:33)
[2024-08-14 01:38] VITALS: BP 129/84; PULSE 87; RESP 16; TEMP 36.7; O2SAT 98
== END 2024-08-14 01:39 | disposition home or self-care (01) ==
PROVIDERS: Emergency Provider Emergency Medicine; PCP Internal Medicine; Visit Provider Emergency Medicine
DX: J18.9 Pneumonia, unspecified organism (principal); Z21 Asymptomatic human immunodeficiency virus [HIV] infection status; B00.9 Herpesviral infection, unspecified; Z79.899 Other long term (current) drug therapy
CPT/HCPCS: 71046; 99282

== ENCOUNTER → 2024-08-18 | Outpatient (CLI) | payer OTHER, SELFPAY | END | disposition home or self-care (01) | LOC: LAB 15:44 | PROVIDERS: PCP Internal Medicine; Referring Provider Internal Medicine Infectious Disease; Visit Provider Internal Medicine Infectious Disease | DX: R51.9 Headache, unspecified (principal) | CPT/HCPCS: 87070; 87205 ==

== ENCOUNTER 2024-08-23 21:24 | Inpatient (IN) | payer OTHER, SELFPAY ==
[2024-08-23 21:25] VITALS: BP 128/76; PULSE 116; RESP 26; TEMP 37.7; O2SAT 88; BMI 28.5
--- NOTE | 2024-08-23 21:41 | CT_ITS ---
INDICATION: Headache EXAMINATION: CT BRAIN - CT Head or Brain W/O Contrast Injection TECHNIQUE: Multiple axial images were obtained of the head without intravenous contrast. A radiation dose optimization technique was used for this scan. IV Contrast dosage and agent: None. RADIATION DOSAGE (If Supplied By Facility): CTDIvol = ( 44.99 ) mGy, DLP = ( 829.85 ) mGycm COMPARISON: No relevant prior examinations for comparison FINDINGS: HEMISPHERES: 1. The cerebral parenchyma, ventricular system, subarachnoid spaces have normal configuration and density. There is a normal gyral pattern. There is normal jovel/white differentiation. No midline shift.. 2. The hemispheric white matter has normal appearance. 3. No intraparenchymal mass, hemorrhage, or acute territorial infarct. CEREBELLUM - BRAINSTEM: The cerebellum, brainstem, basilar and suprasellar cisterns have normal appearance. No Chiari malformation. PITUITARY: Infundibulum and pituitary have normal configuration. Midline structures appear normal. CSF SPACES: Appropriate for age. No hydrocephalus. Basal cisterns are patent. VESSELS: 1. No significant vascular calcifications in the cavernous carotid vessels. 2. No hyperdense vascular signs noted.. ORBITS AND PARANASAL SINUSES: 1. Normal appearance of the bony orbits. Normal appearance of the globes and retrobulbar soft tissues.. 2. Paranasal sinuses are clear. BONY ELEMENTS: Bony elements of the cranial vault, facial skeleton and skull base have normal appearance. SCALP AND SOFT TISSUES: Normal appearance of the soft tissues of the scalp and the visualized face OTHER: None ASPECTS Score for Acute Strokes: 10 CT/Brain/Head without Contrast IMPRESSION: 1. Normal CT examination of brain. 2. No intracranial mass, hemorrhage or acute territorial infarct. 3. No radiographically significant sinus disease.. Electronically Signed: Nam Fitzpatrick MD at 23:19 EST ,
--- NOTE | 2024-08-23 21:41 | EKG12_ITS ---
Test Reason : SOB Blood Pressure : */* mmHG Vent. Rate : 113 BPM Atrial Rate : 113 BPM P-R Int : 144 ms QRS Dur : 124 ms QT Int : 350 ms P-R-T Axes : 19 -1 5 degrees QTcB Int : 480 ms Sinus tachycardia Right bundle branch block Abnormal ECG Confirmed by SELENE ORTIZ, JUDIT ([id number]), fashion editor MIKY MAR ([id number]) on 08/24/2024 10:18:10 AM Referred By: Alec Jessica Confirmed By: JUDIT MORTON MD
--- NOTE | 2024-08-23 21:41 | RAD_ITS ---
We are attempting to reach an attending provider to discuss findings. An addendum with communication details will be sent when the communication is complete. INDICATION: Dyspnea EXAMINATION/TECHNIQUE: X-RAY - XR Chest 2 Views COMPARISON: 08/14/2024 FINDINGS: LIFE-SUPPORT AND LINES: 1. None HEART AND VESSELS: The cardiac silhouette, pulmonary vasculature have normal appearance. No evidence of congestive failure. LUNGS AND PLEURAL SPACES: Bibasilar interstitial infiltrate/pneumonia. No pulmonary mass is noted. There is a RIGHT basilar pneumothorax at the RIGHT CP angle. This measures approximately 2.1 cm. No apical pneumothorax or mediastinal shift. MEDIASTINUM AND HILAR REGIONS: No masses adenopathy noted. No areas of calcification. Visualized upper airway is normal in position. BONY ELEMENTS: No acute bony changes noted. RAD/Chest PA and Lateral IMPRESSION: 1. RIGHT basilar/CP angle pneumothorax measuring 2.1 cm. No mediastinal shift. 2. Bibasilar interstitial infiltrate/pneumonia. 3. No congestive failure. Electronically Signed: Nam Fitzpatrick MD at 22:46 EST ,
--- NOTE | 2024-08-23 21:46 | ED.VIS.DYS ---
HPI History of Present Illness Chief Complaint: Shortness of Breath Informant: patient and spouse/S.O. Onset/Context/Timing Onset: Weeks (1.5) Context: gradual Timing: Continuous Quality: Positive for Dyspnea on exertion Worsened by: Exertion Relieved by: Nothing Associated Symptoms cough, fever, chills and sweats; Negative for rhinorrhea, post nasal drip, ear pain, sore throat, clear sputum, white sputum, yellow sputum or green sputum Chest Pain: Positive for None and Aching Narrative Narrative: Patient presents with shortness of breath that has been getting worse over the past 10 days. Patient was diagnosed with pneumonia on 08/13/2024. Patient was given a prescription for amoxicillin. Patient states he has been taking this with no improvement. Patient admits to a cough but denies any sputum production. Patient admits to fevers up to 102 at home. Patient also admits to some chills and sweats. Patient admits to some pain in his chest. Patient describes it as aching. Patient states his breathing is worse with any activity. Patient also admits to an occipital headache. [facility] Medical History Current every day cannabis vapor product user Wears glasses Excessive bleeding HSV infection HIV disease Home Medications ?Medication ?Instructions ?Recorded ?Last Taken ?Type acyclovir 400 mg tablet 400 mg PO BID herpes 07/28/20 Unknown History bictegravir 50 mg-emtricitabine 1 tab PO QHS HIV 10/11/20 Unknown History 200 mg-tenofovir alafenam 25 mg tablet medical canabis 1 inh PO TID vaporization 10/11/20 Unknown History erythromycin 5 mg/gram (0.5 %) eye 0.5 inch ophthalmic (eye) TID 5 12/02/23 Unknown Rx ointment days #3.5 grams amoxicillin 500 mg capsule 1,000 mg (2 x 500 mg) PO TID 10 08/14/24 Unknown Rx days #60 caps Allergy/AdvReac Type Severity Reaction Status Date / Time No Known Allergies Allergy Verified 08/23/24 21:25 Family History Father Cancer melanoma Colon cancer Hypertension Grandmother Diabetes Aunt Diabetes Other Dementia Surgical History History of appendectomy Social History Smoking Status: Never smoker alcohol intake: current alcohol intake frequency: holidays/special occasions only substance use type: marijuana what type of physical activity do you participate in: other details: active job ROS ROS ED Constitutional Constitutional ED: Reports chills, fever(s) and sweats Eyes Eyes: Denies blurry vision or change in vision ENT ENT ED: Denies rhinorrhea or sore throat Cardiovascular Cardiovascular: Reports chest pain; Denies palpitations Respiratory/Chest Respiratory/Chest: Reports cough and dyspnea Gastrointestinal Gastrointestinal: Denies nausea or vomiting Genitourinary Genitourinary ED: Denies dysuria or hematuria Musculoskeletal Musculoskeletal: Denies back pain or neck pain Integumentary Denies abscess or rash Neurologic Neurologic: Reports headache(s); Denies weakness Allergic/Immunologic Allergic/Immunologic ED: Denies mouth swelling or urticaria EXAM Physical Exam Const Vital Signs: 08/23/24 21:25 08/23/24 22:24 08/23/24 22:24 Temperature 99.9 F H 98.7 F Temperature Source Temporal Oral Pulse Rate 116 H 96 Respiratory Rate 26 H 18 Blood Pressure 128/76 H 137/75 H Blood Pressure Mean 93 95 Pulse Ox 88 94 Oxygen Delivery Method Room Air Nasal Cannula Nasal Cannula Oxygen Flow Rate (L/min) 2 2 08/23/24 23:00 Temperature 98.5 F Temperature Source Oral Pulse Rate 100 Respiratory Rate 19 H Blood Pressure 135/89 H Blood Pressure Mean 104 Pulse Ox 94 Oxygen Delivery Method Nasal Cannula Oxygen Flow Rate (L/min) 2 Positive well nourished and well developed General Appearance ED: well developed and NAD HEENT Reports moist mucous membranes atraumatic Neck supple, no meningeal signs and no JVD Resp normal respiratory effort and clear to auscultation bilaterally Cardio regular rhythm Rate: tachycardic GI non-tender and non-distended Palpation: soft Extremity normal to inspection General Extremety ED: Negative for edema or tenderness General Extremity: Negative for edema Neuro oriented x3, CN's II-XII intact bilaterally and no sensory deficits noted [place] Coma Scale: document GCS findings Spontaneous Obeys Commands Oriented 15 Sensorium / Orientation: alert Speech: speech normal Motor Exam: strength 5/5 throughout Psych mental status grossly normal MDM MDM MDM Narrative Medical decision making narrative: Differential diagnosis includes pneumonia, reactive airway disease, viral illness, sepsis, cardiac dysrhythmia, cardiac ischemia, intracranial bleeding, coagulopathy, electrolyte abnormality, and dehydration. EKG will be obtained to assess for cardiac dysrhythmia and cardiac ischemia. Chest x-ray will be obtained to assess for pneumonia and pneumothorax. CT scan of the brain will be obtained to assess for intracranial bleeding and headache. CBC will be obtained to assess for leukocytosis and anemia. Comprehensive metabolic profile will be obtained to assess for electrolyte abnormality, renal function, and hepatic function. Serum lactate will be obtained to assess for sepsis. PT with INR and PTT will be obtained to assess for coagulopathy. High-sensitivity troponin will be obtained to assess for cardiac ischemia. COVID-19, influenza, and RSV PCR will be obtained to assess for viral illness. Blood culture will be obtained to assess for sepsis. History & Record Review Additional record(s) reviewed:: Prior ED visit and Prior labs Lab Data Lab results narrative: CBC was reviewed. There is a mild anemia with a hemoglobin of 11.7 and hematocrit of 36.4. Platelets were elevated at 984. Comprehensive metabolic profile was reviewed. Glucose was slightly elevated at 147. AST was slightly elevated at 65 and ALT was slightly elevated at 138. Alkaline phosphatase was slightly elevated at 149. BUN was slightly elevated at 27. The remainder was within normal limits. PT with INR and PTT were reviewed and were within normal limits. High-sensitivity troponin was reviewed and was normal at 3. Serum lactate was reviewed and was normal at 2.0. COVID-19 PCR was reviewed and was negative. Influenza PCR was reviewed and was negative for influenza A and influenza B. RSV PCR was reviewed and was negative. I did review previous labs from 07/01/2024 which showed a normal CD4 count and viral load. Labs: Laboratory Results - last 24 hr 08/23/24 21:55 WBC 10.9 RBC 4.23 L Hgb 11.7 L Hct 36.4 L MCV 86.1 MCH 27.7 MCHC 32.1 RDW Std Deviation 41.5 RDW Coeff of Romel 13.2 Plt Count 984 H* MPV 8.8 Immature Gran % (Auto) 1.700 H Neut % (Auto) 70.5 H Lymph % (Auto) 20.8 Dare % (Auto) 3.9 Eos % (Auto) 2.5 Baso % (Auto) 0.6 Absolute Neuts (auto) 7.7 Absolute Lymphs (auto) 2.26 Nucleated RBC % 0 Diff Path Review May foll Platelet Estimate MKD INC PT 14.6 INR 1.1 APTT 32.6 Sodium 139 Potassium 3.9 Chloride 108 H Carbon Dioxide 24.0 Anion Gap 7 BUN 27 H Creatinine 1.01 Estim Creat Clear Calc 101.50 Est GFR (MDRD) Af Amer 99 Est GFR (MDRD) Non-Af 82 BUN/Creatinine Ratio 26.7 H Glucose 147 H Lactic Acid 2.0 Calcium 8.5 Total Bilirubin 0.20 AST 65 H ALT 138 H Alkaline Phosphatase 149 H Troponin I High Sens 3 Total Protein 7.2 Albumin 2.2 L Globulin 5.0 H Albumin/Globulin Ratio 0.4 L Radiography Chest X-Ray - ED: 2 View, Read by ED Physician, Read by Radiologist, Right Infiltrate and Left Infiltrate Diagnostic Testing: Clinical Impression(s) from Imaging Studies Brain CT 08/23/24 21:41 IMPRESSION: 1. Normal CT examination of brain. 2. No intracranial mass, hemorrhage or acute territorial infarct. 3. No radiographically significant sinus disease.. Electronically Signed: Nam Fitzpatrick MD at 23:19 EST , Chest X-Ray 08/23/24 21:41 IMPRESSION: 1. RIGHT basilar/CP angle pneumothorax measuring 2.1 cm. No mediastinal shift. 2. Bibasilar interstitial infiltrate/pneumonia. 3. No congestive failure. Electronically Signed: Nam Fitzpatrick MD at 22:46 EST , ADDENDUM: 08/23/24 9341 IMPRESSION: 1. RIGHT basilar/CP angle pneumothorax measuring 2.1 cm. No mediastinal shift. 2. Bibasilar interstitial infiltrate/pneumonia. 3. No congestive failure. N.B. : The above Results were Read Back by Nam Fitzpatrick MD to Alec Jessica DO, and understanding confirmed on 08/23/2024 22:47:57 (ET). Electronically Signed: Nam Fitzpatrick MD at 22:46 EST , PA and lateral chest x-ray was obtained. There are 2 views. On my independent interpretation, there are bilateral infiltrates. There is a small right basilar pneumothorax measuring 2.1 cm. There is no shift. This does not extend up to the apex. Radiologist also interpreted the x-rays and agrees. CT scan of the brain was obtained. There is no acute intracranial abnormality. This was interpreted by the radiologist and was also independently reviewed by myself. EKG Initial EKG: Attestation: I personally reviewed and interpreted this EKG as follows: Interpretation: Sinus Tachycardia (113), RBBB and Non-Specific ST Changes Comments: EKG was obtained. On my independent interpretation, shows sinus tachycardia with a rate of 113. WA interval was normal at 144 ms. QRS interval was slightly prolonged at 124 ms. QTc interval was borderline at 480 ms. Pierson was normal at -1. There is a right bundle branch block pattern noted. There are no acute ST or T wave changes noted. There are no prior EKGs available for comparison. Prior EKG tracings: not available for review Prior: No Prior Management Discussion w/another healthcare provider: Hospitalist and Radiologist Treatment and Re-Evaluation :: Patient was given a dose of Tylenol here. Patient was given IV fluids. Patient was started on Zosyn and vancomycin. Patient was placed on oxygen. Patient was advised of his findings. Patient was advised of need for hospitalization. Case was discussed with hospitalist. He will admit the patient to PCU. Patient understood and was agreeable with the plan. All questions were answered. Discharge Plan Dx/Rx/DC Orders Clinical Impression: Pneumonia, HIV disease, Hypoxia, Sepsis, Pneumothorax Disposition Disposition: [facility]
[2024-08-23] MEDS: Acetaminophen 500 MG Tablet 1000 MG PO (21:53)
[2024-08-23 22:08] LABS: Absolute Lymphocyte Count 2.26 X10^3/uL (0.83-4.51); Absolute Neutrophil Count 7.7 X10^3/uL (2.0-7.7); Basophil# 0.07 X10^3/uL; Basophil% 0.6 % (0-1); Eosinophil# 0.27 X10^3/uL; Eosinophils% 2.5 % (0-5); Hematocrit 36.4 % (40-54); Hemoglobin 11.7 g/dL (13.0-16.5); Lymphocyte # 2.26 X10^3/ul (0.83-4.51); Lymphocyte % 20.8 % (19-41); Mean Corp Hgb Conc 32.1 g/dL (32-36); Mean Corpuscular Hgb 27.7 pg (27.0-32.0); Mean Corpuscular Volume 86.1 fL (80-94); Mean Platelet Vol. 8.8 fl (6.2-12.0); Monocyte# 0.42 X10^3/uL; Monocyte% 3.9 % (0-10); NRBC Flagged by Analyzer 0 % (0-5); Neutrophil # 7.65 X10^3/uL (2.7-7.7); Neutrophil % 70.5 % (47-70); POSITIVE COUNT YES; RBC Distribution Width CV 13.2 % (11.6-14.6); RBC Distribution Width SD 41.5 fl (35.1-43.9); Red Blood Count 4.23 M/mm3 (4.6-6.2); White Blood Count 10.9 K/mm3 (4.4-11.0)
[2024-08-23 22:16] LABS: Differential Indicated SCAN CRITERIA MET; International Normalized Ratio 1.1; Platelet Count 984 K/mm3 (150-450); Prothrombin Time (Protime)PT. 14.6 SECONDS (11.7-14.9)
[2024-08-23 22:17] LABS: Partial Thromboplast Time 32.6 Seconds (24.1-36.2)
[2024-08-23 22:24] VITALS: BP 137/75; PULSE 96; RESP 18; TEMP 37.1; O2SAT 94
[2024-08-23 22:26] LABS: ALB/GLOB Ratio 0.4 RATIO (0.9-2.4); AST(SGOT) 65 U/L (15-37); Alanine Aminotransfer ALT/SGPT 138 U/L (16-61); Albumin, Serum 2.2 g/dL (3.2-5.0); Alkaline Phosphatase 149 U/L (45-117); Anion Gap 7 (5-15); BUN 27 mg/dL (7-18); BUN/Creat Ratio 26.7 RATIO (10-20); Calcium,Total 8.5 mg/dL (8.5-10.1); Chloride 108 mmol/L (98-107); Creatinine, Serum 1.01 mg/dL (0.70-1.30); EST Glomerular Filtration Rate 82 mL/min (>60); Est Glom Filt Rate - Afr Amer 99 mL/min (>60); Glucose 147 mg/dL (74-106); Potassium 3.9 mmol/L (3.5-5.1); Protein, Total 7.2 g/dL (6.4-8.2); Sodium Level 139 mmol/L (136-145); Troponin-I HS 3 pg/mL (3.0-78.0)
[2024-08-23 22:52] LABS: Platelet Estimate MKD INC (ADEQ)
[2024-08-23 23:00] VITALS: BP 135/89; PULSE 100; RESP 19; TEMP 36.9; O2SAT 94
[2024-08-23] MEDS: 0.9% Normal Saline (1000mL) 1,000 ML 1000 ML IV (23:06)
[2024-08-23] MEDS: Piperacil/Tazobactam 4.5 GM in 0.9% Normal Saline (100mL MB+) 100 ML IV (23:09)
--- NOTE | 2024-08-23 23:16 | HP.PCM.HOS_ITS ---
HPI - General General Date of Admission: 08/24/24 Date of Service: 08/23/24 Chief Complaint: Fever and SOB. HPI Narrative SOL ESQUIVEL, is a 54 M with a past medical history of hyperlipidemia, overweight; with BMI of 28.6 this admission, history of insulin resistance, HIV infection; HAART with most recent viral load ~20 followed by [facility] of infectious disease, history of HSV; on Acyclovir, history of syphilis; s/p treatment, history of cecal polyp; s/p snare upon colonoscopy (2021), history of appendectomy, cannabis vapor product user and history of recently ER evaluation here on August 13, 2024 for a 3 day history of a lower respiratory infection with chills, night sweats and blood tinged sputum with CXR positive for diffuse interstitial infiltrate consistent with Pneumonia and he was then started on Amoxicillin 1g PO TID for 10 days who now re-presents to [facility] ER complaining of fever up to 102 degrees Fahrenheit and worsening SOB. He also admits to an occipital headache with nonproductive cough and chills, sweats and aching chest pain with increasing BELLAMY. In the ER he was noted to have a low-grade fever of 99.9 degrees Fahrenheit with Sinus Tachycardia of 116 bpm present on admission with a CXR positive for an ~2.1 cm Right Basilar Pneumothorax along with persistent bibasilar infiltrates consistent with Pneumonia complicated by Left-shift of 1.7% with 70.5% PMNs concerning for Sepsis with clinical evidence of Acute Respiratory Insufficiency in addition to Severe Thrombocytosis of 984K present on admission (298K on last check 06/2024) as suspected to be due to acute phase reactant compounded by laboratory evidence of Dehydration with BUN/creatinine ratio of 26.7 present on admission with Hypoalbuminemia of 2.2 g/dL present on admission concerning for Protein-Calorie Malnutrition and he was then admitted to the ICU for ongoing care for a stay that is expected to extend beyond 2 midnights. [facility] Medical History (Updated 08/24/24 @ 06:[address] Sascha Rodriguez DO) Current every day cannabis vapor product user Wears glasses Excessive bleeding HSV infection HIV disease Home Medications ?Medication ?Instructions ?Recorded ?Last Taken ?Type acyclovir 400 mg tablet 400 mg PO BID herpes 07/28/20 Unknown History bictegravir 50 mg-emtricitabine 1 tab PO QHS HIV 10/11/20 Unknown History 200 mg-tenofovir alafenam 25 mg tablet amoxicillin 500 mg capsule 1,000 mg (2 x 500 mg) PO TID 10 08/14/24 08/23/24 Rx days #60 caps Allergy/AdvReac Type Severity Reaction Status Date / Time No Known Allergies Allergy Verified 08/23/24 21:25 Family History Father Cancer melanoma Colon cancer Hypertension Grandmother Diabetes Aunt Diabetes Other Dementia Surgical History History of appendectomy Social History Smoking Status: Never smoker alcohol intake: current alcohol intake frequency: holidays/special occasions only substance use type: marijuana what type of physical activity do you participate in: other details: active job ROS ROS Narrative Review of Systems: Constitutional: Patient admits to fever, chills and sweats as per HPI. Eyes: Patient denies changes in vision or discharge from eyes. ENT: Patient denies runny nose, sore throat or ear pain. Resp: Patient admits to BELLAMY and nonproductive cough as per HPI. CV: Patient admits to aching chest pain but he denies palpitations or heart racing. GI: Patient denies abdominal pain, nausea, vomiting, diarrhea or constipation. : Patient denies dysuria or hematuria. MSK: Patient denies arthralgias or myalgias. Skin: Patient denies rash, abscess or jaundice. Psych: Patient denies symptoms of uncontrolled depression or anxiety. Neuro: Patient admits to occipital headache as per HPI. He denies paresthesias or focal neurologic deficits. Allergy: Patient denies lip swelling, tongue swelling or urticaria. Hematology: Patient denies easy bleeding or easy bruisability. Endocrinology: Patient denies polyuria, polydipsia and polyphagia. 14 point ROS otherwise negative except for positives noted above in HPI. Vital Signs Vital Signs Vital Signs: 08/23/24 21:25 08/23/24 22:24 08/23/24 22:24 Temperature 99.9 F H 98.7 F Temperature Source Temporal Oral Pulse Rate 116 H 96 Respiratory Rate 26 H 18 Blood Pressure 128/76 H 137/75 H Blood Pressure Mean 93 95 Pulse Ox 88 94 Oxygen Delivery Method Room Air Nasal Cannula Nasal Cannula Oxygen Flow Rate (L/min) 2 2 Weight Weight: 210 lb 15.718 oz Body Mass Index (BMI) 28.5 Physical Exam Const alert, oriented x3, no apparent distress and average body habitus General Appearance: cooperative HEENT normocephalic, head/scalp atraumatic, hearing grossly normal bilaterally and moist oral mucous membranes Eyes PERRL and EOMs intact bilaterally Neck no lymphadenopathy and supple Resp Resp Narrative: Diminished breath sounds throughout. Cardio regular rate and regular rhythm GI normal to inspection, nondistended, normoactive bowel sounds, soft to palpation, non-tender and non-distended Extremity normal to inspection, full ROM and no clubbing, cyanosis or edema Skin Skin Narrative: Patient has no evidence of rash, abscess or jaundice. Neuro oriented x3, CN's II-XII intact bilaterally, moves all extremities and no focal motor deficits Sensorium / Orientation: awake, alert, oriented to person, oriented to place and oriented to time Speech: speech normal Psych affect normal Results Medical Records Data Attestation: I reviewed the patient's medical records Lab / Micro Data Attestation: I reviewed the patient's lab results. 08/23/24 21:55 08/23/24 21:55 Labs: Laboratory Results - last 24 hr 08/23/24 21:55: WBC 10.9, RBC 4.23 L, Hgb 11.7 L, Hct 36.4 L, MCV 86.1, MCH 27.7, MCHC 32.1, RDW Std Deviation 41.5, RDW Coeff of Romel 13.2, Plt Count 984 H* , MPV 8.8, Immature Gran % (Auto) 1.700 H, Neut % (Auto) 70.5 H, Lymph % (Auto) 20.8, Evans % (Auto) 3.9, Eos % (Auto) 2.5, Baso % (Auto) 0.6, Absolute Neuts (auto) 7.7, Absolute Lymphs (auto) 2.26, Nucleated RBC % 0, Diff Path Review February, Platelet Estimate MKD INC, PT 14.6, INR 1.1, APTT 32.6, Sodium 139, Potassium 3.9, Chloride 108 H, Carbon Dioxide 24.0, Anion Gap 7, BUN 27 H, Creatinine 1.01, Estim Creat Clear Calc 101.50, Est GFR (MDRD) Af Amer 99, Est GFR (MDRD) Non-Af 82, BUN/Creatinine Ratio 26.7 H, Glucose 147 H, Lactic Acid 2.0, Calcium 8.5, Total Bilirubin 0.20, AST 65 H, ALT 138 H, Alkaline Phosphatase 149 H, Troponin I High Sens 3, Total Protein 7.2, Albumin 2.2 L, G lobulin 5.0 H, Albumin/Globulin Ratio 0.4 L Micro: Microbiology 08/23/24 21:56 Mucosa - Nose SARS-CoV-2, Influenza & RSV (PCR) - Final Imaging Radiology Impression Chest X-Ray 08/23/24 21:41 IMPRESSION: 1. RIGHT basilar/CP angle pneumothorax measuring 2.1 cm. No mediastinal shift. 2. Bibasilar interstitial infiltrate/pneumonia. 3. No congestive failure. Electronically Signed: Nam Fitzpatrick MD at 22:46 EST , ADDENDUM: 08/23/24 2254 IMPRESSION: 1. RIGHT basilar/CP angle pneumothorax measuring 2.1 cm. No mediastinal shift. 2. Bibasilar interstitial infiltrate/pneumonia. 3. No congestive failure. N.B. : The above Results were Read Back by Nam Fitzpatrick MD to Alec Jessica DO, and understanding confirmed on 08/23/2024 22:47:57 (ET). Electronically Signed: Nam Fitzpatrick MD at 22:46 EST , Assessment & Plan Assessment/Plan (1) Sepsis: QUALIFIERS: Sepsis acute organ dysfunction status: without acute organ dysfunction Sepsis type: sepsis due to unspecified organism Qualified Code(s): A41.9 - Sepsis, unspecified organism (2) Pneumonia: QUALIFIERS: Laterality: bilateral Lung location: unspecified part of lung Pneumonia type: due to unspecified organism Qualified Code(s): J18.9 - Pneumonia, unspecified organism (3) Pneumothorax on right: (4) Respiratory insufficiency: (5) Reactive thrombocytosis: (6) HIV disease: (7) Current every day cannabis vapor product user: (8) HSV infection: (9) Overweight (BMI 25.0-29.9): (10) Cannabis use disorder, mild, abuse: PLAN: Plan 1. Sepsis due to Bilateral Pneumonia that Failed Outpatient Antibiotic Treatment on oral Amoxil - Admit to PCU for treatment under the Sepsis protocol. Continue IV Vancomycin and IV Zosyn begun in the ER and await culture and sensitivity data. Check urinary antigens for Streptococcus pneumonia and Legionella. Give Tylenol prn for [id number] (level 1-5/10) pain or fever. Give Morphine IV prn for severe (level 6-10/10) pain. 2. ~2.1 cm Right Basilar Pneumothorax complicating #1 - Recheck CXR in AM to follow. Finally, we will consult engineering mathematician to see this patient on-rounds in the AM for further recommendations with help appreciated in advance. 3. Acute Respiratory Insufficiency compounding #1 & #2 - Wean supplemental oxygen as tolerated. 4. Severe Thrombocytosis of 984K present on admission (298K on last check 06/2024) as suspected to be due to acute phase reactant arising from #1 - #3 - Continue supportive care as outlined and check daily CBC to monitor trend. 5. HIV infection; HAART with most recent viral load ~20 followed by Ramana of infectious disease adding to the medical complexity of #1 - #4 - Continue current regimen. Finally, we will consult ID to see patient this admission. 6. Cannabis Vaping user adding to the burden of disease outlined from #1 - #5 - Cannabis vaping cessation was strongly encouraged but patient states it is medically prescribed. 7. History of HSV; on Acyclovir - Continue Acyclovir as previous. 8. History of Syphilis; s/p treatment - Noted. 9. Overweight; with BMI of 28.6 this admission - Weight loss will be recommended. Check TSH. This complicates his case and may hamper recovery. 10. Hyperlipidemia - Noted. Check Lipid Profile. 11. History of insulin resistance - Noted. Check HgbA1c. 12. History of cecal polyp; s/p snare upon colonoscopy (2021) - Noted. 13. History of appendectomy - Noted. 14. DVT/GI prophylaxis - Lovenox 40 mg sq daily plus SCD's. Protonix 40 mg PO daily. Total time: Approximately (but not less than) 75 minutes. Sepsis Attestation Sepsis Alert: Yes Sepsis Attestation: Agree w/Sepsis Date exam was performed: 08/24/24 Time exam was performed: 00:15 Possible Source of Sepsis: Pulmonary Fluid Resuscitation Fluid resuscitation indicated?: Yes Fluid Resuscitation ordered: 30 ml/kg fluid bolus ordered Amount of fluid ordered: 2 Sepsis Note Date exam was performed: 08/24/24 Time exam was performed: 04:15 Sepsis Attestation: Sepsis re-evaluation was performed Response to fluids: Fluid responsive hypotension Charges/Coding Visit Charges Inpatient E&M: 78359 Init Hosp L3
[2024-08-23 23:57] VITALS: BP 130/89; PULSE 96; RESP 22; O2SAT 92
[2024-08-23 23:59] VITALS: O2SAT 85
[2024-08-24] MEDS: Vancomycin HCl 2,000 MG in 0.9% Normal Saline (500mL Bag) 500 ML 250 MG IV (00:21)
[2024-08-24 00:24] VITALS: BP 163/97; PULSE 100; RESP 20; TEMP 36.8; O2SAT 94
[2024-08-24 00:54] LABS: Lactic Acid 1.3 mmol/L (0.4-1.9)
[2024-08-24 01:07] VITALS: BP 145/91; PULSE 94; RESP 18; TEMP 36.6; O2SAT 94; BMI 28.5
[2024-08-24] MEDS: 0.9% Normal Saline (1000mL) 1,000 ML 150 ML IV ×2 (01:34→08:11)
--- NOTE | 2024-08-24 01:46 | PCM.RX.CS ---
Consult Antibiotic Management Pharmacy has been consulted to manage selected antibiotic: Vancomycin Type of Intervention Type of Consult: New start Suspected Infection Suspected Infection: Sepsis and Pneumonia Labs Labs: Sodium 139 mmol/L (136-145) 08/23/24 21:55 Potassium 3.9 mmol/L (3.5-5.1) 08/23/24 21:55 Chloride 108 mmol/L (98-107) H 08/23/24 21:55 Carbon Dioxide 24.0 mmol/L (21.0-32.0) 08/23/24 21:55 Anion Gap 7 (5-15) 08/23/24 21:55 BUN 27 mg/dL (7-18) H 08/23/24 21:55 Creatinine 1.01 mg/dL (0.70-1.30) 08/23/24 21:55 Est GFR (MDRD) Af Amer 99 mL/min (>60) 08/23/24 21:55 Est GFR (MDRD) Non-Af 82 mL/min (>60) 08/23/24 21:55 BUN/Creatinine Ratio 26.7 RATIO (10-20) H 08/23/24 21:55 Glucose 147 mg/dL (74-106) H 08/23/24 21:55 Microbiology Microbiology: Microbiology 08/24/24 00:27 Urine, Clean Catch Legionella Antigen - Final 08/24/24 00:27 Urine, Clean Catch Streptococcus pneumoniae Antigen (M - Final 08/23/24 21:56 Mucosa - Nose SARS-CoV-2, Influenza & RSV (PCR) - Final Dosing Weight Weight used for dosin.4 kg Estimated Creatinine Clearance Estimated Creatinine Clearance: 102 Goal Trough Goal Trough: 15-20 mcg/mL Pharmacy Plan for Drug Dosing Pharmacy Plan for Drug Dosing: Pharmacy Service will continue to monitor and adjust dosing as required. Follow-Up Labs Follow-Up Labs: Trough: Vancomycin Date/Time Labs Ordered Labs to be done on [date and time ordered]: 08/25/24 @0000
[2024-08-24 02:03] LABS: Reflex Lactate? Y
[2024-08-24 04:00] VITALS: BP 138/87; PULSE 85; RESP 18; TEMP 36.8; O2SAT 92
[2024-08-24] MEDS: Piperacil/Tazobactam 3.375 GM in 0.9% Normal Saline (50mL MB+) 50 ML IV ×3 (05:51→21:04)
--- NOTE | 2024-08-24 05:55 | RAD_ITS ---
EXAM: XR CHEST, 1 VIEW CLINICAL INDICATION: Bilateral PNA with Right Basal PTX. TECHNIQUE: Frontal view of the chest. COMPARISON: Previous chest radiograph of 08/23/2024. FINDINGS: LUNGS AND PLEURAL SPACES: Pneumothorax persist at the right lung base, within the right lateral costophrenic angle, and extending into the minor fissure and along the right hemidiaphragm; the basilar component of this pneumothorax has decreased in size, with 11 mm pleural separation at the right lung base as compared 21 mm on the prior study. A small portion of the pneumothorax has migrated to the right apex where a pleural line is now visualized, with 13 mm pleural separation at the right apex. There is no associated mediastinal shift. Moderate patchy airspace disease is again noted within the mid to lower lungs, not significant changed. No pleural effusion is seen. HEART: Heart size is upper normal with normal pulmonary vasculature. MEDIASTINUM: Unremarkable. No mediastinal shift. BONES/JOINTS: No acute osseous abnormality. SOFT TISSUES: Unremarkable. No soft tissue emphysema. RAD/Chest 1 View (Portable) IMPRESSION: Right pneumothorax again noted, smaller at the lung base but with extension to the right apex since the study of one day ago; the overall size of the pneumothorax is probably unchanged. No associated mediastinal shift. Stable pneumonia within the mid to lower lungs. Electronically Signed: Negrito Malloy MD at 7:54 EST ,
[2024-08-24 06:27] LABS: Cholesterol 162 mg/dL (200); High Density Lipoprotein 26 mg/dL; Triglycerides 109 mg/dL; Very Low Density Lipoprotein 22 mg/dL (5-40)
[2024-08-24 08:08] VITALS: BP 138/81; PULSE 78; RESP 18; TEMP 36.6; O2SAT 94
[2024-08-24] MEDS: Pantoprazole Sodium 40 MG Tablet PO (08:15)
[2024-08-24] MEDS: Ascorbic Acid 500 MG Tablet 1000 MG PO ×2 (08:16→17:24)
[2024-08-24] MEDS: Acyclovir 200 MG Capsule 400 MG PO ×2 (08:16→21:08)
[2024-08-24] MEDS: Cholecalciferol (Vit D3) 125 MCG CAPSULE (5,000 UNITS) PO (08:16)
[2024-08-24] MEDS: Zinc Sulfate 50 mg zinc (220 mg) ORAL capsule PO (08:16)
[2024-08-24] MEDS: Lactobacillis Acidophilus 1 CAP PO ×4 (08:16→21:08)
[2024-08-24] MEDS: Enoxaparin 40 MG/0.4 ML Syringe SC (08:16)
--- NOTE | 2024-08-24 09:35 | CASEMGMT ---
JOSEFINA RESENDEZ Assessment: Face to Face with pt for initial transition planning/care coordination assessment. JOSEFINA RESENDEZ introduced self and role at [facility], pt voices understanding and consents to assessment. Pt is A&O x4 and answers all questions appropriately at this time. Pt lying in bed in no distress. Care providers, pharmacy, and demographics verified/updated. Strata: 1 Admitting Dx: Sepsis, Bilateral Pneumonia, R Basal PTX PCP: Filipe Specialists: TATE Boles. Preferred Pharmacy: [facility] Insurance: [employer] Prescription Benefit: yes LNOK: Zachariah, . Living Arrangements: Pt lives with father in the basement, 12 steps to enter. ADLs: Pt reports I with ADLs and IADLs. Transportation: Pt drives self and denies concerns with transportation. DME: Denies HHC/SNF: Denies Hx of. Pt reports does not use O2 at home. JOSEFINA RESENDEZ provided list of local O2 providers covered by pt insurance, pt chose [facility] for O2 needs if required at time of DC. Pt reports medical marijuana use. Denies tobacco use, reports occasional alcohol use. Pt states no concerns with going home at time of dc. Pt states no further concerns/needs. CM to follow. Advised pt to ask CM if any further question/concerns/needs arise, voices understanding. Pt Goal: Home Plan: Home with family support. Follow ID and for O2 needs. Leigh ROCHA CM
[2024-08-24] MEDS: Vancomycin HCl 1,250 MG in 0.9% Normal Saline (250mL Bag) 250 ML 167 MG IV ×2 (09:59→17:23)
[2024-08-24 10:19] LABS: Hemoglobin A1c 6.5 % (3.8-5.6)
--- NOTE | 2024-08-24 11:48 | PN.HOSP_ITS ---
Subjective Subjective doing well, no issues overnight. Resting comfortably requiring 3 L nasal cannula Objective Data Objective Data Vital Signs: Vital Signs Temp Pulse Resp BP Pulse Ox O2 Del Method O2 Flow Rate 98 F 78 18 138/81 H 94 Nasal Cannula 3 08/24/24 08:08 08/24/24 08:08 08/24/24 08:08 08/24/24 08:08 08/24/24 08:08 08/24/24 08:10 08/24/24 08:10 Oxygen Flow Rate (L/min) 3 Oxygen Delivery Method Nasal Cannula Weight: 210 lb 5.136 oz Body Mass Index (BMI) 28.5 Intake & Output: Intake and Output for Last 24 Hours 08/23/24 08/24/24 08/25/24 03:59 03:59 03:59 Intake Total 1640 / 1640 2217.5 / 2217.5 Output Total 1000 / 1000 Balance 1640 / 1640 1217.5 / 1217.5 Lab / Micro Data 08/23/24 21:55 08/23/24 21:55 Labs: Laboratory Results - last 24 hr 08/23/24 21:55: WBC 10.9, RBC 4.23 L, Hgb 11.7 L, Hct 36.4 L, MCV 86.1, MCH 27.7, MCHC 32.1, RDW Std Deviation 41.5, RDW Coeff of Romel 13.2, Plt Count 984 H* , MPV 8.8, Immature Gran % (Auto) 1.700 H, Neut % (Auto) 70.5 H, Lymph % (Auto) 20.8, [place] % (Auto) 3.9, Eos % (Auto) 2.5, Baso % (Auto) 0.6, Absolute Neuts (auto) 7.7, Absolute Lymphs (auto) 2.26, Nucleated RBC % 0, Diff Path Review February foll, Platelet Estimate MKD INC, PT 14.6, INR 1.1, APTT 32.6, Sodium 139, Potassium 3.9, Chloride 108 H, Carbon Dioxide 24.0, Anion Gap 7, BUN 27 H, Creatinine 1.01, Estim Creat Clear Calc 101.50, Est GFR (MDRD) Af Amer 99, Est GFR (MDRD) Non-Af 82, BUN/Creatinine Ratio 26.7 H, Glucose 147 H, Lactic Acid 2.0, Calcium 8.5, Total Bilirubin 0.20, AST 65 H, ALT 138 H, Alkaline Phosphatase 149 H, Troponin I High Sens 3, Total Protein 7.2, Albumin 2.2 L, G lobulin 5.0 H, Albumin/Globulin Ratio 0.4 L 08/24/24 00:24: Lactic Acid 1.3 08/24/24 05:15: Hemoglobin A1c 6.5 H, Triglycerides 109, Cholesterol 162, LDL Cholesterol 114, VLDL Cholesterol 22, HDL Cholesterol 26 L, TSH 1.050 Micro: Microbiology 08/24/24 03:14 Mucosa - Nasopharyngeal Respiratory Panel (PCR) - Final 08/24/24 00:27 Urine, Clean Catch Legionella Antigen - Final 08/24/24 00:27 Urine, Clean Catch Streptococcus pneumoniae Antigen (M - Final 08/23/24 21:56 Mucosa - Nose SARS-CoV-2, Influenza & RSV (PCR) - Final Radiography Diagnostic Testing: Radiology Impression Brain CT 08/23/24 21:41 IMPRESSION: 1. Normal CT examination of brain. 2. No intracranial mass, hemorrhage or acute territorial infarct. 3. No radiographically significant sinus disease.. Electronically Signed: Nam Fitzpatrick MD at 23:19 EST , Chest X-Ray 08/23/24 21:41 IMPRESSION: 1. RIGHT basilar/CP angle pneumothorax measuring 2.1 cm. No mediastinal shift. 2. Bibasilar interstitial infiltrate/pneumonia. 3. No congestive failure. Electronically Signed: Nam Fitzpatrick MD at 22:46 EST , ADDENDUM: 08/23/24 1256 IMPRESSION: 1. RIGHT basilar/CP angle pneumothorax measuring 2.1 cm. No mediastinal shift. 2. Bibasilar interstitial infiltrate/pneumonia. 3. No congestive failure. N.B. : The above Results were Read Back by Nam Fitzpatrick MD to Alec Jessica DO, and understanding confirmed on 08/23/2024 22:47:57 (ET). Electronically Signed: Nam Fitzpatrick MD at 22:46 EST , Chest X-Ray 08/24/24 05:55 IMPRESSION: Right pneumothorax again noted, smaller at the lung base but with extension to the right apex since the study of one day ago; the overall size of the pneumothorax is probably unchanged. No associated mediastinal shift. Stable pneumonia within the mid to lower lungs. Electronically Signed: Negrito Malloy MD at 7:54 EST , Physical Exam Narrative General: Alert, Oriented x3, Cooperative, No apparent distress HEENT: Atraumatic, PERRLA, EOMI, Normocephalic Oral: Moist Mucosa Neck: Supple, No JVD Lungs: Diminished, Normal air movement, No rhonchi, No wheeze, No rales Cardiovascular: Regular rate, Regular Rhythm, Normal S1, Normal S2, No murmurs Abdomen: Soft, Non Tender, Non-Distended, No Hepato-splenomegaly Extremities: No edema, Capillary Refill Less than 3 Seconds Skin: No rashes, No breakdown Musculoskeletal: No Tenderness to Palpation of Joints or Extremities Neurological: No focal neurological deficits, Motor Exam 5/5 strength throughout, Sensory exam intact to light touch and pain Psych/Mental Status: Normal Affect, Appropriate Assessment & Plan Assessment/Plan (1) Pneumonia: QUALIFIERS: Pneumonia type: due to unspecified organism L aterality: bilateral Lung location: unspecified part of lung Qualified Code(s): J18.9 - Pneumonia, unspecified organism (2) Pneumothorax on right: (3) Respiratory insufficiency: (4) Reactive thrombocytosis: PLAN: Plan 1. Bilateral pneumonia failing outpatient treatment with 2.1 cm right basilar pneumothorax with respiratory insufficiency/HIV ? Appreciate pulmonology and ID assistance ? Continue with broad-spectrum antibiotics ? Continue with his HIV medications ? Chest x-ray today demonstrates some improvement in his pneumothorax ? Reactive thrombocytosis ? Continue with herpes prophylaxis with acyclovir DVT: Lovenox Charges/Coding Visit Charges Inpatient E&M: 59101 Subs Hosp L2
--- NOTE | 2024-08-24 11:54 | EX.PCM.CONCC ---
Assessment & Plan Assessment/Plan (1) Pneumothorax on right: (2) Sepsis: QUALIFIERS: Sepsis acute organ dysfunction status: without acute organ dysfunction Sepsis type: sepsis due to unspecified organism Qualified Code(s): A41.9 - Sepsis, unspecified organism (3) Hypoxia: PLAN: Plan RECOMMENDATIONS: 1. Supplemental oxygen at 3 L/min. 2. Obtain follow-up chest x-ray tomorrow morning (or sooner if the patient becomes more symptomatic) 3. Antimicrobials per ID recommendations. 4. If pneumothorax enlarges (greater than 2 cm of pleural separation) consider tube thoracotomy 5. Encourage incentive spirometer use and mobilize patient as tolerated. IMPRESSIONS: 1. Shortness of breath and hypoxemia Appears to be secondary to a combination of progressive multifocal airspace disease coupled with small right spontaneous pneumothorax, without clear precipitating etiology. The patient is stable from a respiratory perspective. He remains on antimicrobials, which are being managed by infectious diseases. The patient's pneumothorax appears smaller on chest x-ray from this morning. Therefore, we will plan to continue current conservative care with supplemental O2 and plans for repeat chest imaging tomorrow morning. If the patient's pneumothorax enlarges or the patient becomes more symptomatic, would then consider tube thoracotomy. 2. History of HIV on HAART/reactive thrombocytosis/chronic cannabis use Complicates care, management, recovery and prognosis. Continue supportive measures as noted above. Encourage incentive spirometer use and mobilize patient as tolerated. This note was generated with [email or web address] dictation software. It may contain incorrect words, spelling, and punctuation that were not noted in checking the note before signing. HPI Consult Data Date of Consult: 08/24/24 HPI Narrative Reason for Consultation: Pneumonia HPI Narrative: The patient is a 54-year-old male, with a history as outlined below, who presented to the emergency department on August 23 with exertional shortness of breath. The patient was evaluated in the emergency department on August 14 with URI symptoms. Chest imaging completed at that time demonstrated bilateral airspace disease. The patient was discharged home on amoxicillin to complete 10 days. The patient has a known history of HIV and is currently followed by infectious diseases on an outpatient basis. The patient denies any known pulmonary history. He denies any combustible cigarette use. However, he does report that he regularly vapes marijuana on a daily basis. On presentation to the emergency department, the patient was documented to have a low-grade fever and was tachycardic and tachypneic. Nevertheless, the patient was documented to be hemodynamically stable. He was subsequently placed on 2 L/min via nasal cannula. Laboratory evaluation revealed a normal white blood cell count. Platelet count was elevated at 984,000. Coagulation profile was unremarkable. Chemistry profile was unremarkable with a normal lactate. Chest x-ray demonstrated persistent bilateral airspace disease along with a newly identified right basilar pneumothorax with approximately 2 cm pleural separation. The patient received supplemental IV fluid hydration and was placed on broad-spectrum antimicrobials. He was subsequently admitted to the progressive care unit for further management. Follow-up chest imaging completed this morning demonstrated interval decrease in the size of the previously noted pneumothorax with approximately 1.2 cm of pleural separation. The infiltrates noted on today's chest x-ray are certainly more pronounced and abundant than they were on prior chest imaging dated August 13. [facility] Medical History Current every day cannabis vapor product user Wears glasses Excessive bleeding HSV infection HIV disease Home Medications ?Medication ?Instructions ?Recorded ?Last Taken ?Type acyclovir 400 mg tablet 400 mg PO BID herpes 07/28/20 Unknown History bictegravir 50 mg-emtricitabine 1 tab PO QHS HIV 10/11/20 Unknown History 200 mg-tenofovir alafenam 25 mg tablet amoxicillin 500 mg capsule 1,000 mg (2 x 500 mg) PO TID 10 08/14/24 08/23/24 Rx days #60 caps Allergy/AdvReac Type Severity Reaction Status Date / Time No Known Allergies Allergy Verified 08/23/24 21:25 Family History Father Cancer melanoma Colon cancer Hypertension Grandmother Diabetes Aunt Diabetes Other Dementia Surgical History History of appendectomy Social History Smoking Status: Never smoker alcohol intake: current alcohol intake frequency: holidays/special occasions only substance use type: marijuana what type of physical activity do you participate in: other details: active job ROS ROS Narrative 10 systems were reviewed with pertinent positives as noted in the HPI above. Physical Exam Const alert and no apparent distress General Appearance: cooperative HEENT normocephalic, head/scalp atraumatic and moist oral mucous membranes Eyes EOMs intact bilaterally and conjunctivae normal Neck supple General: trachea midline Chest inspection of chest normal Resp normal respiratory effort Auscultation: Negative for rales, rhonchi or wheezes Cardio regular rate and regular rhythm GI normal to inspection, nondistended, normoactive bowel sounds Extremity no clubbing, cyanosis or edema Skin no rashes or lesions noted Neuro CN's II-XII intact bilaterally, moves all extremities and no focal motor deficits Psych cooperative and affect normal Lab / Micro Data 08/23/24 21:55 08/23/24 21:55 Labs: Laboratory Results - last 24 hr 08/23/24 21:55: WBC 10.9, RBC 4.23 L, Hgb 11.7 L, Hct 36.4 L, MCV 86.1, MCH 27.7, MCHC 32.1, RDW Std Deviation 41.5, RDW Coeff of Romel 13.2, Plt Count 984 H*, MPV 8.8, Immature Gran % (Auto) 1.700 H, Neut % (Auto) 70.5 H, Lymph % (Auto) 20.8, [place] % (Auto) 3.9, Eos % (Auto) 2.5, Baso % (Auto) 0.6, Absolute Neuts (auto) 7.7, Absolute Lymphs (auto) 2.26, Nucleated RBC % 0, Diff Path Review February, Platelet Estimate MKD INC, PT 14.6, INR 1.1, APTT 32.6, Sodium 139, Potassium 3.9, Chloride 108 H, Carbon Dioxide 24.0, Anion Gap 7, BUN 27 H, Creatinine 1.01, Estim Creat Clear Calc 101.50, Est GFR (MDRD) Af Amer 99, Est GFR (MDRD) Non-Af 82, BUN/Creatinine Ratio 26.7 H, Glucose 147 H, Lactic Acid 2.0, Calcium 8.5, Total Bilirubin 0.20, AST 65 H, ALT 138 H, Alkaline Phosphatase 149 H, Troponin I High Sens 3, Total Protein 7.2, Albumin 2.2 L, Globulin 5.0 H, Albumin/Globulin Ratio 0.4 L 08/24/24 00:24: Lactic Acid 1.3 08/24/24 05:15: Hemoglobin A1c 6.5 H, Triglycerides 109, Cholesterol 162, LDL Cholesterol 114, VLDL Cholesterol 22, HDL Cholesterol 26 L, TSH 1.050 Micro: Microbiology 08/24/24 03:14 Mucosa - Nasopharyngeal Respiratory Panel (PCR) - Final 08/24/24 00:27 Urine, Clean Catch Legionella Antigen - Final 08/24/24 00:27 Urine, Clean Catch Streptococcus pneumoniae Antigen (M - Final 08/23/24 21:56 Mucosa - Nose SARS-CoV-2, Influenza & RSV (PCR) - Final Imaging Radiology Impression Brain CT 08/23/24 21:41 IMPRESSION: 1. Normal CT examination of brain. 2. No intracranial mass, hemorrhage or acute territorial infarct. 3. No radiographically significant sinus disease.. Electronically Signed: Nam Fitzpatrick MD at 23:19 EST Reading Location ID and State: [facility] / [place] Tel , Service support , Chest X-Ray 08/23/24 21:41 IMPRESSION: 1. RIGHT basilar/CP angle pneumothorax measuring 2.1 cm. No mediastinal shift. 2. Bibasilar interstitial infiltrate/pneumonia. 3. No congestive failure. Electronically Signed: Nam Fitzpatrick MD at 22:46 EST , ADDENDUM: 08/23/24 9514 IMPRESSION: 1. RIGHT basilar/CP angle pneumothorax measuring 2.1 cm. No mediastinal shift. 2. Bibasilar interstitial infiltrate/pneumonia. 3. No congestive failure. N.B. : The above Results were Read Back by Nam Fitzpatrick MD to Alec Jessica DO, and understanding confirmed on 08/23/2024 22:47:57 (ET). Electronically Signed: Nam Fitzpatrick MD at 22:46 EST , Chest X-Ray 08/24/24 05:55 IMPRESSION: Right pneumothorax again noted, smaller at the lung base but with extension to the right apex since the study of one day ago; the overall size of the pneumothorax is probably unchanged. No associated mediastinal shift. Stable pneumonia within the mid to lower lungs. Electronically Signed: Negrito Malloy MD at 7:54 EST , Charges/Coding Visit Charges Inpatient E&M: 67221 Init Hosp L3
--- NOTE | 2024-08-24 14:03 | CON.PCM.ID_ITS ---
Assessment & Plan Assessment/Plan (1) Pneumothorax on right: (2) Pneumonia: QUALIFIERS: Pneumonia type: due to unspecified organism L aterality: bilateral Lung location: unspecified part of lung Qualified Code(s): J18.9 - Pneumonia, unspecified organism PLAN: Will check sputum cx, sputum AFB. Seen by pulm, pneumothorax seems to be improving. CD4 700 and VL undetectable 06/2024 and med compliant, so should not be at risk for PJP causing a pneumo. Resp viral panel neg. UAgs neg. Mild ALT/AST rise. Cont vanc/zosyn. Biktarvy not available, will use raltegravir/truvada while inpatient. Will follow, thank you (3) HIV disease: HPI Consult Data Date of Consult: 08/24/24 HPI Narrative Reason for Consultation: pneumonia HPI Narrative: SOL ESQUIVEL, is a 54 M with HIV, last CD4 695 and VL neg on 06/2024 on biktarvy, presented 08/23 with 2 weeks progressive cough, dyspnea, chills, sweats. Came to ED here 08/13, sent home with bridget, sx continued, outpt covid was neg, sputum cx with oral deniz. Developed new R sided chest pain. Came to ED, found to have pneumothorax. Admitted on vanc/zosyn, feeling a little better today. Full ROS performed and neg except as noted above. [facility] Medical History Current every day cannabis vapor product user Wears glasses Excessive bleeding HSV infection HIV disease Home Medications ?Medication ?Instructions ?Recorded ?Last Taken ?Type acyclovir 400 mg tablet 400 mg PO BID herpes 07/28/20 Unknown History bictegravir 50 mg-emtricitabine 1 tab PO QHS HIV 10/11/20 Unknown History 200 mg-tenofovir alafenam 25 mg tablet amoxicillin 500 mg capsule 1,000 mg (2 x 500 mg) PO TID 10 08/14/24 08/23/24 Rx days #60 caps Allergy/AdvReac Type Severity Reaction Status Date / Time No Known Allergies Allergy Verified 08/23/24 21:25 Family History Father Cancer melanoma Colon cancer Hypertension Grandmother Diabetes Aunt Diabetes Other Dementia Surgical History History of appendectomy Social History Smoking Status: Never smoker alcohol intake: current alcohol intake frequency: holidays/special occasions only substance use type: marijuana what type of physical activity do you participate in: other details: active job Physical Exam Const alert, oriented x3 and no apparent distress General Appearance: cooperative HEENT normocephalic and head/scalp atraumatic Eyes PERRL and EOMs intact bilaterally Neck supple and No nodes Resp Auscultation: rhonchi and diminished lung sounds Cardio Rate: tachycardic GI soft to palpation, non-tender and non-distended Extremity General Extremity: Negative for edema Skin no rashes or lesions noted Neuro CN's II-XII intact bilaterally Lab / Micro Data Attestation: I reviewed the patient's lab results. 08/23/24 21:55 08/23/24 21:55 Labs: Laboratory Results - last 24 hr 08/23/24 21:55: WBC 10.9, RBC 4.23 L, Hgb 11.7 L, Hct 36.4 L, MCV 86.1, MCH 27.7, MCHC 32.1, RDW Std Deviation 41.5, RDW Coeff of Romel 13.2, Plt Count 984 H* , MPV 8.8, Immature Gran % (Auto) 1.700 H, Neut % (Auto) 70.5 H, Lymph % (Auto) 20.8, [place] % (Auto) 3.9, Eos % (Auto) 2.5, Baso % (Auto) 0.6, Absolute Neuts (auto) 7.7, Absolute Lymphs (auto) 2.26, Nucleated RBC % 0, Diff Path Review February, Platelet Estimate MKD INC, PT 14.6, INR 1.1, APTT 32.6, Sodium 139, Potassium 3.9, Chloride 108 H, Carbon Dioxide 24.0, Anion Gap 7, BUN 27 H, Creatinine 1.01, Estim Creat Clear Calc 101.50, Est GFR (MDRD) Af Amer 99, Est GFR (MDRD) Non-Af 82, BUN/Creatinine Ratio 26.7 H, Glucose 147 H, Lactic Acid 2.0, Calcium 8.5, Total Bilirubin 0.20, AST 65 H, ALT 138 H, Alkaline Phosphatase 149 H, Troponin I High Sens 3, Total Protein 7.2, Albumin 2.2 L, G lobulin 5.0 H, Albumin/Globulin Ratio 0.4 L 08/24/24 00:24: Lactic Acid 1.3 08/24/24 05:15: Hemoglobin A1c 6.5 H, Triglycerides 109, Cholesterol 162, LDL Cholesterol 114, VLDL Cholesterol 22, HDL Cholesterol 26 L, TSH 1.050 Micro: Microbiology 08/24/24 03:14 Mucosa - Nasopharyngeal Respiratory Panel (PCR) - Final 08/24/24 00:27 Urine, Clean Catch Legionella Antigen - Final 08/24/24 00:27 Urine, Clean Catch Streptococcus pneumoniae Antigen (M - Final 08/23/24 21:56 Mucosa - Nose SARS-CoV-2, Influenza & RSV (PCR) - Final Imaging Radiology Impression Brain CT 08/23/24 21:41 IMPRESSION: 1. Normal CT examination of brain. 2. No intracranial mass, hemorrhage or acute territorial infarct. 3. No radiographically significant sinus disease.. Electronically Signed: Nam Fitzpatrick MD at 23:19 EST , Chest X-Ray 08/23/24 21:41 IMPRESSION: 1. RIGHT basilar/CP angle pneumothorax measuring 2.1 cm. No mediastinal shift. 2. Bibasilar interstitial infiltrate/pneumonia. 3. No congestive failure. Electronically Signed: Nam Fitzpatrick MD at 22:46 EST , ADDENDUM: 08/23/24 8642 IMPRESSION: 1. RIGHT basilar/CP angle pneumothorax measuring 2.1 cm. No mediastinal shift. 2. Bibasilar interstitial infiltrate/pneumonia. 3. No congestive failure. N.B. : The above Results were Read Back by Nam Fitzpatrick MD to Alec Jessica DO, and understanding confirmed on 08/23/2024 22:47:57 (ET). Electronically Signed: Nam Fitzpatrick MD at 22:46 EST , Chest X-Ray 08/24/24 05:55 IMPRESSION: Right pneumothorax again noted, smaller at the lung base but with extension to the right apex since the study of one day ago; the overall size of the pneumothorax is probably unchanged. No associated mediastinal shift. Stable pneumonia within the mid to lower lungs. Electronically Signed: Negrito Malloy MD at 7:54 EST ,
[2024-08-24 15:05] VITALS: BP 149/82; PULSE 79; RESP 18; TEMP 37.2; O2SAT 94
[2024-08-24] MEDS: Acetaminophen 325 MG Tablet 650 MG PO (15:12)
[2024-08-24 20:35] VITALS: BP 138/91; PULSE 92; RESP 18; TEMP 36.9; O2SAT 100
[2024-08-24] MEDS: RALTEGRAVIR POTASSIUM 400 MG TABLET PO (21:08)
[2024-08-24] MEDS: EMTRICITABINE/TENOFOVIR 1 TABLET TABLET PO (21:09)
[2024-08-24] MEDS: 0.9% Saline Lock 10 ML Syringe IV (21:10)
[2024-08-25 00:45] LABS: Vancomycin, Trough Level 18.5 ug/mL (5.0-15.0)
--- NOTE | 2024-08-25 00:52 | PCM.RX.CS ---
Consult Antibiotic Management Pharmacy has been consulted to manage selected antibiotic: Vancomycin Type of Intervention Type of Consult: Follow-up Suspected Infection Suspected Infection: Sepsis and Pneumonia Labs Labs: Sodium 139 mmol/L (136-145) 08/23/24 21:55 Potassium 3.9 mmol/L (3.5-5.1) 08/23/24 21:55 Chloride 108 mmol/L (98-107) H 08/23/24 21:55 Carbon Dioxide 24.0 mmol/L (21.0-32.0) 08/23/24 21:55 Anion Gap 7 (5-15) 08/23/24 21:55 BUN 27 mg/dL (7-18) H 08/23/24 21:55 Creatinine 1.01 mg/dL (0.70-1.30) 08/23/24 21:55 Est GFR (MDRD) Af Amer 99 mL/min (>60) 08/23/24 21:55 Est GFR (MDRD) Non-Af 82 mL/min (>60) 08/23/24 21:55 BUN/Creatinine Ratio 26.7 RATIO (10-20) H 08/23/24 21:55 Glucose 147 mg/dL (74-106) H 08/23/24 21:55 Vancomycin Trough 18.5 ug/mL (5.0-15.0) H 08/24/24 23:38 Microbiology Microbiology: Microbiology 08/24/24 03:14 Mucosa - Nasopharyngeal Respiratory Panel (PCR) - Final 08/24/24 00:27 Urine, Clean Catch Legionella Antigen - Final 08/24/24 00:27 Urine, Clean Catch Streptococcus pneumoniae Antigen (M - Final 08/23/24 21:56 Mucosa - Nose SARS-CoV-2, Influenza & RSV (PCR) - Final Dosing Weight Weight used for dosin.4 kg Estimated Creatinine Clearance Estimated Creatinine Clearance: 102 Goal Trough Goal Trough: 15-20 mcg/mL Pharmacy Plan for Drug Dosing Pharmacy Plan for Drug Dosing: Vancomycin trough level of 18.5, drawn 6.25hrs post-dose, was within the target range of 15-20. Dosing calculator verified with time adjustment that current dosing should give an estimated trough of 16.1. Will continue at 1250mg q8h and will draw another level in two days. Pharmacy Service will continue to monitor and adjust dosing as required. Follow-Up Labs Follow-Up Labs: Trough: Vancomycin Date/Time Labs Ordered Labs to be done on [date and time ordered]: 08/27/24 @0000
[2024-08-25] MEDS: Vancomycin HCl 1,250 MG in 0.9% Normal Saline (250mL Bag) 250 ML 167 MG IV ×3 (01:07→18:33)
[2024-08-25 03:00] VITALS: BP 146/87; PULSE 88; RESP 20; TEMP 37.4; O2SAT 92
[2024-08-25] MEDS: 0.9% Saline Lock 10 ML Syringe IV ×3 (03:58→22:30)
--- NOTE | 2024-08-25 05:00 | RAD_ITS ---
INDICATION: PTX follow up EXAMINATION/TECHNIQUE: X-RAY - XR Chest 1 View COMPARISON: 08/24/2024. FINDINGS: LINES/DEVICES: None. LUNGS: Stable right pneumothorax. Stable bilateral airspace opacities. No evidence of a pleural effusion. MEDIASTINUM AND CARDIOVASCULAR STRUCTURES: Cardiac silhouette is normal in size and contour. Mediastinum is unremarkable. BONES AND SOFT TISSUES: No acute abnormality. RAD/Chest 1 View (Portable) IMPRESSION: 1. Stable right pneumothorax. 2. Stable bilateral airspace opacities consistent with pneumonia. Electronically Signed: Timo Choudhury DO at 4:45 EST ,
[2024-08-25 05:45] LABS: Absolute Lymphocyte Count 2.07 X10^3/uL (0.83-4.51); Absolute Neutrophil Count 8.2 X10^3/uL (2.0-7.7); Basophil# 0.07 X10^3/uL; Basophil% 0.6 % (0-1); Eosinophil# 0.26 X10^3/uL; Eosinophils% 2.3 % (0-5); Hematocrit 35.3 % (40-54); Hemoglobin 11.3 g/dL (13.0-16.5); Lymphocyte # 2.07 X10^3/ul (0.83-4.51); Lymphocyte % 18.2 % (19-41); Mean Corpuscular Hgb 27.1 pg (27.0-32.0); Mean Corpuscular Volume 84.7 fL (80-94); Mean Platelet Vol. 8.8 fl (6.2-12.0); Monocyte# 0.58 X10^3/uL; Monocyte% 5.1 % (0-10); NRBC Flagged by Analyzer 0 % (0-5); Neutrophil # 8.22 X10^3/uL (2.7-7.7); Neutrophil % 72.5 % (47-70); POSITIVE COUNT YES; RBC Distribution Width SD 40.2 fl (35.1-43.9); Red Blood Count 4.17 M/mm3 (4.6-6.2); White Blood Count 11.4 K/mm3 (4.4-11.0)
[2024-08-25] MEDS: Piperacil/Tazobactam 3.375 GM in 0.9% Normal Saline (50mL MB+) 50 ML IV ×3 (05:47→22:31)
[2024-08-25 05:49] LABS: Differential Indicated SCAN CRITERIA MET; Platelet Count 816 K/mm3 (150-450)
[2024-08-25 06:04] LABS: Anion Gap 7 (5-15); BUN 13 mg/dL (7-18); BUN/Creat Ratio 14.8 RATIO (10-20); Calcium,Total 8.6 mg/dL (8.5-10.1); Chloride 108 mmol/L (98-107); Creatinine, Serum 0.88 mg/dL (0.70-1.30); EST Glomerular Filtration Rate 96 mL/min (>60); Est Glom Filt Rate - Afr Amer 117 mL/min (>60); Estimated Creatinine Clearance 116.33 ml/min; Glucose 116 mg/dL (74-106); Potassium 4.3 mmol/L (3.5-5.1); Sodium Level 137 mmol/L (136-145)
[2024-08-25 06:36] LABS: Anisocytosis 1+; Differential Comment SCANNED; Ovalocyte 1+; Platelet Estimate MKD INC (ADEQ); Polychromasia 1+
[2024-08-25 06:58] VITALS: O2SAT 94
[2024-08-25] MEDS: Ascorbic Acid 500 MG Tablet 1000 MG PO ×2 (08:57→18:29)
[2024-08-25 09:00] VITALS: BP 149/91; PULSE 88; RESP 20; TEMP 37.2; O2SAT 93
[2024-08-25] MEDS: Cholecalciferol (Vit D3) 125 MCG CAPSULE (5,000 UNITS) PO (09:06)
[2024-08-25] MEDS: Acyclovir 200 MG Capsule 400 MG PO ×2 (09:07→22:29)
[2024-08-25] MEDS: Lactobacillis Acidophilus 1 CAP PO ×4 (09:07→22:29)
[2024-08-25] MEDS: RALTEGRAVIR POTASSIUM 400 MG TABLET PO ×2 (09:07→22:29)
[2024-08-25] MEDS: Enoxaparin 40 MG/0.4 ML Syringe SC (09:07)
[2024-08-25] MEDS: Pantoprazole Sodium 40 MG Tablet PO (09:07)
[2024-08-25] MEDS: Zinc Sulfate 50 mg zinc (220 mg) ORAL capsule PO (09:07)
--- NOTE | 2024-08-25 10:50 | PCM.PN.ID ---
Physical Exam Narrative Not feeling any better. No fever, no n/v/d. Still dyspnea and cough. Const alert and no apparent distress Resp normal air movement and clear to auscultation bilaterally Cardio regular rate and regular rhythm GI soft to palpation, non-tender and non-distended Skin no rashes or lesions noted ID ID: Route of nutrition/ use of supplements: [] Nutritional Intake: [] IV Site: [] Barragan Catheter: [] Assessment & Plan Assessment/Plan (1) Pneumothorax on right: (2) Pneumonia: QUALIFIERS: Pneumonia type: due to unspecified organism Laterality: bilateral Lung location: unspecified part of lung Qualified Code(s): J18.9 - Pneumonia, unspecified organism PLAN: Pending sputum cx, sputum AFB. Seen by pulm, pneumothorax seems to be improving. CD4 700 and VL undetectable 06/2024 and med compliant, so should not be at risk for PJP causing a pneumo. Resp viral panel neg. UAgs neg. Mild ALT/AST rise. Cont vanc/zosyn. Biktarvy not available, using raltegravir/truvada while inpatient. Will follow (3) HIV disease:
--- NOTE | 2024-08-25 10:57 | PN.HOSP_ITS ---
Subjective Subjective Doing well, no issues open Objective Data Objective Data Vital Signs: Vital Signs Temp Pulse Resp BP Pulse Ox O2 Del Method O2 Flow Rate 99.0 F 88 20 H 149/91 H 93 Nasal Cannula 2 08/25/24 09:00 08/25/24 09:00 08/25/24 09:00 08/25/24 09:00 08/25/24 09:00 08/25/24 09:43 08/25/24 09:43 Oxygen Flow Rate (L/min) 2 Oxygen Delivery Method Nasal Cannula Weight: 210 lb 5.136 oz Body Mass Index (BMI) 28.5 Intake & Output: Intake and Output for Last 24 Hours 08/24/24 08/25/24 08/26/24 03:59 03:59 03:59 Intake Total 1640 / 1640 4927.5 / 4927.5 680 / 680 Output Total 2400 / 2400 1100 / 1100 Balance 1640 / 1640 2527.5 / 2527.5 -420 / -420 Lab / Micro Data 08/25/24 05:08 08/25/24 05:08 Labs: Laboratory Results - last 24 hr 08/24/24 23:38: Vancomycin Trough 18.5 H 08/25/24 05:08: WBC 11.4 H, RBC 4.17 L, Hgb 11.3 L, Hct 35.3 L, MCV 84.7, MCH 27.1, MCHC 32.0, RDW Std Deviation 40.2, RDW Coeff of Romel 13.0, Plt Count 816 H* , MPV 8.8, Immature Gran % (Auto) 1.300 H, Neut % (Auto) 72.5 H, Lymph % (Auto) 18.2 L, [place] % (Auto) 5.1, Eos % (Auto) 2.3, Baso % (Auto) 0.6, Absolute Neuts (auto) 8.2 H, Absolute Lymphs (auto) 2.07, Nucleated RBC % 0, Differential Comment SCANNED, Diff Path Review May foll, Platelet Estimate MKD INC, Polychromasia 1+, Anisocytosis 1+, Ovalocytes 1+, Sodium 137, Potassium 4.3, C hloride 108 H, Carbon Dioxide 22.0, Anion Gap 7, BUN 13, Creatinine 0.88, Estim Creat Clear Calc 116.33, Est GFR (MDRD) Af Amer 117, Est GFR (MDRD) Non-Af 96, BUN/Creatinine Ratio 14.8, Glucose 116 H, Calcium 8.6 Micro: Microbiology 08/24/24 15:10 Sputum, Expectorated/Coughed Gram Stain - Final 08/24/24 03:14 Mucosa - Nasopharyngeal Respiratory Panel (PCR) - Final 08/24/24 00:27 Urine, Clean Catch Legionella Antigen - Final 08/24/24 00:27 Urine, Clean Catch Streptococcus pneumoniae Antigen (M - Final 08/23/24 21:56 Mucosa - Nose SARS-CoV-2, Influenza & RSV (PCR) - Final Radiography Diagnostic Testing: Radiology Impression Chest X-Ray 08/25/24 05:00 IMPRESSION: 1. Stable right pneumothorax. 2. Stable bilateral airspace opacities consistent with pneumonia. Electronically Signed: Timo Choudhury DO at 4:45 EST , Physical Exam Narrative General: Alert, Oriented x3, Cooperative, No apparent distress HEENT: Atraumatic, PERRLA, EOMI, Normocephalic Oral: Moist Mucosa Neck: Supple, No JVD Lungs: Diminished, Normal air movement, No rhonchi, No wheeze, No rales Cardiovascular: Regular rate, Regular Rhythm, Normal S1, Normal S2, No murmurs Abdomen: Soft, Non Tender, Non-Distended, No Hepato-splenomegaly Extremities: No edema, Capillary Refill Less than 3 Seconds Skin: No rashes, No breakdown Musculoskeletal: No Tenderness to Palpation of Joints or Extremities Neurological: No focal neurological deficits, Motor Exam 5/5 strength throughout, Sensory exam intact to light touch and pain Psych/Mental Status: Normal Affect, Appropriate Assessment & Plan Assessment/Plan (1) Pneumonia: QUALIFIERS: Pneumonia type: due to unspecified organism L aterality: bilateral Lung location: unspecified part of lung Qualified Code(s): J18.9 - Pneumonia, unspecified organism (2) Pneumothorax on right: (3) Respiratory insufficiency: (4) Reactive thrombocytosis: PLAN: Plan 1. Bilateral pneumonia failing outpatient treatment with 2.1 cm right basilar pneumothorax with respiratory insufficiency sepsis rule out/HIV ? Appreciate pulmonology and ID assistance ? Continue with broad-spectrum antibiotics, sputum cultures pending ? Continue with his HIV medications ? Chest x-ray today demonstrates some improvement in his pneumothorax ? Reactive thrombocytosis, appears to be improving ? Continue with herpes prophylaxis with acyclovir DVT: Lovenox Charges/Coding Visit Charges Inpatient E&M: 17422 Subs Hosp L2
--- NOTE | 2024-08-25 13:34 | CT_ITS ---
STUDY: CT CHEST WITHOUT CONTRAST REASON FOR EXAM: Male, 54 years old. PTX of unclear etiology RADIATION DOSAGE (If Supplied By Facility): CTDIvol = ( 18.44 ) mGy, DLP = ( 677.51 ) mGycm TECHNIQUE: Transaxial imaging was performed without the administration of intravenous contrast material. Multiplanar coronal and sagittal images were reformatted. Individualized dose optimization techniques were used for this CT. COMPARISON: Comparison made with prior chest radiograph done earlier today. FINDINGS: CHEST There is a 5-10% right pneumothorax. Diffuse bilateral patchy pulmonary infiltrates worse at the lung bases. I also suspect bronchiectasis at the lung bases. Tiny bilateral pleural effusions. There are calcifications of the coronary arteries. There are multiple small lymph nodes within the mediastinum, which are normal in size and morphology most compatible with reactive lymph hyperplasia. Normal hilar regions. Normal unenhanced pulmonary arteries. Normal aorta arch and descending thoracic aorta. There are multi-level degenerative changes of the thoracic spine. There is no demonstrated abnormality of the visualized upper abdomen. CT/Chest without Contrast IMPRESSION: 5-10% right pneumothorax with the multiple bilateral patchy infiltrates worse at the lung bases superimposed on scarring. Electronically Signed: Joe Maurer MD at 14:27 EST ,
[2024-08-25 13:37] LABS: Pathologist Review Reviewed
[2024-08-25 13:47] LABS: Pathologist Review Reviewed
--- NOTE | 2024-08-25 13:47 | PN.CC_ITS ---
Assessment & Plan Assessment/Plan (1) Pneumothorax on right: (2) Sepsis: QUALIFIERS: Sepsis type: sepsis due to unspecified organism S epsis acute organ dysfunction status: without acute organ dysfunction Qualified Code(s): A41.9 - Sepsis, unspecified organism (3) Hypoxia: PLAN: Plan RECOMMENDATIONS: 1. Continue supplemental oxygen. 2. Obtain follow-up chest x-ray tomorrow morning (or sooner if the patient becomes more symptomatic) 3. Antimicrobials per ID recommendations. 4. If pneumothorax enlarges (greater than 2 cm of pleural separation) consider tube thoracotomy 5. Encourage incentive spirometer use and mobilize patient as tolerated. 6. Given the undifferentiated nature of the pneumothorax, will obtain CT chest without contrast. IMPRESSIONS: 1. Shortness of breath and hypoxemia Appears to be secondary to a combination of progressive multifocal airspace disease coupled with small right spontaneous pneumothorax, without clear precipitating etiology. The patient is stable from a respiratory perspective. He remains on antimicrobials, which are being managed by infectious diseases. The patient's pneumothorax remains small on chest imaging. However, given its undifferentiated nature, will obtain CT chest today. In the interim, continue supplemental oxygen. If the patient's pneumothorax enlarges or the patient becomes more symptomatic, would then consider tube thoracotomy. 2. History of HIV on HAART/reactive thrombocytosis/chronic cannabis use Complicates care, management, recovery and prognosis. Continue supportive measures as noted above. Encourage incentive spirometer use and mobilize patient as tolerated. This note was generated with [employer] dictation software. It may contain incorrect words, spelling, and punctuation that were not noted in checking the note before signing. Subjective Subjective The patient was seen and examined at the bedside this morning. Events from the last 24 hours have been reviewed. The patient is currently afebrile, hemodynamically stable and maintaining appropriate oxygen saturations on 2 L/min via nasal cannula. No overnight issues were identified. Chest imaging from this morning demonstrated overall size stability in the patient's pneumothorax. Objective Data Objective Data The patient's most recent lab work, culture data and imaging studies have all been personally reviewed. Sputum culture is currently pending. Vital Signs: Vital Signs Temp Pulse Resp BP Pulse Ox O2 Del Method O2 Flow Rate 99.0 F 88 20 H 149/91 H 93 Nasal Cannula 2 08/25/24 09:00 08/25/24 09:00 08/25/24 09:00 08/25/24 09:00 08/25/24 09:00 08/25/24 09:43 08/25/24 09:43 Oxygen Flow Rate (L/min) 2 Oxygen Delivery Method Nasal Cannula Weight: 210 lb 5.136 oz Body Mass Index (BMI) 28.5 Intake & Output: Intake and Output for Last 24 Hours 08/23/24 08/24/24 08/25/24 23:59 23:59 23:59 Intake Total 6242.5 / 6242.5 1330 / 1330 Output Total 2400 / 2400 1500 / 1500 Balance 3842.5 / 3842.5 -170 / -170 Lab / Micro Data Attestation: I reviewed the patient's lab results. 08/25/24 05:08 08/25/24 05:08 Labs: Laboratory Results - last 24 hr 08/23/24 21:55: Diff Path Review Reviewed 08/24/24 23:38: Vancomycin Trough 18.5 H 08/25/24 05:08: WBC 11.4 H, RBC 4.17 L, Hgb 11.3 L, Hct 35.3 L, MCV 84.7, MCH 27.1, MCHC 32.0, RDW Std Deviation 40.2, RDW Coeff of Romel 13.0, Plt Count 816 H* , MPV 8.8, Immature Gran % (Auto) 1.300 H, Neut % (Auto) 72.5 H, Lymph % (Auto) 18.2 L, [place] % (Auto) 5.1, Eos % (Auto) 2.3, Baso % (Auto) 0.6, Absolute Neuts (auto) 8.2 H, Absolute Lymphs (auto) 2.07, Nucleated RBC % 0, Differential Comment SCANNED, Diff Path Review Reviewed, Platelet Estimate MKD INC, Polychromasia 1+, Anisocytosis 1+, Ovalocytes 1+, Sodium 137, Potassium 4.3, C hloride 108 H, Carbon Dioxide 22.0, Anion Gap 7, BUN 13, Creatinine 0.88, Estim Creat Clear Calc 116.33, Est GFR (MDRD) Af Amer 117, Est GFR (MDRD) Non-Af 96, BUN/Creatinine Ratio 14.8, Glucose 116 H, Calcium 8.6 Micro: Microbiology 08/25/24 08:30 Nasal Secretion MRSA (PCR) - Final Meth. resistant Staph. aureus 08/24/24 15:10 Sputum, Expectorated/Coughed Gram Stain - Final 08/24/24 03:14 Mucosa - Nasopharyngeal Respiratory Panel (PCR) - Final 08/24/24 00:27 Urine, Clean Catch Legionella Antigen - Final 08/24/24 00:27 Urine, Clean Catch Streptococcus pneumoniae Antigen (M - Final 08/23/24 21:56 Mucosa - Nose SARS-CoV-2, Influenza & RSV (PCR) - Final Radiography Diagnostic Testing: Radiology Impression Chest X-Ray 08/25/24 05:00 IMPRESSION: 1. Stable right pneumothorax. 2. Stable bilateral airspace opacities consistent with pneumonia. Electronically Signed: Timo Choudhury DO at 4:45 EST , Physical Exam Const alert and no apparent distress General Appearance: cooperative HEENT normocephalic, head/scalp atraumatic and moist oral mucous membranes Eyes EOMs intact bilaterally and conjunctivae normal Neck supple General: trachea midline Chest inspection of chest normal Resp normal respiratory effort Auscultation: Negative for rales, rhonchi or wheezes Cardio regular rate and regular rhythm GI normal to inspection, nondistended, normoactive bowel sounds Extremity no clubbing, cyanosis or edema Skin no rashes or lesions noted Neuro CN's II-XII intact bilaterally, moves all extremities and no focal motor deficits Psych cooperative and affect normal Charges/Coding Visit Charges Inpatient E&M: 25477 Subs Hosp L2
[2024-08-25 15:00] VITALS: BP 133/82; PULSE 82; RESP 18; TEMP 36.6; O2SAT 94
[2024-08-25] MEDS: EMTRICITABINE/TENOFOVIR 1 TABLET TABLET PO (22:29)
[2024-08-25 22:30] VITALS: BP 130/74; PULSE 85; RESP 18; TEMP 37.2; O2SAT 94
[2024-08-26] VITALS (7 sets, daily range): BP systolic 111–140; BP diastolic 67–97; PULSE 86–96; RESP 18–22; TEMP 36.4–37.1; O2SAT 86–95
[2024-08-26] MEDS: Vancomycin HCl 1,250 MG in 0.9% Normal Saline (250mL Bag) 250 ML 167 MG IV ×3 (00:27→17:58)
--- NOTE | 2024-08-26 05:00 | RAD_ITS ---
INDICATION: PTX follow up EXAMINATION/TECHNIQUE: X-RAY - XR Chest 1 View AP portable. 4:37 AM COMPARISON: Prior study dated: 08/25/2024 FINDINGS: LINES/DEVICES: None. LUNGS: Small right pneumothorax is slightly decreased compared to the prior. Bilateral infiltrates not significantly changed. MEDIASTINUM: Unremarkable. CARDIAC SILHOUETTE: Not enlarged. BONES AND SOFT TISSUES: No acute abnormalities. RAD/Chest 1 View (Portable) IMPRESSION: Slightly decreased right pneumothorax. No change bilateral airspace disease. Electronically Signed: Bhavya Carbone MD at 5:41 EST ,
[2024-08-26] MEDS: Piperacil/Tazobactam 3.375 GM in 0.9% Normal Saline (50mL MB+) 50 ML IV ×3 (05:31→21:07)
[2024-08-26 06:26] LABS: Absolute Lymphocyte Count 2.16 X10^3/uL (0.83-4.51); Absolute Neutrophil Count 7.7 X10^3/uL (2.0-7.7); Basophil# 0.08 X10^3/uL; Basophil% 0.7 % (0-1); Eosinophil# 0.31 X10^3/uL; Eosinophils% 2.8 % (0-5); Hematocrit 35.9 % (40-54); Hemoglobin 11.7 g/dL (13.0-16.5); Lymphocyte # 2.16 X10^3/ul (0.83-4.51); Lymphocyte % 19.4 % (19-41); Mean Corp Hgb Conc 32.6 g/dL (32-36); Mean Corpuscular Hgb 27.5 pg (27.0-32.0); Mean Corpuscular Volume 84.5 fL (80-94); Mean Platelet Vol. 8.8 fl (6.2-12.0); Monocyte# 0.68 X10^3/uL; Monocyte% 6.1 % (0-10); NRBC Flagged by Analyzer 0 % (0-5); Neutrophil # 7.74 X10^3/uL (2.7-7.7); Neutrophil % 69.4 % (47-70); POSITIVE COUNT YES; RBC Distribution Width CV 13.2 % (11.6-14.6); RBC Distribution Width SD 40.6 fl (35.1-43.9); Red Blood Count 4.25 M/mm3 (4.6-6.2); White Blood Count 11.2 K/mm3 (4.4-11.0)
[2024-08-26 06:54] LABS: Differential Indicated SCAN CRITERIA MET; Platelet Count 809 K/mm3 (150-450)
[2024-08-26 08:02] LABS: Anion Gap 7 (5-15); BUN 17 mg/dL (7-18); BUN/Creat Ratio 14.7 RATIO (10-20); Calcium,Total 8.9 mg/dL (8.5-10.1); Chloride 110 mmol/L (98-107); Creatinine, Serum 1.16 mg/dL (0.70-1.30); EST Glomerular Filtration Rate 70 mL/min (>60); Est Glom Filt Rate - Afr Amer 85 mL/min (>60); Estimated Creatinine Clearance 88.25 ml/min; Glucose 117 mg/dL (74-106); Potassium 4.6 mmol/L (3.5-5.1); Sodium Level 141 mmol/L (136-145)
[2024-08-26 08:21] LABS: Platelet Estimate MKD INC (ADEQ)
[2024-08-26] MEDS: Cholecalciferol (Vit D3) 125 MCG CAPSULE (5,000 UNITS) PO (09:04)
[2024-08-26] MEDS: Acyclovir 200 MG Capsule 400 MG PO ×2 (09:04→21:08)
[2024-08-26] MEDS: Zinc Sulfate 50 mg zinc (220 mg) ORAL capsule PO (09:04)
[2024-08-26] MEDS: Pantoprazole Sodium 40 MG Tablet PO (09:04)
[2024-08-26] MEDS: Ascorbic Acid 500 MG Tablet 1000 MG PO ×2 (09:04→17:28)
[2024-08-26] MEDS: RALTEGRAVIR POTASSIUM 400 MG TABLET PO ×2 (09:04→21:08)
[2024-08-26] MEDS: Lactobacillis Acidophilus 1 CAP PO ×4 (09:04→21:09)
[2024-08-26] MEDS: 0.9% Saline Lock 10 ML Syringe IV (09:56)
[2024-08-26] MEDS: Furosemide 40 MG/4 ML Vial IV (09:56)
--- NOTE | 2024-08-26 10:49 | PCM.PN.INT ---
Assessment & Plan Assessment/Plan (1) Pneumothorax on right: (2) Sepsis: QUALIFIERS: Sepsis type: sepsis due to unspecified organism Sepsis acute organ dysfunction status: without acute organ dysfunction Qualified Code(s): A41.9 - Sepsis, unspecified organism (3) Hypoxia: PLAN: Plan RECOMMENDATIONS: 1. Continue supplemental oxygen. 2. Obtain follow-up chest x-ray tomorrow morning (or sooner if the patient becomes more symptomatic) 3. Antimicrobials per ID recommendations. 4. If pneumothorax enlarges (greater than 2 cm of pleural separation) consider tube thoracotomy 5. Encourage incentive spirometer use and mobilize patient as tolerated. IMPRESSIONS: 1. Shortness of breath and hypoxemia Appears to be secondary to a combination of progressive multifocal airspace disease coupled with small right spontaneous pneumothorax, without clear precipitating etiology. The patient is stable from a respiratory perspective. He remains on antimicrobials, which are being managed by infectious diseases. The patient's pneumothorax remains small on chest imaging. If the patient's pneumothorax enlarges or the patient becomes more symptomatic, would then consider tube thoracotomy. 2. History of HIV on HAART/reactive thrombocytosis/chronic cannabis use Complicates care, management, recovery and prognosis. Continue supportive measures as noted above. Encourage incentive spirometer use and mobilize patient as tolerated. This note was generated with [employer] dictation software. It may contain incorrect words, spelling, and punctuation that were not noted in checking the note before signing. Subjective Subjective The patient was seen and examined at the bedside this morning. Events from the last 24 hours have been reviewed. The patient is currently afebrile, hemodynamically stable and maintaining appropriate oxygen saturations on 2 L/min via nasal cannula. White count remains mildly elevated at 11,000. Hemoglobin is stable. Repeat chest x-ray this morning demonstrated interval improvement in the size of the patient's basilar pneumothorax with approximately 8 mm of pleural separation. Although the patient reported no significant resting shortness of breath this morning, he did desaturate with exertion. Objective Data Objective Data The patient's most recent lab work, culture data and imaging studies have all been personally reviewed. Sputum culture is currently pending. Vital Signs: Vital Signs Temp Pulse Resp BP Pulse Ox O2 Del Method O2 Flow Rate 97.6 F L 87 20 H 140/97 H 86 Nasal Cannula 2 08/26/24 09:01 08/26/24 09:01 08/26/24 09:01 08/26/24 09:01 08/26/24 09:20 08/26/24 09:01 08/26/24 09:20 Oxygen Flow Rate (L/min) [ 8 AMBULATING with Oxygen #4] Oxygen Flow Rate (L/min) [ 6 AMBULATING with Oxygen #3] Oxygen Flow Rate (L/min) [ 4 AMBULATING with Oxygen #2] Oxygen Flow Rate (L/min) [ 2 AMBULATING with Oxygen #1] Oxygen Flow Rate (L/min) [At 2 REST with Oxygen] Oxygen Flow Rate (L/min) 2 Oxygen Delivery Method Nasal Cannula Weight: 210 lb 5.136 oz Body Mass Index (BMI) 28.5 Intake & Output: Intake and Output for Last 24 Hours 08/24/24 08/25/24 08/26/24 23:59 23:59 23:59 Intake Total 6242.5 / 6242.5 1655 / 2135 1215 / 1215 Output Total 2400 / 2400 2300 / 2900 1350 / 1350 Balance 3842.5 / 3842.5 -645 / -765 -135 / -135 Lab / Micro Data Attestation: I reviewed the patient's lab results. 08/26/24 05:21 08/26/24 05:21 Labs: Laboratory Results - last 24 hr 08/23/24 21:55: Diff Path Review Reviewed 08/25/24 05:08: Diff Path Review Reviewed 08/26/24 05:21: WBC 11.2 H, RBC 4.25 L, Hgb 11.7 L, Hct 35.9 L, MCV 84.5, MCH 27.5, MCHC 32.6, RDW Std Deviation 40.6, RDW Coeff of Romel 13.2, Plt Count 809 H*, MPV 8.8, Immature Gran % (Auto) 1.600 H, Neut % (Auto) 69.4, Lymph % (Auto) 19.4, [place] % (Auto) 6.1, Eos % (Auto) 2.8, Baso % (Auto) 0.7, Absolute Neuts (auto) 7.7, Absolute Lymphs (auto) 2.16, Nucleated RBC % 0, Diff Path Review February, Platelet Estimate MKD INC, Sodium 141, Potassium 4.6, Chloride 110 H, Carbon Dioxide 24.0, Anion Gap 7, BUN 17, Creatinine 1.16, Estim Creat Clear Calc 88.25, Est GFR (MDRD) Af Amer 85, Est GFR (MDRD) Non-Af 70, BUN/Creatinine Ratio 14.7, Glucose 117 H, Calcium 8.9 Micro: Microbiology 08/23/24 21:55 Blood Culture (Wb) - Anticubital Left Blood Culture - Preliminary No growth in 48 hours. 08/25/24 08:30 Nasal Secretion MRSA (PCR) - Final Meth. resistant Staph. aureus 08/24/24 15:10 Sputum, Expectorated/Coughed Gram Stain - Final 08/24/24 03:14 Mucosa - Nasopharyngeal Respiratory Panel (PCR) - Final 08/24/24 00:27 Urine, Clean Catch Legionella Antigen - Final 08/24/24 00:27 Urine, Clean Catch Streptococcus pneumoniae Antigen (M - Final 08/23/24 21:56 Mucosa - Nose SARS-CoV-2, Influenza & RSV (PCR) - Final Radiography Diagnostic Testing: Radiology Impression Chest CT 08/25/24 13:34 IMPRESSION: 5-10% right pneumothorax with the multiple bilateral patchy infiltrates worse at the lung bases superimposed on scarring. Electronically Signed: Joe Maurer MD at 14:27 EST , Chest X-Ray 08/26/24 05:00 IMPRESSION: Slightly decreased right pneumothorax. No change bilateral airspace disease. Electronically Signed: Bhavya Carbone MD at 5:41 EST , Physical Exam Const alert and no apparent distress General Appearance: cooperative HEENT normocephalic, head/scalp atraumatic and moist oral mucous membranes Eyes EOMs intact bilaterally and conjunctivae normal Neck supple General: trachea midline Chest inspection of chest normal Resp normal respiratory effort Auscultation: Negative for rales, rhonchi or wheezes Cardio regular rate and regular rhythm GI normal to inspection, nondistended, normoactive bowel sounds Extremity no clubbing, cyanosis or edema Skin no rashes or lesions noted Neuro CN's II-XII intact bilaterally, moves all extremities and no focal motor deficits Psych cooperative and affect normal Charges/Coding Visit Charges Inpatient E&M: 25992 Subs Hosp L2
--- NOTE | 2024-08-26 12:20 | PCM.PN.HOSP ---
Subjective Subjective Doing well, no issues overnight, feels like he is breathing well when he is laying still but does get short of breath with activity Objective Data Objective Data Vital Signs: Vital Signs Temp Pulse Resp BP Pulse Ox O2 Del Method O2 Flow Rate 97.6 F L 87 20 H 140/97 H 86 Nasal Cannula 2 08/26/24 09:01 08/26/24 09:01 08/26/24 09:01 08/26/24 09:01 08/26/24 09:20 08/26/24 09:01 08/26/24 09:20 Oxygen Flow Rate (L/min) [ 8 AMBULATING with Oxygen #4] Oxygen Flow Rate (L/min) [ 6 AMBULATING with Oxygen #3] Oxygen Flow Rate (L/min) [ 4 AMBULATING with Oxygen #2] Oxygen Flow Rate (L/min) [ 2 AMBULATING with Oxygen #1] Oxygen Flow Rate (L/min) [At 2 REST with Oxygen] Oxygen Flow Rate (L/min) 2 Oxygen Delivery Method Nasal Cannula Weight: 210 lb 5.136 oz Body Mass Index (BMI) 28.5 Intake & Output: Intake and Output for Last 24 Hours 08/25/24 08/26/24 08/27/24 03:59 03:59 03:59 Intake Total 4927.5 / 4927.5 2135 / 2135 1045 / 1045 Output Total 2400 / 2400 2900 / 2900 3100 / 3100 Balance 2527.5 / 2527.5 -765 / -765 -2055 / -2055 Lab / Micro Data 08/26/24 05:21 08/26/24 05:21 Labs: Laboratory Results - last 24 hr 08/23/24 21:55: Diff Path Review Reviewed 08/25/24 05:08: Diff Path Review Reviewed 08/26/24 05:21: WBC 11.2 H, RBC 4.25 L, Hgb 11.7 L, Hct 35.9 L, MCV 84.5, MCH 27.5, MCHC 32.6, RDW Std Deviation 40.6, RDW Coeff of Romel 13.2, Plt Count 809 H*, MPV 8.8, Immature Gran % (Auto) 1.600 H, Neut % (Auto) 69.4, Lymph % (Auto) 19.4, [place] % (Auto) 6.1, Eos % (Auto) 2.8, Baso % (Auto) 0.7, Absolute Neuts (auto) 7.7, Absolute Lymphs (auto) 2.16, Nucleated RBC % 0, Diff Path Review May foll, Platelet Estimate MKD INC, Sodium 141, Potassium 4.6, Chloride 110 H, Carbon Dioxide 24.0, Anion Gap 7, BUN 17, Creatinine 1.16, Estim Creat Clear Calc 88.25, Est GFR (MDRD) Af Amer 85, Est GFR (MDRD) Non-Af 70, BUN/Creatinine Ratio 14.7, Glucose 117 H, Calcium 8.9 Micro: Microbiology 08/23/24 21:55 Blood Culture (Wb) - Anticubital Left Blood Culture - Preliminary No growth in 48 hours. 08/25/24 08:30 Nasal Secretion MRSA (PCR) - Final Meth. resistant Staph. aureus 08/24/24 15:10 Sputum, Expectorated/Coughed Gram Stain - Final 08/24/24 03:14 Mucosa - Nasopharyngeal Respiratory Panel (PCR) - Final 08/24/24 00:27 Urine, Clean Catch Legionella Antigen - Final 08/24/24 00:27 Urine, Clean Catch Streptococcus pneumoniae Antigen (M - Final 08/23/24 21:56 Mucosa - Nose SARS-CoV-2, Influenza & RSV (PCR) - Final Radiography Diagnostic Testing: Radiology Impression Chest CT 08/25/24 13:34 IMPRESSION: 5-10% right pneumothorax with the multiple bilateral patchy infiltrates worse at the lung bases superimposed on scarring. Electronically Signed: Joe Maurer MD at 14:27 EST , Chest X-Ray 08/26/24 05:00 IMPRESSION: Slightly decreased right pneumothorax. No change bilateral airspace disease. Electronically Signed: Bhavya Carbone MD at 5:41 EST , Physical Exam Narrative General: Alert, Oriented x3, Cooperative, No apparent distress HEENT: Atraumatic, PERRLA, EOMI, Normocephalic Oral: Moist Mucosa Neck: Supple, No JVD Lungs: Diminished, Normal air movement, No rhonchi, No wheeze, No rales Cardiovascular: Regular rate, Regular Rhythm, Normal S1, Normal S2, No murmurs Abdomen: Soft, Non Tender, Non-Distended, No Hepato-splenomegaly Extremities: No edema, Capillary Refill Less than 3 Seconds Skin: No rashes, No breakdown Musculoskeletal: No Tenderness to Palpation of Joints or Extremities Neurological: No focal neurological deficits, Motor Exam 5/5 strength throughout, Sensory exam intact to light touch and pain Psych/Mental Status: Normal Affect, Appropriate Assessment & Plan Assessment/Plan (1) Pneumonia: QUALIFIERS: Pneumonia type: due to unspecified organism Laterality: bilateral Lung location: unspecified part of lung Qualified Code(s): J18.9 - Pneumonia, unspecified organism (2) Pneumothorax on right: (3) Respiratory insufficiency: (4) Reactive thrombocytosis: PLAN: Plan 1. Bilateral pneumonia failing outpatient treatment with 2.1 cm right basilar pneumothorax with respiratory insufficiency sepsis rule out/HIV ? Appreciate pulmonology and ID assistance ? Continue with broad-spectrum antibiotics, sputum cultures pending ? Continue with his HIV medications ? Chest x-ray today demonstrates some improvement in his pneumothorax ? Reactive thrombocytosis, appears to be improving ? Continue with herpes prophylaxis with acyclovir ? He did require 8 L with ambulation today so we will trial him on a dose of Lasix and evaluate him again tomorrow if he still having increased oxygen requirements with ambulation to that extent we will obtain an echo DVT: Lovenox Charges/Coding Visit Charges Inpatient E&M: 21803 Subs Hosp L2
--- NOTE | 2024-08-26 13:33 | PCM.PN.ID ---
Physical Exam Narrative Feeling not any better. Still cough, dyspnea. Desat with ambulation today. No fever. Const alert and no apparent distress General Appearance: cooperative Resp Auscultation: diminished lung sounds Cardio regular rate and regular rhythm GI soft to palpation, non-tender and non-distended Skin no rashes or lesions noted ID ID: Route of nutrition/ use of supplements: [] Nutritional Intake: [] IV Site: [] Barragan Catheter: [] Assessment & Plan Assessment/Plan (1) Pneumothorax on right: (2) Pneumonia: QUALIFIERS: Pneumonia type: due to unspecified organism Laterality: bilateral Lung location: unspecified part of lung Qualified Code(s): J18.9 - Pneumonia, unspecified organism PLAN: Pending sputum cx, sputum AFB. Seen by pulm, pneumothorax seems to be improving. CD4 700 and VL undetectable 06/2024 and med compliant, so should not be at risk for PJP causing a pneumo. Resp viral panel neg. UAgs neg. Mild ALT/AST rise. Cont vanc/zosyn. Biktarvy not available, using raltegravir/truvada while inpatient. Not improving, will check mycoplasma, add azithro for atypical coverage, recommend bronch. D/w Dr. Johansen. Will follow (3) HIV disease:
[2024-08-26] MEDS: Azithromycin 250 MG Tablet 500 MG PO (14:22)
[2024-08-26] MEDS: EMTRICITABINE/TENOFOVIR 1 TABLET TABLET PO (21:08)
[2024-08-27] VITALS (19 sets, daily range): BP systolic 70–134; BP diastolic 60–85; PULSE 80–96; RESP 16–30; TEMP 35.8–36.9; O2SAT 86–99
--- NOTE | 2024-08-27 | FLU_PTH ---
PATIENT: SOL ESQUIVEL LOC: [facility] U#:[id number] AGE/SX: 54/M ROOM: [facility] RE08/24/[address]: Dr. Mark Tucker MD : 1970 BED: 1 DIS: 08/30/2024 SPEC #: [id number] RECD: 08/27/24 11:41 STATUS: BHAVIN REQ #: [id number] BETHANY: 08/27/24 00:[address]: Kingsley Johansen DEPT: CYTOLOGY RECD BY: Han Rahman ENTERED: 08/27/24 14:25 SP TYPE: Fluid OTHR DR: MD Dr. Odilon Gandhi MD Dr. Bruce Arthur, MD Dr. David de Lorenzo, DO Dr. David P Myers, MD Dr. Edward Matheis, MD Dr. Gautam Baskaran, MD Dr. Yordanos Habtegebriel, MD Dr. Hemant Dand, MD Dr. Jose Ochoa, MD Dr. Kimber Foust, MD Dr. Lamia Aljundi, MD Dr. Loren Kirchner, MD Dr. Nicholas F Kotsonis, MD Dr. Pritam Ghosh, MD Dr. Pavan Irukulla, MD Dr. Robert Leininger, MD Dr. Saad Farooqi, MD Dr. Sukhdeep Dhesi, DO Dr. Sujoy Gill, MD Dr. Timothy Fernstrom, MD Dr. Alvin Bang Dr., MD Tissues: Left lower lobe of lung, NOS Procedures: PC (control) Special Stain Group II Special Stain Group I Surgery Specimen Level IV AFB Stain (control) GMS Stain (control) Cytospin Fluid HEADER OPERATION: Bronchoscopy PRE-OP DIAGNOSIS: Shortness of breath and hypoxemia TISSUE SUBMITTED: Bronchial biopsy DIAGNOSIS CYTOLOGY Left lower lung fluid (cytospins and cellblock): Negative for malignant cells. Negative for pneumocystis. Negative for fungal organisms. Negative for acid fast bacilli. See comment. AM.mr 08/28/2024 COMMENT AFB, GMS and PC stains with matched controls were used in the evaluation of this case. CYTOLOGY STUDY Slides are reviewed. CYTOLOGY GROSS Received is 10 ml of cloudy opaque mucoidy fluid labeled with the patient's name and and designated per the requisition as Left lower lobe lung fluid. Submitted for cytology preparation including cell block. Mr 08/27/2024 TC:5 CPT: 86268,85276 ,98304y5
[2024-08-27 00:35] LABS: Vancomycin, Trough Level 23.9 ug/mL (5.0-15.0)
--- NOTE | 2024-08-27 00:40 | PHA.PHARE_ITS ---
Consult Antibiotic Management Pharmacy has been consulted to manage selected antibiotic: Vancomycin Type of Intervention Type of Consult: Follow-up Labs Labs: Sodium 141 mmol/L (136-145) 08/26/24 05:21 Potassium 4.6 mmol/L (3.5-5.1) 08/26/24 05:21 Chloride 110 mmol/L (98-107) H 08/26/24 05:21 Carbon Dioxide 24.0 mmol/L (21.0-32.0) 08/26/24 05:21 Anion Gap 7 (5-15) 08/26/24 05:21 BUN 17 mg/dL (7-18) 08/26/24 05:21 Creatinine 1.16 mg/dL (0.70-1.30) 08/26/24 05:21 Est GFR (MDRD) Af Amer 85 mL/min (>60) 08/26/24 05:21 Est GFR (MDRD) Non-Af 70 mL/min (>60) 08/26/24 05:21 BUN/Creatinine Ratio 14.7 RATIO (10-20) 08/26/24 05:21 Glucose 117 mg/dL (74-106) H 08/26/24 05:21 Vancomycin Trough 23.9 ug/mL (5.0-15.0) H 08/27/24 00:06 Microbiology Microbiology: Microbiology 08/24/24 15:10 Sputum, Expectorated/Coughed Gram Stain - Final 08/24/24 15:10 Sputum, Expectorated/Coughed Respiratory Culture - Final Mixed normal respiratory deniz. No Streptococcus pneumoniae, beta-hemolytic Streptococcus or Staphylococcus aureus isolated. 08/23/24 21:55 Blood Culture (Wb) - Anticubital Left Blood Culture - Preliminary No growth in 48 hours. 08/25/24 08:30 Nasal Secretion MRSA (PCR) - Final Meth. resistant Staph. aureus 08/24/24 03:14 Mucosa - Nasopharyngeal Respiratory Panel (PCR) - Final 08/24/24 00:27 Urine, Clean Catch Legionella Antigen - Final 08/24/24 00:27 Urine, Clean Catch Streptococcus pneumoniae Antigen (M - F inal 08/23/24 21:56 Mucosa - Nose SARS-CoV-2, Influenza & RSV (PCR) - Final Pharmacy Plan for Drug Dosing Pharmacy Plan for Drug Dosing: Pharmacy Service will continue to monitor and adjust dosing as required. TROUGH 23.9 @ 6 hours. HOLD DOSE AND DRAW RANDOM LEVEL IN 8 HOURS Follow-Up Labs Follow-Up Labs: Trough: Vancomycin Date/Time Labs Ordered Labs to be done on [date and time ordered]: 08/27 @ 0800
[2024-08-27] MEDS: Piperacil/Tazobactam 3.375 GM in 0.9% Normal Saline (50mL MB+) 50 ML IV ×3 (05:03→21:23)
--- NOTE | 2024-08-27 05:45 | RAD_ITS ---
INDICATION: PTX follow up EXAMINATION/TECHNIQUE: X-RAY - XR Chest 1 View COMPARISON: None. Findings: Single frontal view of the chest. Low lung volumes. LUNG PARENCHYMA: Stable multifocal patchy bilateral airspace disease. PLEURA: No pleural effusion. No pneumothorax. HEART/GREAT VESSELS: Cardiomediastinal silhouette is unremarkable. BONES: Osseous structures are unremarkable for age. RAD/Chest 1 View (Portable) IMPRESSION: Stable multifocal patchy bilateral airspace disease, to include pneumonia. Recommend continued follow-up to resolution. Electronically Signed: Martinez Serra MD at 7:06 EST ,
[2024-08-27 08:00] LABS: Absolute Lymphocyte Count 2.57 X10^3/uL (0.83-4.51); Absolute Neutrophil Count 7.9 X10^3/uL (2.0-7.7); Basophil% 0.9 % (0-1); Eosinophil# 0.27 X10^3/uL; Eosinophils% 2.3 % (0-5); Hematocrit 39.8 % (40-54); Hemoglobin 13.1 g/dL (13.0-16.5); Lymphocyte # 2.57 X10^3/ul (0.83-4.51); Lymphocyte % 22.1 % (19-41); Mean Corp Hgb Conc 32.9 g/dL (32-36); Mean Corpuscular Hgb 27.8 pg (27.0-32.0); Mean Corpuscular Volume 84.3 fL (80-94); Mean Platelet Vol. 8.6 fl (6.2-12.0); Monocyte# 0.62 X10^3/uL; Monocyte% 5.3 % (0-10); NRBC Flagged by Analyzer 0 % (0-5); Neutrophil % 67.8 % (47-70); POSITIVE COUNT YES; Platelet Count 812 K/mm3 (150-450); RBC Distribution Width CV 13.3 % (11.6-14.6); RBC Distribution Width SD 41.1 fl (35.1-43.9); Red Blood Count 4.72 M/mm3 (4.6-6.2); White Blood Count 11.7 K/mm3 (4.4-11.0)
[2024-08-27 08:11] LABS: Differential Indicated SCAN CRITERIA MET
[2024-08-27 08:33] LABS: Anion Gap 6 (5-15); BUN 22 mg/dL (7-18); Chloride 111 mmol/L (98-107); Creatinine, Serum 0.96 mg/dL (0.70-1.30); EST Glomerular Filtration Rate 87 mL/min (>60); Est Glom Filt Rate - Afr Amer 106 mL/min (>60); Estimated Creatinine Clearance 106.64 ml/min; Glucose 106 mg/dL (74-106); Potassium 4.7 mmol/L (3.5-5.1); Sodium Level 141 mmol/L (136-145); Vancomycin, Random Level 14.5 ug/mL (0.0-15.0)
[2024-08-27 08:58] LABS: Platelet Estimate MKD INC (ADEQ)
--- NOTE | 2024-08-27 09:24 | PHA.PHARE_ITS ---
Consult Antibiotic Management Pharmacy has been consulted to manage selected antibiotic: Vancomycin Type of Intervention Type of Consult: Follow-up Labs Labs: Sodium 141 mmol/L (136-145) 08/27/24 07:52 Potassium 4.7 mmol/L (3.5-5.1) 08/27/24 07:52 Chloride 111 mmol/L (98-107) H 08/27/24 07:52 Carbon Dioxide 24.0 mmol/L (21.0-32.0) 08/27/24 07:52 Anion Gap 6 (5-15) 08/27/24 07:52 BUN 22 mg/dL (7-18) H 08/27/24 07:52 Creatinine 0.96 mg/dL (0.70-1.30) 08/27/24 07:52 Est GFR (MDRD) Af Amer 106 mL/min (>60) 08/27/24 07:52 Est GFR (MDRD) Non-Af 87 mL/min (>60) 08/27/24 07:52 BUN/Creatinine Ratio 23.0 RATIO (10-20) H 08/27/24 07:52 Glucose 106 mg/dL (74-106) 08/27/24 07:52 Vancomycin Trough 23.9 ug/mL (5.0-15.0) H 08/27/24 00:06 Random Vancomycin 14.5 ug/mL (0.0-15.0) 08/27/24 07:52 Microbiology Microbiology: Microbiology 08/24/24 15:10 Sputum, Expectorated/Coughed Gram Stain - Final 08/24/24 15:10 Sputum, Expectorated/Coughed Respiratory Culture - Final Mixed normal respiratory deniz. No Streptococcus pneumoniae, beta-hemolytic Streptococcus or Staphylococcus aureus isolated. 08/23/24 21:55 Blood Culture (Wb) - Anticubital Left Blood Culture - Preliminary No growth in 48 hours. 08/25/24 08:30 Nasal Secretion MRSA (PCR) - Final Meth. resistant Staph. aureus 08/24/24 03:14 Mucosa - Nasopharyngeal Respiratory Panel (PCR) - Final 08/24/24 00:27 Urine, Clean Catch Legionella Antigen - Final 08/24/24 00:27 Urine, Clean Catch Streptococcus pneumoniae Antigen (M - Final 08/23/24 21:56 Mucosa - Nose SARS-CoV-2, Influenza & RSV (PCR) - Final Pharmacy Plan for Drug Dosing Pharmacy Plan for Drug Dosing: VANCOMYCIN LEVEL RECEIVED Current Vancomycin Dose: held Number of Doses Received: 8 Vancomycin Level: 14.5 mg/dL Hours Since Last Dose: 14 Renal Function: SCr 0.96 mg/dL, CrCl 106mL/min Renal Function Trend: improved Lab/Micro: SCx normal deniz Vancomycin Plan/Comments: 14 hour random level is now subtherapeutic (goal 15- 20mg/dL). Will restart dosing at 1000mg Q8 and get a level prior to 4th dose per policy. Pending Level: 08/28/24 @ 0830 Pharmacy Service will continue to monitor and adjust dosing as required.
--- NOTE | 2024-08-27 10:32 | PRE.ANES_ITS ---
ASA Classification* ASA Classification ASA Classification: 3 Assessment & Plan Anesthesia* Anesthesia Assessment Anesthesia Assessment: Discussed sedation and/or anesthesia options, risks, benefits, and alternatives with patient/parents/legal guardian/POA. Questions invited. The patient/parents/legal guardian/POA seems to understand and agrees to proceed with anesthesia plan. Reviewed the physical assessment, medical history, allergy history and patient home medications list prior to surgery/procedure/anesthetic and documented any changes. Performed airway and anesthesia risk assessments. Anesthesia Type Anesthesia Type: MAC Anesthesia Focused Assessment* Temperature: 98.4 F Pulse Rate: 81 Blood Pressure: 130/85 Respiratory Rate: 20 Pulse Ox: 94 Airway Assessment Mouth opens: >3 cm Mallampati Score: II Focused Labs Anesthesia Preop lab: CBC WBC 11.7 K/mm3 (4.4-11.0) H 08/27/24 07:52 RBC 4.72 M/mm3 (4.6-6.2) 08/27/24 07:52 Hgb 13.1 g/dL (13.0-16.5) 08/27/24 07:52 Hct 39.8 % (40-54) L 08/27/24 07:52 Plt Count 812 K/mm3 (150-450) H* 08/27/24 07:52 CHEMISTRY Potassium 4.7 mmol/L (3.5-5.1) 08/27/24 07:52 Sodium 141 mmol/L (136-145) 08/27/24 07:52 BUN 22 mg/dL (7-18) H 08/27/24 07:52 Creatinine 0.96 mg/dL (0.70-1.30) 08/27/24 07:52 Glucose 106 mg/dL (74-106) 08/27/24 07:52 TSH 1.050 uIU/mL (0.358-3.740) 08/24/24 05:15 COAG PT 14.6 SECONDS (11.7-14.9) 08/23/24 21:55 Pre-Assessment Diagnosis/Proposed Procedure Planned Operative Procedure(s): Bronchoscopy Anesthesia History 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 When Was Last Pacemaker Check QUESTION #4 FULL TEXT: You/Your Family Experience fever (hyperthermia) with Anesthesia Last Oral Intake Last Oral intake: Last Oral Intake NPO since Meds taken in AM with sips of water? Meds patient instructed to take am of surgery PONV PONV - health social work professor: PONV - health social work professor Female HX of Motion Sickness HX of N/V After Surgery Non-Smoker Duration of Surgery greater than 60 minutes Number of Risk Factors PONV Score Height & Weight Height & Weight: Anesthesia: Height & Weight Height 6 ft 08/24/24 11:19 Weight: 95.4 kg 08/24/24 11:19 Body Mass Index (BMI) 28.5 08/24/24 01:07 Respiratory Assessment Respiratory Assessment - health social work professor: Respiratory Tract Infection Hx - health social work professor Hx Respiratory Tract Infection No 09/18/22 10:45 STOP Sleep Apnea STOP Sleep Apnea - health social work professor: STOP Sleep Apnea - health social work professor Hx Hypertension No 08/24/24 01:07 Hx Sleep Apnea No 08/24/24 01:07 CPAP BIPAP Do you snore loudly (louder No 08/24/24 01:07 than talking or can be heard Do you often feel tired/ No 08/24/24 01:07 fatigued/ sleepy during daytime? Has anyone observed you stop No 08/24/24 01:07 breathing during sleep? STOP Results Negative 08/24/24 01:07 QUESTION #5 FULL TEXT : Do you snore loudly (louder than talking or can be heard through closed doors)? 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 Specify any problems Hx of Preganancy in last 3 N/A 08/24/24 01:07 Months Nurse Filling Out Transfusion RSMAILES 08/24/24 01:07 & Questions: Date: 08/24/24 08/24/24 01:07 Time: 01:27 08/24/24 01:07 Patient unable to answer at this time (ie. confused, unrespo /Reproduction History /Reproductive History - health social work professor: /Reproductive Hx- health social work professor Hx Now Gestational Age (in weeks): EDC: Hx Hx Para Hx Section SAB Active Medications Active Medications: Current Medications Generic Name Dose Route Start Last Admin Trade Name Freq PRN Reason Stop Dose Admin Acetaminophen 650 mg 08/24/24 01:06 08/24/24 15:12 Acetaminophen 325 Mg Tablet PO 650 mg Q6H PRN PRN Administration Pain 1-5/10 or Fever Acyclovir 400 mg 08/24/24 10:00 08/26/24 21:08 Acyclovir 200 Mg Capsule PO 400 mg BID ILSA Administration Ascorbic Acid 1,000 mg 08/24/24 08:00 08/26/24 17:28 Ascorbic Acid 500 Mg Tablet PO 1,000 mg BIDCM ILSA Administration Azithromycin 500 mg 08/26/24 14:00 08/26/24 14:22 Azithromycin 250 Mg Tablet PO 500 mg Q24 ILSA Administration Cholecalciferol 125 mcg 08/24/24 10:00 08/26/24 09:04 Cholecalciferol (Vit D3) 125 Mcg Capsule (5,000 Units) PO 125 mcg DAILY ILSA Administration Emtricitabine/Tenofovir 1 tablet 08/24/24 22:00 08/26/24 21:08 Emtricitabine/Tenofovir 1 Tablet Tablet PO 08/30/24 22:01 1 tablet QHS ILSA Administration Enoxaparin Sodium 40 mg 08/24/24 10:00 08/26/24 09:04 Enoxaparin 40 Mg/0.4 Ml Syringe SC Not Given DAILY ILSA Vancomycin IV-PHARMACY TO DOSE 500 mls @ 250 mls/hr 08/24/24 01:06 1 each/ Sodium Chloride IV PRN PRN Rx to Dose Protocol Piperacillin Sod/Tazobactam 50 mls @ 12.5 mls/hr 08/24/24 06:00 08/27/24 09:27 Sod 3.375 gm/ Sodium Chloride IV Infused Q8 ILSA Infusion Vancomycin HCl 1,000 mg in 200 mls @ 200 mls/hr 08/27/24 09:00 Vancomycin IV Q8H ILSA Morphine Sulfate 2 mg 08/24/24 01:06 Morphine 2 Mg/Ml Syringe IV Q4H PRN PRN Pain Score 6-10 Pantoprazole Sodium 40 mg 08/24/24 10:00 08/26/24 09:04 Pantoprazole Sodium 40 Mg Tablet PO 40 mg DAILY ILSA Administration Raltegravir 400 mg 08/24/24 22:00 08/26/24 21:08 Raltegravir Potassium 400 Mg Tablet PO 08/31/24 10:01 400 mg BID ILSA Administration Sodium Chloride 10 - 40 ml 08/24/24 01:14 08/26/24 09:56 0.9% Saline Lock 10 Ml Syringe IV 10 ml UD PRN Administration SALINE FLUSH Vancomycin Protocol 1 lab 08/28/24 06:30 Vancomycin Trough/Random Due 08/28/24 10:30 DAILY ILSA Zinc Sulfate 50 mg 08/24/24 10:00 08/26/24 09:04 Zinc Sulfate 50 Mg Zinc (220 Mg) Oral Capsule PO 50 mg DAILY ILSA Administration PFS Medical History (Updated 08/26/24 @ 10:01 by Cat Eldridge) MRSA (methicillin resistant staph aureus) culture positive Current every day cannabis vapor product user Wears glasses Excessive bleeding HSV infection HIV disease Home Medications ?Medication ?Instructions ?Recorded ?Last Taken ?Type acyclovir 400 mg tablet 400 mg PO BID herpes 07/28/20 Unknown History bictegravir 50 mg-emtricitabine 1 tab PO QHS HIV 10/11/20 Unknown History 200 mg-tenofovir alafenam 25 mg tablet amoxicillin 500 mg capsule 1,000 mg (2 x 500 mg) PO TID 10 08/14/24 08/23/24 Rx days #60 caps Allergy/AdvReac Type Severity Reaction Status Date / Time No Known Allergies Allergy Verified 08/27/24 10:24 Family History Father Cancer melanoma Colon cancer Hypertension Grandmother Diabetes Aunt Diabetes Other Dementia Surgical History History of appendectomy Social History Smoking Status: Never smoker alcohol intake: current alcohol intake frequency: holidays/special occasions only substance use type: marijuana what type of physical activity do you participate in: other details: active job Review of Systems (Anesthesia) ROS Narrative System reviewed and no additional complaints, except as documented.
--- NOTE | 2024-08-27 10:44 | PN.HOSP_ITS ---
Subjective Subjective No issues overnight, respiratory status is stable while at rest, however yesterday he did require 8 L nasal cannula with ambulation Objective Data Objective Data Vital Signs: Vital Signs Temp Pulse Resp BP Pulse Ox O2 Del Method O2 Flow Rate 98.4 F 81 20 H 130/85 H 94 Nasal Cannula 3 08/27/24 10:33 08/27/24 10:33 08/27/24 10:33 08/27/24 10:33 08/27/24 10:33 08/27/24 07:58 08/27/24 10:33 Oxygen Flow Rate (L/min) [ 8 AMBULATING with Oxygen #4] Oxygen Flow Rate (L/min) [ 6 AMBULATING with Oxygen #3] Oxygen Flow Rate (L/min) [ 4 AMBULATING with Oxygen #2] Oxygen Flow Rate (L/min) [ 2 AMBULATING with Oxygen #1] Oxygen Flow Rate (L/min) [At 2 REST with Oxygen] Oxygen Flow Rate (L/min) 3 Oxygen Delivery Method Nasal Cannula Weight: 210 lb 5.136 oz Body Mass Index (BMI) 28.5 Intake & Output: Intake and Output for Last 24 Hours 08/26/24 08/27/24 08/28/24 03:59 03:59 03:59 Intake Total 2135 / 2135 1900 / 1900 50 / 50 Output Total 2900 / 2900 4000 / 4000 800 / 800 Balance -765 / -765 -2100 / -2100 -750 / -750 Lab / Micro Data 08/27/24 07:52 08/27/24 07:52 Labs: Laboratory Results - last 24 hr 08/27/24 00:06: Vancomycin Trough 23.9 H 08/27/24 07:52: WBC 11.7 H, RBC 4.72, Hgb 13.1, Hct 39.8 L, MCV 84.3, MCH 27.8, MCHC 32.9, RDW Std Deviation 41.1, RDW Coeff of Romel 13.3, Plt Count 812 H*, MPV 8.6, Immature Gran % (Auto) 1.600 H, Neut % (Auto) 67.8, Lymph % (Auto) 22.1, Love % (Auto) 5.3, Eos % (Auto) 2.3, Baso % (Auto) 0.9, Absolute Neuts (auto) 7.9 H, Absolute Lymphs (auto) 2.57, Nucleated RBC % 0, Diff Path Review May foll, Platelet Estimate MKD INC, Sodium 141, Potassium 4.7, Chloride 111 H, Carbon Dioxide 24.0, Anion Gap 6, BUN 22 H, Creatinine 0.96, Estim Creat Clear Calc 106.64, Est GFR (MDRD) Af Amer 106, Est GFR (MDRD) Non-Af 87, B UN/Creatinine Ratio 23.0 H, Glucose 106, Calcium 9.0, Random Vancomycin 14.5 Micro: Microbiology 08/24/24 15:10 Sputum, Expectorated/Coughed Gram Stain - Final 08/24/24 15:10 Sputum, Expectorated/Coughed Respiratory Culture - Final Mixed normal respiratory deniz. No Streptococcus pneumoniae, beta-hemolytic Streptococcus or Staphylococcus aureus isolated. 08/23/24 21:55 Blood Culture (Wb) - Anticubital Left Blood Culture - Preliminary No growth in 48 hours. 08/25/24 08:30 Nasal Secretion MRSA (PCR) - Final Meth. resistant Staph. aureus 08/24/24 03:14 Mucosa - Nasopharyngeal Respiratory Panel (PCR) - Final 08/24/24 00:27 Urine, Clean Catch Legionella Antigen - Final 08/24/24 00:27 Urine, Clean Catch Streptococcus pneumoniae Antigen (M - Final 08/23/24 21:56 Mucosa - Nose SARS-CoV-2, Influenza & RSV (PCR) - Final Radiography Diagnostic Testing: Radiology Impression Chest X-Ray 08/27/24 05:45 IMPRESSION: Stable multifocal patchy bilateral airspace disease, to include pneumonia. Recommend continued follow-up to resolution. Electronically Signed: Martinez Serra MD at 7:06 [facility] , Physical Exam Narrative General: Alert, Oriented x3, Cooperative, No apparent distress HEENT: Atraumatic, PERRLA, EOMI, Normocephalic Oral: Moist Mucosa Neck: Supple, No JVD Lungs: Diminished, Normal air movement, No rhonchi, No wheeze, No rales Cardiovascular: Regular rate, Regular Rhythm, Normal S1, Normal S2, No murmurs Abdomen: Soft, Non Tender, Non-Distended, No Hepato-splenomegaly Extremities: No edema, Capillary Refill Less than 3 Seconds Skin: No rashes, No breakdown Musculoskeletal: No Tenderness to Palpation of Joints or Extremities Neurological: No focal neurological deficits, Motor Exam 5/5 strength throughout, Sensory exam intact to light touch and pain Psych/Mental Status: Normal Affect, Appropriate Assessment & Plan Assessment/Plan (1) Pneumonia: QUALIFIERS: Pneumonia type: due to unspecified organism L aterality: bilateral Lung location: unspecified part of lung Qualified Code(s): J18.9 - Pneumonia, unspecified organism (2) Pneumothorax on right: (3) Respiratory insufficiency: (4) Reactive thrombocytosis: PLAN: Plan 1. Bilateral pneumonia failing outpatient treatment with 2.1 cm right basilar pneumothorax with respiratory insufficiency sepsis rule out/HIV ? Appreciate pulmonology and ID assistance ? Continue with broad-spectrum antibiotics, sputum cultures with mixed normal deniz however MRSA PCR is also positive. Continue with azithromycin for broader atypical coverage ? Legionella and strep antigen negative as his viral panel ? Blood cultures are negative ? Continue with his HIV medications ? Chest x-ray today demonstrates some improvement in his pneumothorax ? Reactive thrombocytosis ? Continue with herpes prophylaxis with acyclovir ?Will repeat another dose of Lasix today plan for bronchoscopy DVT: Lovenox Charges/Coding Visit Charges Inpatient E&M: 16936 Subs Hosp L2
--- NOTE | 2024-08-27 11:03 | CPS ---
aerosol rx given in ac prior to procedure. pt alvaro well. nurse aware of rx,
[2024-08-27] MEDS: Lidocaine 2% (5ml sdv) 5 ML VIAL.MPF (11:20)
[2024-08-27] MEDS: Lidocaine Jelly 2% 20 ML Syringe (URO-JET) 1 APPLIC (11:20)
--- NOTE | 2024-08-27 11:33 | OP.BRONCH_ITS ---
Patient Name: Parth Moreno Procedure Date: 08/27/2024 10:59 AM Date of : 1970 Age: 54 Procedure: Bronchoscopy Indications: HIV positive with bilateral infiltrates Providers: Kingsley Johansen MD Requesting Physician: Joseph Boles Md Medicines: See the Anesthesia note for documentation of the administered medications Complications: No immediate complications Procedure: Pre-Anesthesia Assessment: - A History and Physical has been performed. Patient meds and allergies have been reviewed. The risks and benefits of the procedure and the sedation options and risks were discussed with the patient. All questions were answered and informed consent was obtained. Patient identification and proposed procedure were verified prior to the procedure by the physician and the nurse in the procedure room. Mental Status Examination: alert and oriented. Airway Examination: normal oropharyngeal airway. Respiratory Examination: clear to auscultation. CV Examination: normal. ASA Grade Assessment: II - A patient with mild systemic disease. After reviewing the risks and benefits, the patient was deemed in satisfactory condition to undergo the procedure. The anesthesia plan was to use monitored anesthesia care (MAC). Immediately prior to administration of medications, the patient was re-assessed for adequacy to receive sedatives. The heart rate, respiratory rate, oxygen saturations, blood pressure, adequacy of pulmonary ventilation, and response to care were monitored throughout the procedure. The physical status of the patient was re-assessed after the procedure. After I obtained informed consent, the scope was passed under direct vision. Throughout the procedure, the patient's blood pressure, pulse, and oxygen saturations were monitored continuously. The bronchoscope was introduced through the mouth and advanced to the tracheobronchial tree. The procedure was accomplished without difficulty. The patient tolerated the procedure well. Findings: The oropharynx appears normal. The larynx appears normal. The vocal cords appear normal. The subglottic space is normal. The trachea is of normal caliber. The rima is sharp. The tracheobronchial tree was examined to at least the first subsegmental level. Bronchial mucosa and anatomy are normal; there are no endobronchial lesions, and no secretions. The bronchoscope was advanced until wedged at the desired location for bronchoalveolar lavage. BAL was performed in the left lower lobe of the lung and sent for cell count, bacterial culture, viral smears & culture, and fungal & AFB analysis and cytology. 80 mL of fluid were instilled. 30 mL were returned. The return was cloudy. There were no mucoid plugs in the return fluid. Impression: - HIV positive with bilateral infiltrates - The airway examination was normal. - Bronchoalveolar lavage was performed. Recommendation: - Await BAL results. Procedure Code(s): --- Professional --- 21786, Bronchoscopy, rigid or flexible, including fluoroscopic guidance, when performed; with bronchial alveolar lavage Diagnosis Code(s): --- Professional --- B20, Human immunodeficiency virus [HIV] disease R91.8, Other nonspecific abnormal finding of lung field CPT copyright 2021 [employer]. All rights reserved. The codes documented in this report are preliminary and upon irrigation flume layer review may be revised to meet current compliance requirements. DO Kingsley Tsang MD 08/27/2024 11:33:09 AM This report has been signed electronically. Number of Addenda: 0 Note Initiated On: 08/27/2024 10:59 AM
--- NOTE | 2024-08-27 11:41 | PCM.POST.ANE ---
Anesthesia: Postop Eval I Current Vital Signs Temperature: 97 F Pulse Rate: 87 Blood Pressure: 90/67 Respiratory Rate: 18 Pulse Ox: 99 Oxygen Delivery Method: Simple Mask Oxygen Flow Rate (L/min): 6 Assessment Airway patent: Yes Spontaneous unlabored respirations: Yes Mental status: Awake nausea: No Vomiting: No Anesthesia Complication: No Fluid Hydration Crystalloid volume administer (ml): 10 Total IV fluid infused: 10 Progress Note Anesthesia document: Postop Eval 1 completed: Yes
[2024-08-27 11:51] LABS: Cytology, Body Fluid / CSF SEE PATHOLOGY REPORT
--- NOTE | 2024-08-27 11:51 | PN.CC_ITS ---
Assessment & Plan Assessment/Plan (1) Pneumothorax on right: (2) Sepsis: QUALIFIERS: Sepsis type: sepsis due to unspecified organism S epsis acute organ dysfunction status: without acute organ dysfunction Qualified Code(s): A41.9 - Sepsis, unspecified organism (3) Hypoxia: PLAN: Plan RECOMMENDATIONS: 1. Continue supplemental oxygen. 2. Obtain follow-up chest x-ray tomorrow morning (or sooner if the patient becomes more symptomatic) 3. Antimicrobials per ID recommendations. Plan to proceed with bronchoscopy with BAL today. 4. If pneumothorax enlarges (greater than 2 cm of pleural separation) consider tube thoracotomy 5. Encourage incentive spirometer use and mobilize patient as tolerated. IMPRESSIONS: 1. Shortness of breath and hypoxemia Appears to be secondary to a combination of progressive multifocal airspace disease coupled with small right spontaneous pneumothorax, without clear precipitating etiology. The patient is stable from a respiratory perspective. He remains on antimicrobials, which are being managed by infectious diseases. The patient's pneumothorax remains small on chest imaging. If the patient's pneumothorax enlarges or the patient becomes more symptomatic, would then consider tube thoracotomy. Plan to proceed with bronchoscopy later today. 2. History of HIV on HAART/reactive thrombocytosis/chronic cannabis use Complicates care, management, recovery and prognosis. Continue supportive measures as noted above. Encourage incentive spirometer use and mobilize patient as tolerated. This note was generated with [employer] dictation software. It may contain incorrect words, spelling, and punctuation that were not noted in checking the note before signing. Subjective Subjective The patient was seen and examined at the bedside this morning. Events from the last 24 hours have been reviewed. The patient is currently afebrile, hemodynamically stable and maintaining appropriate oxygen saturations on 3 L/min via nasal cannula. No overnight issues were identified. The patient has no specific complaints this morning. There are tentative plans to proceed with bronchoscopy with BAL. Objective Data Objective Data The patient's most recent lab work, culture data and imaging studies have all been personally reviewed. Sputum culture has not demonstrated any growth to date. Vital Signs: Vital Signs Temp Pulse Resp BP Pulse Ox O2 Del Method O2 Flow Rate 97 F L 85 26 H 92/68 99 Simple Mask 8 08/27/24 11:42 08/27/24 11:45 08/27/24 11:45 08/27/24 11:45 08/27/24 11:45 08/27/24 11:45 08/27/24 11:45 Oxygen Flow Rate (L/min) [ 8 AMBULATING with Oxygen #4] Oxygen Flow Rate (L/min) [ 6 AMBULATING with Oxygen #3] Oxygen Flow Rate (L/min) [ 4 AMBULATING with Oxygen #2] Oxygen Flow Rate (L/min) [ 2 AMBULATING with Oxygen #1] Oxygen Flow Rate (L/min) [At 2 REST with Oxygen] Oxygen Flow Rate (L/min) 8 Oxygen Delivery Method Simple Mask Weight: 210 lb 5.136 oz Body Mass Index (BMI) 28.5 Intake & Output: Intake and Output for Last 24 Hours 08/25/24 08/26/24 08/27/24 23:59 23:59 23:59 Intake Total 1655 / 2135 2655 / 2655 100 / 100 Output Total 2300 / 2900 4600 / 4600 800 / 800 Balance -645 / -765 -1945 / -1945 -700 / -700 Lab / Micro Data Attestation: I reviewed the patient's lab results. 08/27/24 07:52 08/27/24 07:52 Labs: Laboratory Results - last 24 hr 08/27/24 00:06: Vancomycin Trough 23.9 H 08/27/24 07:52: WBC 11.7 H, RBC 4.72, Hgb 13.1, Hct 39.8 L, MCV 84.3, MCH 27.8, MCHC 32.9, RDW Std Deviation 41.1, RDW Coeff of Romel 13.3, Plt Count 812 H*, MPV 8.6, Immature Gran % (Auto) 1.600 H, Neut % (Auto) 67.8, Lymph % (Auto) 22.1, [place] % (Auto) 5.3, Eos % (Auto) 2.3, Baso % (Auto) 0.9, Absolute Neuts (auto) 7.9 H, Absolute Lymphs (auto) 2.57, Nucleated RBC % 0, Diff Path Review May , Platelet Estimate MKD INC, Sodium 141, Potassium 4.7, Chloride 111 H, Carbon Dioxide 24.0, Anion Gap 6, BUN 22 H, Creatinine 0.96, Estim Creat Clear Calc 106.64, Est GFR (MDRD) Af Amer 106, Est GFR (MDRD) Non-Af 87, B UN/Creatinine Ratio 23.0 H, Glucose 106, Calcium 9.0, Random Vancomycin 14.5 Micro: Microbiology 08/24/24 15:10 Sputum, Expectorated/Coughed Gram Stain - Final 08/24/24 15:10 Sputum, Expectorated/Coughed Respiratory Culture - Final Mixed normal respiratory deniz. No Streptococcus pneumoniae, beta-hemolytic Streptococcus or Staphylococcus aureus isolated. 08/23/24 21:55 Blood Culture (Wb) - Anticubital Left Blood Culture - Preliminary No growth in 48 hours. 08/25/24 08:30 Nasal Secretion MRSA (PCR) - Final Meth. resistant Staph. aureus 08/24/24 03:14 Mucosa - Nasopharyngeal Respiratory Panel (PCR) - Final 08/24/24 00:27 Urine, Clean Catch Legionella Antigen - Final 08/24/24 00:27 Urine, Clean Catch Streptococcus pneumoniae Antigen (M - Final 08/23/24 21:56 Mucosa - Nose SARS-CoV-2, Influenza & RSV (PCR) - Final Radiography Diagnostic Testing: Radiology Impression Chest X-Ray 08/27/24 05:45 IMPRESSION: Stable multifocal patchy bilateral airspace disease, to include pneumonia. Recommend continued follow-up to resolution. Electronically Signed: Martinez Serra MD at 7:06 EST , Physical Exam Const alert and no apparent distress General Appearance: cooperative HEENT normocephalic, head/scalp atraumatic and moist oral mucous membranes Eyes EOMs intact bilaterally and conjunctivae normal Neck supple General: trachea midline Chest inspection of chest normal Resp normal respiratory effort Auscultation: Negative for rales, rhonchi or wheezes Cardio regular rate and regular rhythm GI normal to inspection, nondistended, normoactive bowel sounds Extremity no clubbing, cyanosis or edema Skin no rashes or lesions noted Neuro CN's II-XII intact bilaterally, moves all extremities and no focal motor deficits Psych cooperative and affect normal Charges/Coding Visit Charges Inpatient E&M: 97258 Subs Hosp L2
[2024-08-27 11:59] LABS: Pathologist Review Reviewed
[2024-08-27 12:27] LABS: Appearance/Body Fluid CLEAR; Color/Body Fluid COLORLESS
[2024-08-27 12:28] LABS: Red Cell Count/Body Fluid 25 /mm3
[2024-08-27 12:29] LABS: White Blood Count/Body Fluid 65 /mm3
[2024-08-27] MEDS: 0.9% Saline Lock 10 ML Syringe IV (12:32)
[2024-08-27] MEDS: Acyclovir 200 MG Capsule 400 MG PO ×2 (12:32→21:23)
[2024-08-27] MEDS: Pantoprazole Sodium 40 MG Tablet PO (12:32)
[2024-08-27] MEDS: Furosemide 40 MG/4 ML Vial IV (12:32)
[2024-08-27] MEDS: Azithromycin 250 MG Tablet 500 MG PO (12:32)
[2024-08-27] MEDS: Zinc Sulfate 50 mg zinc (220 mg) ORAL capsule PO (12:32)
[2024-08-27] MEDS: Cholecalciferol (Vit D3) 125 MCG CAPSULE (5,000 UNITS) PO (12:32)
[2024-08-27] MEDS: Ascorbic Acid 500 MG Tablet 1000 MG PO ×2 (12:33→17:39)
[2024-08-27] MEDS: Lactobacillis Acidophilus 1 CAP PO ×3 (12:33→21:22)
--- NOTE | 2024-08-27 12:35 | NURSING ---
all morning medications given late at this time due to procedure
[2024-08-27] MEDS: Vancomycin IV 1,000 MG/200 ML BAG 200 MG IV ×2 (12:37→21:18)
[2024-08-27] MEDS: RALTEGRAVIR POTASSIUM 400 MG TABLET PO ×2 (12:37→21:22)
[2024-08-27 13:51] LABS: Macrophages 2 %; Neutrophil (Segs) 98 %
[2024-08-27 13:52] LABS: Source- Body Fluid BRONCHIAL LAVAGE
--- NOTE | 2024-08-27 15:02 | PN.ID_ITS ---
Physical Exam Narrative Feeling a little better this AM, no fever, some cough Const alert and no apparent distress General Appearance: cooperative Resp normal air movement and clear to auscultation bilaterally Cardio regular rate and regular rhythm GI soft to palpation, non-tender and non-distended Skin no rashes or lesions noted ID ID: Route of nutrition/ use of supplements: [] Nutritional Intake: [] IV Site: [] Barragan Catheter: [] Assessment & Plan Assessment/Plan (1) Pneumothorax on right: (2) Pneumonia: QUALIFIERS: Pneumonia type: due to unspecified organism Laterality: bilateral Lung location: unspecified part of lung Qualified Co de(s): J18.9 - Pneumonia, unspecified organism PLAN: Ngtd on sputum cx, sputum AFB. Seen by pulm, pneumothorax seems to be improving. CD4 700 and VL undetectable 06/2024 and med compliant, so should not be at risk for PJP causing a pneumo. Resp viral panel neg. UAgs neg. Mild ALT/AST rise. Cont vanc/zosyn. Biktarvy not available, using raltegravir/truvada while inpatient. Not improving, checking mycoplasma, added azithro for atypical coverage, and this AM had bronch. D/w Dr. Johansen. Will follow (3) HIV disease:
--- NOTE | 2024-08-27 16:48 | PCM.POSTANE2 ---
Anesthesia Postop Eval I Sum Postop Eval Completion status Anesthesia document: Postop Eval 1 completed: Yes Anesthesia Postop Eval I Summary Anesthesia Postop Eval I Summary: Anesthesia Postop Eval I: Assessment Summary Airway patent Yes 08/27/24 11:42 [email or web address] Spontaneous unlabored Yes 08/27/24 11:42 [email or web address] respirations Mental status Awake 08/27/24 11:42 [email or web address] nausea No 08/27/24 11:42 [email or web address] Vomiting No 08/27/24 11:42 [email or web address] Anesthesia Postop Eval I: Fluid Summary Crystalloid volume administer 10 08/27/24 11:42 [email or web address] (ml) Colloids volume administered ( ml) Blood Product volume administered (ml) Total IV fluid infused 10 08/27/24 11:42 [email or web address] Anesthesia Postop Eval I: Summary Notes Anesthesia Complication No 08/27/24 11:42 [email or web address] Anesthesia Complication Comment: Post-operative progress note Anesthesia: Postop Eval II Evaluation Mental status: Awake Pain Level: 0 nausea: No Vomiting: No
[2024-08-27] MEDS: EMTRICITABINE/TENOFOVIR 1 TABLET TABLET PO (21:22)
[2024-08-27] MEDS: Acetaminophen 325 MG Tablet 650 MG PO (21:55)
[2024-08-28] VITALS (7 sets, daily range): BP systolic 116–126; BP diastolic 64–90; PULSE 77–92; RESP 15–20; TEMP 36.4–36.8; O2SAT 93–96
[2024-08-28] MEDS: Vancomycin IV 1,000 MG/200 ML BAG 200 MG IV ×2 (04:44→12:54)
--- NOTE | 2024-08-28 05:35 | RAD_ITS ---
INDICATION: PTX follow up EXAMINATION/TECHNIQUE: X-RAY - XR Chest 1 View AP portable. 5:35 AM COMPARISON: Prior study dated: 08/27/2024 FINDINGS: LINES/DEVICES: None. LUNGS: Bilateral infiltrates not significantly changed. There is a tiny residual right apical pneumothorax. . MEDIASTINUM: Unremarkable. CARDIAC SILHOUETTE: Not enlarged. BONES AND SOFT TISSUES: No acute abnormalities. RAD/Chest 1 View (Portable) IMPRESSION: Tiny residual right apical pneumothorax. No change bilateral infiltrates. Electronically Signed: Bhavya Carbone MD at 7:17 EST ,
[2024-08-28] MEDS: Piperacil/Tazobactam 3.375 GM in 0.9% Normal Saline (50mL MB+) 50 ML IV (05:54)
[2024-08-28 06:16] LABS: Absolute Lymphocyte Count 2.45 X10^3/uL (0.83-4.51); Absolute Neutrophil Count 6.4 X10^3/uL (2.0-7.7); Basophil# 0.11 X10^3/uL; Basophil% 1.1 % (0-1); Hematocrit 39.7 % (40-54); Hemoglobin 12.7 g/dL (13.0-16.5); Lymphocyte # 2.45 X10^3/ul (0.83-4.51); Lymphocyte % 24.8 % (19-41); Mean Corpuscular Hgb 27.3 pg (27.0-32.0); Mean Corpuscular Volume 85.2 fL (80-94); Mean Platelet Vol. 8.7 fl (6.2-12.0); Monocyte# 0.49 X10^3/uL; NRBC Flagged by Analyzer 0 % (0-5); Neutrophil # 6.39 X10^3/uL (2.7-7.7); Neutrophil % 64.8 % (47-70); POSITIVE COUNT YES; RBC Distribution Width CV 13.5 % (11.6-14.6); RBC Distribution Width SD 41.5 fl (35.1-43.9); Red Blood Count 4.66 M/mm3 (4.6-6.2); White Blood Count 9.9 K/mm3 (4.4-11.0)
[2024-08-28 06:31] LABS: Differential Indicated SCAN CRITERIA MET; Platelet Count 804 K/mm3 (150-450)
[2024-08-28 06:41] LABS: Anion Gap 4 (5-15); BUN 24 mg/dL (7-18); BUN/Creat Ratio 22.6 RATIO (10-20); Calcium,Total 8.8 mg/dL (8.5-10.1); Chloride 105 mmol/L (98-107); Creatinine, Serum 1.06 mg/dL (0.70-1.30); EST Glomerular Filtration Rate 78 mL/min (>60); Est Glom Filt Rate - Afr Amer 94 mL/min (>60); Estimated Creatinine Clearance 96.58 ml/min; Glucose 142 mg/dL (74-106); Potassium 4.3 mmol/L (3.5-5.1); Sodium Level 136 mmol/L (136-145)
[2024-08-28] MEDS: Pantoprazole Sodium 40 MG Tablet PO (08:47)
[2024-08-28] MEDS: Ascorbic Acid 500 MG Tablet 1000 MG PO ×2 (08:47→17:07)
[2024-08-28] MEDS: Lactobacillis Acidophilus 1 CAP PO ×4 (08:47→21:20)
[2024-08-28] MEDS: Cholecalciferol (Vit D3) 125 MCG CAPSULE (5,000 UNITS) PO (08:48)
[2024-08-28] MEDS: Zinc Sulfate 50 mg zinc (220 mg) ORAL capsule PO (08:48)
[2024-08-28] MEDS: Azithromycin 250 MG Tablet 500 MG PO (08:48)
[2024-08-28] MEDS: Acyclovir 200 MG Capsule 400 MG PO ×2 (08:48→21:20)
[2024-08-28] MEDS: RALTEGRAVIR POTASSIUM 400 MG TABLET PO ×2 (08:48→21:20)
[2024-08-28] MEDS: 0.9% Saline Lock 10 ML Syringe IV ×2 (08:57→21:20)
[2024-08-28] MEDS: Furosemide 40 MG/4 ML Vial IV (08:57)
[2024-08-28 09:59] LABS: Pathologist Comment/Body Fluid Reviewed
[2024-08-28 09:59] LABS: Pathologist Review Reviewed
--- NOTE | 2024-08-28 10:03 | PCM.PN.HOSP ---
Subjective Subjective No issues overnight, breathing is about baseline we will repeat ambulatory pulse ox this morning Objective Data Objective Data Vital Signs: Vital Signs Temp Pulse Resp BP Pulse Ox O2 Del Method O2 Flow Rate 97.8 F 80 15 125/71 H 93 Nasal Cannula 3 08/28/24 08:42 08/28/24 08:42 08/28/24 08:42 08/28/24 08:42 08/28/24 08:42 08/28/24 08:42 08/28/24 08:42 Oxygen Flow Rate (L/min) [ 8 AMBULATING with Oxygen #4] Oxygen Flow Rate (L/min) [ 6 AMBULATING with Oxygen #3] Oxygen Flow Rate (L/min) [ 6 AMBULATING with Oxygen #2] Oxygen Flow Rate (L/min) [ 4 AMBULATING with Oxygen #1] Oxygen Flow Rate (L/min) [At 4 REST with Oxygen] Oxygen Flow Rate (L/min) 3 Oxygen Delivery Method Nasal Cannula Weight: 210 lb 5.136 oz Body Mass Index (BMI) 28.5 Intake & Output: Intake and Output for Last 24 Hours 08/27/24 08/28/24 08/29/24 03:59 03:59 03:59 Intake Total 1900 / 1900 1350 / 1350 850 / 850 Output Total 4000 / 4000 2775 / 2775 Balance -2100 / -2100 -1425 / -1425 850 / 850 Lab / Micro Data 08/28/24 05:24 08/28/24 05:24 Labs: Laboratory Results - last 24 hr 08/26/24 05:21: Diff Path Review Reviewed 08/27/24 07:52: Diff Path Review Reviewed 08/27/24 11:44: Fluid Source BRONCHIAL LAVAGE, Fluid Color COLORLESS, Fluid Appearance CLEAR, Fluid WBC 65, Fluid RBC 25, Fluid Tot Cell Count TNP, Fluid Neutrophils 98, Fluid Macrophages 2, Fl Pathologist Comment Reviewed, Fluid Comment 2 Not Reportable 08/28/24 05:24: WBC 9.9, RBC 4.66, Hgb 12.7 L, Hct 39.7 L, MCV 85.2, MCH 27.3, MCHC 32.0, RDW Std Deviation 41.5, RDW Coeff of Romel 13.5, Plt Count 804 H*, MPV 8.7, Immature Gran % (Auto) 1.300 H, Neut % (Auto) 64.8, Lymph % (Auto) 24.8, [place] % (Auto) 5.0, Eos % (Auto) 3.0, Baso % (Auto) 1.1 H, Absolute Neuts (auto) 6.4, Absolute Lymphs (auto) 2.45, Nucleated RBC % 0, Diff Path Review May foll, Sodium 136, Potassium 4.3, Chloride 105, Carbon Dioxide 27.0, Anion Gap 4 L, BUN 24 H, Creatinine 1.06, Estim Creat Clear Calc 96.58, Est GFR (MDRD) Af Amer 94, Est GFR (MDRD) Non-Af 78, BUN/Creatinine Ratio 22.6 H, Glucose 142 H, Calcium 8.8 Micro: Microbiology 08/27/24 11:44 Bronchial Lavage - Left Lower Lobe Respiratory Culture - Preliminary Appears to be normal respiratory deniz. Further studies to follow. 08/24/24 15:10 Sputum, Expectorated/Coughed Gram Stain - Final 08/24/24 15:10 Sputum, Expectorated/Coughed Respiratory Culture - Final Mixed normal respiratory deniz. No Streptococcus pneumoniae, beta-hemolytic Streptococcus or Staphylococcus aureus isolated. 08/23/24 21:55 Blood Culture (Wb) - Anticubital Left Blood Culture - Preliminary No growth in 48 hours. 08/25/24 08:30 Nasal Secretion MRSA (PCR) - Final Meth. resistant Staph. aureus 08/24/24 03:14 Mucosa - Nasopharyngeal Respiratory Panel (PCR) - Final 08/24/24 00:27 Urine, Clean Catch Legionella Antigen - Final 08/24/24 00:27 Urine, Clean Catch Streptococcus pneumoniae Antigen (M - Final 08/23/24 21:56 Mucosa - Nose SARS-CoV-2, Influenza & RSV (PCR) - Final Radiography Diagnostic Testing: Radiology Impression Chest X-Ray 08/28/24 05:35 IMPRESSION: Tiny residual right apical pneumothorax. No change bilateral infiltrates. Electronically Signed: Bhavya Carbone MD at 7:17 EST , Physical Exam Narrative General: Alert, Oriented x3, Cooperative, No apparent distress HEENT: Atraumatic, PERRLA, EOMI, Normocephalic Oral: Moist Mucosa Neck: Supple, No JVD Lungs: Diminished, Normal air movement, No rhonchi, No wheeze, No rales Cardiovascular: Regular rate, Regular Rhythm, Normal S1, Normal S2, No murmurs Abdomen: Soft, Non Tender, Non-Distended, No Hepato-splenomegaly Extremities: No edema, Capillary Refill Less than 3 Seconds Skin: No rashes, No breakdown Musculoskeletal: No Tenderness to Palpation of Joints or Extremities Neurological: No focal neurological deficits, Motor Exam 5/5 strength throughout, Sensory exam intact to light touch and pain Psych/Mental Status: Normal Affect, Appropriate Assessment & Plan Assessment/Plan (1) Pneumonia: QUALIFIERS: Pneumonia type: due to unspecified organism Laterality: bilateral Lung location: unspecified part of lung Qualified Code(s): J18.9 - Pneumonia, unspecified organism (2) Pneumothorax on right: (3) Respiratory insufficiency: (4) Reactive thrombocytosis: PLAN: Plan 1. Bilateral pneumonia failing outpatient treatment with 2.1 cm right basilar pneumothorax with respiratory insufficiency sepsis rule out/HIV ? Appreciate pulmonology and ID assistance ? Continue with broad-spectrum antibiotics, sputum cultures with mixed normal deniz however MRSA PCR is also positive. Continue with azithromycin for broader atypical coverage, he did have a bronchial lavage yesterday, that culture data is pending ? Legionella and strep antigen negative as his viral panel ? Blood cultures are negative ? Continue with his HIV medications ? Chest x-ray today demonstrates almost complete resolution of his pneumothorax ? Reactive thrombocytosis ? Continue with herpes prophylaxis with acyclovir ?Will repeat another dose of Lasix today and repeat amatory pulse ox to see for making any improvement DVT: Lovenox Charges/Coding Visit Charges Inpatient E&M: 27495 Subs Hosp L2
--- NOTE | 2024-08-28 10:45 | PCM.PN.INT ---
Assessment & Plan Assessment/Plan (1) Pneumothorax on right: (2) Sepsis: QUALIFIERS: Sepsis type: sepsis due to unspecified organism Sepsis acute organ dysfunction status: without acute organ dysfunction Qualified Code(s): A41.9 - Sepsis, unspecified organism (3) Hypoxia: PLAN: Plan RECOMMENDATIONS: 1. Continue supplemental oxygen. 2. Obtain follow-up chest x-ray tomorrow morning (or sooner if the patient becomes more symptomatic) 3. Antimicrobials per ID recommendations. 4. If pneumothorax enlarges (greater than 2 cm of pleural separation) consider tube thoracotomy 5. Encourage incentive spirometer use and mobilize patient as tolerated. IMPRESSIONS: 1. Shortness of breath and hypoxemia Appears to be secondary to a combination of progressive multifocal airspace disease coupled with small right spontaneous pneumothorax, without clear precipitating etiology. The patient is stable from a respiratory perspective. He remains on antimicrobials, which are being managed by infectious diseases. The patient's pneumothorax remains small on chest imaging. If the patient's pneumothorax enlarges or the patient becomes more symptomatic, would then consider tube thoracotomy. Bronchoscopy completed on August 27 with BAL was largely unremarkable. 2. History of HIV on HAART/reactive thrombocytosis/chronic cannabis use Complicates care, management, recovery and prognosis. Continue supportive measures as noted above. Encourage incentive spirometer use and mobilize patient as tolerated. This note was generated with [employer] dictation software. It may contain incorrect words, spelling, and punctuation that were not noted in checking the note before signing. Subjective Subjective The patient was seen and examined at the bedside this morning. Events from the last 24 hours have been reviewed. The patient is currently afebrile, hemodynamically stable and maintaining appropriate oxygen saturations on 3 L/min. Bronchoscopy completed yesterday demonstrated normal airways without any significant secretions. Breathing quality is overall stable. He has yet to complete a walking oximetry today. Pneumothorax is barely perceivable on chest imaging from this morning. Objective Data Objective Data The patient's most recent lab work, culture data and imaging studies have all been personally reviewed. Sputum culture has not demonstrated any growth to date. Vital Signs: Vital Signs Temp Pulse Resp BP Pulse Ox O2 Del Method O2 Flow Rate 97.8 F 80 15 125/71 H 93 Nasal Cannula 3 08/28/24 08:42 08/28/24 08:42 08/28/24 08:42 08/28/24 08:42 08/28/24 08:42 08/28/24 08:42 08/28/24 08:42 Oxygen Flow Rate (L/min) [ 8 AMBULATING with Oxygen #4] Oxygen Flow Rate (L/min) [ 6 AMBULATING with Oxygen #3] Oxygen Flow Rate (L/min) [ 6 AMBULATING with Oxygen #2] Oxygen Flow Rate (L/min) [ 4 AMBULATING with Oxygen #1] Oxygen Flow Rate (L/min) [At 4 REST with Oxygen] Oxygen Flow Rate (L/min) 3 Oxygen Delivery Method Nasal Cannula Weight: 210 lb 5.136 oz Body Mass Index (BMI) 28.5 Intake & Output: Intake and Output for Last 24 Hours 08/26/24 08/27/24 08/28/24 23:59 23:59 23:59 Intake Total 2655 / 2655 1050 / 1350 1200 / 1200 Output Total 4600 / 4600 2175 / 2775 600 / 600 Balance -1945 / -1945 -1125 / -1425 600 / 600 Lab / Micro Data Attestation: I reviewed the patient's lab results. 08/28/24 05:24 08/28/24 05:24 Labs: Laboratory Results - last 24 hr 08/26/24 05:21: Diff Path Review Reviewed 08/27/24 07:52: Diff Path Review Reviewed 08/27/24 11:44: Fluid Source BRONCHIAL LAVAGE, Fluid Color COLORLESS, Fluid Appearance CLEAR, Fluid WBC 65, Fluid RBC 25, Fluid Tot Cell Count TNP, Fluid Neutrophils 98, Fluid Macrophages 2, Fl Pathologist Comment Reviewed, Fluid Comment 2 Not Reportable 08/28/24 05:24: WBC 9.9, RBC 4.66, Hgb 12.7 L, Hct 39.7 L, MCV 85.2, MCH 27.3, MCHC 32.0, RDW Std Deviation 41.5, RDW Coeff of Romel 13.5, Plt Count 804 H*, MPV 8.7, Immature Gran % (Auto) 1.300 H, Neut % (Auto) 64.8, Lymph % (Auto) 24.8, Dare % (Auto) 5.0, Eos % (Auto) 3.0, Baso % (Auto) 1.1 H, Absolute Neuts (auto) 6.4, Absolute Lymphs (auto) 2.45, Nucleated RBC % 0, Diff Path Review May foll, Sodium 136, Potassium 4.3, Chloride 105, Carbon Dioxide 27.0, Anion Gap 4 L, BUN 24 H, Creatinine 1.06, Estim Creat Clear Calc 96.58, Est GFR (MDRD) Af Amer 94, Est GFR (MDRD) Non-Af 78, BUN/Creatinine Ratio 22.6 H, Glucose 142 H, Calcium 8.8 Micro: Microbiology 08/27/24 11:44 Bronchial Lavage - Left Lower Lobe Respiratory Culture - Preliminary Appears to be normal respiratory deniz. Further studies to follow. 08/24/24 15:10 Sputum, Expectorated/Coughed Gram Stain - Final 08/24/24 15:10 Sputum, Expectorated/Coughed Respiratory Culture - Final Mixed normal respiratory deniz. No Streptococcus pneumoniae, beta-hemolytic Streptococcus or Staphylococcus aureus isolated. 08/23/24 21:55 Blood Culture (Wb) - Anticubital Left Blood Culture - Preliminary No growth in 48 hours. 08/25/24 08:30 Nasal Secretion MRSA (PCR) - Final Meth. resistant Staph. aureus 08/24/24 03:14 Mucosa - Nasopharyngeal Respiratory Panel (PCR) - Final 08/24/24 00:27 Urine, Clean Catch Legionella Antigen - Final 08/24/24 00:27 Urine, Clean Catch Streptococcus pneumoniae Antigen (M - Final 08/23/24 21:56 Mucosa - Nose SARS-CoV-2, Influenza & RSV (PCR) - Final Radiography Diagnostic Testing: Radiology Impression Chest X-Ray 08/28/24 05:35 IMPRESSION: Tiny residual right apical pneumothorax. No change bilateral infiltrates. Electronically Signed: Bhavya Carbone MD at 7:17 EST , Physical Exam Const alert and no apparent distress General Appearance: cooperative HEENT normocephalic, head/scalp atraumatic and moist oral mucous membranes Eyes EOMs intact bilaterally and conjunctivae normal Neck supple General: trachea midline Chest inspection of chest normal Resp normal respiratory effort Auscultation: Negative for rales, rhonchi or wheezes Cardio regular rate and regular rhythm GI normal to inspection, nondistended, normoactive bowel sounds Extremity no clubbing, cyanosis or edema Skin no rashes or lesions noted Neuro CN's II-XII intact bilaterally, moves all extremities and no focal motor deficits Psych cooperative and affect normal Charges/Coding Visit Charges Inpatient E&M: 65605 Subs Hosp L2
[2024-08-28 12:35] LABS: Vancomycin, Trough Level 19.2 ug/mL (5.0-15.0)
[2024-08-28] MEDS: predniSONE 20 MG Tablet 40 MG PO (12:53)
--- NOTE | 2024-08-28 12:53 | PHA.PHARE_ITS ---
Consult Antibiotic Management Pharmacy has been consulted to manage selected antibiotic: Vancomycin Type of Intervention Type of Consult: Follow-up Suspected Infection Suspected Infection: Sepsis and Pneumonia Prior Doses of Antibiotics Prior Doses of Antibiotics Received/Current Regimen: Vancomycin 1000 mg Q8H last dose given 08/28 @ 0750 Labs Labs: Sodium 136 mmol/L (136-145) 08/28/24 05:24 Potassium 4.3 mmol/L (3.5-5.1) 08/28/24 05:24 Chloride 105 mmol/L (98-107) 08/28/24 05:24 Carbon Dioxide 27.0 mmol/L (21.0-32.0) 08/28/24 05:24 Anion Gap 4 (5-15) L 08/28/24 05:24 BUN 24 mg/dL (7-18) H 08/28/24 05:24 Creatinine 1.06 mg/dL (0.70-1.30) 08/28/24 05:24 Est GFR (MDRD) Af Amer 94 mL/min (>60) 08/28/24 05:24 Est GFR (MDRD) Non-Af 78 mL/min (>60) 08/28/24 05:24 BUN/Creatinine Ratio 22.6 RATIO (10-20) H 08/28/24 05:24 Glucose 142 mg/dL (74-106) H 08/28/24 05:24 Vancomycin Trough 19.2 ug/mL (5.0-15.0) H 08/28/24 11:46 Random Vancomycin 14.5 ug/mL (0.0-15.0) 08/27/24 07:52 Microbiology Microbiology: Microbiology 08/27/24 11:44 Bronchial Lavage - Left Lower Lobe Respiratory Culture - Preliminary Appears to be normal respiratory deniz. Further studies to follow. 08/24/24 15:10 Sputum, Expectorated/Coughed Gram Stain - Final 08/24/24 15:10 Sputum, Expectorated/Coughed Respiratory Culture - Final Mixed normal respiratory deniz. No Streptococcus pneumoniae, beta-hemolytic Streptococcus or Staphylococcus aureus isolated. 08/23/24 21:55 Blood Culture (Wb) - Anticubital Left Blood Culture - Preliminary No growth in 48 hours. 08/25/24 08:30 Nasal Secretion MRSA (PCR) - Final Meth. resistant Staph. aureus 08/24/24 03:14 Mucosa - Nasopharyngeal Respiratory Panel (PCR) - Final 08/24/24 00:27 Urine, Clean Catch Legionella Antigen - Final 08/24/24 00:27 Urine, Clean Catch Streptococcus pneumoniae Antigen (M - Suri l 08/23/24 21:56 Mucosa - Nose SARS-CoV-2, Influenza & RSV (PCR) - Final Dosing Weight Weight used for dosin kg Estimated Creatinine Clearance Estimated Creatinine Clearance: ~ 97 Goal Trough Goal Trough: 15-20 mcg/mL Pharmacy Plan for Drug Dosing Pharmacy Plan for Drug Dosing: Vancomycin trough = 19.2, continue current dosing, trough in 2 days. Pharmacy Service will continue to monitor and adjust dosing as required. Follow-Up Labs Follow-Up Labs: Trough: Vancomycin Date/Time Labs Ordered Labs to be done on [date and time ordered]: 08/30/24 @ 1200
--- NOTE | 2024-08-28 13:37 | PN.ID_ITS ---
Physical Exam Narrative Feeling a little better, no fever, still some dyspnea. Const alert and no apparent distress General Appearance: cooperative Resp normal air movement and clear to auscultation bilaterally Cardio regular rate and regular rhythm GI soft to palpation, non-tender and non-distended Skin no rashes or lesions noted ID ID: Route of nutrition/ use of supplements: [] Nutritional Intake: [] IV Site: [] Barragan Catheter: [] Assessment & Plan Assessment/Plan (1) Pneumothorax on right: (2) Pneumonia: QUALIFIERS: Pneumonia type: due to unspecified organism Laterality: bilateral Lung location: unspecified part of lung Qualified C ode(s): J18.9 - Pneumonia, unspecified organism PLAN: Ngtd on sputum cx, sputum AFB. Seen by pulm, pneumothorax seems to be improving. CD4 700 and VL undetectable 06/2024 and med compliant, so should not be at risk for PJP causing a pneumo. Resp viral panel neg. UAgs neg. Mild ALT/AST rise seen on admit. On vanc/zosyn. Biktarvy not available, using raltegravir/truvada while inpatient. Pending mycoplasma, added azithro for atypical coverage, and 08/27 had bronch. Will narrow to ceftriaxone/azithro. Ok to do short course steroids. Plan for discharge if cont to improve would be 3 more days cefdinir 300mg bid and azithro 500mg daily. Will follow (3) HIV disease:
--- NOTE | 2024-08-28 14:06 | CASEMGMT ---
RN CM updated that patient may discharge over the weekend and may need oxygen. Patient had indicated on initial assessment that he preferred [facility] for DME, [facility] does not setup new patient oxygen over the weekend. RN DIPTI updated patient regarding need for potential oxygen and [facility] not able to setup over the weekend. RN DIPTI reviewed DME agencies with patient and would prefer [facility] if he will need oxygen. RN CM inquired if patient had any other needs at discharge. Patient denied further needs or help at discharge. Patient had no further questions or concerns. Green sheet placed on chart for home oxygen.
[2024-08-28] MEDS: Ceftriaxone 2 GM in 0.9% Normal Saline (50mL MB+) 50 ML IV (14:43)
[2024-08-28 15:09] LABS: Mycoplasma Pneum AB IgG 437 U/mL (0-99); Mycoplasma pneum. AB IgM < 770 U/mL (0-769)
[2024-08-28] MEDS: EMTRICITABINE/TENOFOVIR 1 TABLET TABLET PO (21:20)
[2024-08-29 03:40] VITALS: BP 128/84; PULSE 98; RESP 18; TEMP 36.7; O2SAT 95
--- NOTE | 2024-08-29 05:06 | RAD_ITS ---
EXAM: XR CHEST, 1 VIEW CLINICAL INDICATION: PTX follow up TECHNIQUE: Frontal view of the chest. COMPARISON: 08/28/2024 at 5:35 AM. FINDINGS: LUNGS AND PLEURAL SPACES: Persistent bilateral patchy opacities in the lungs similar to the prior exam. No effusion. No significant right apical pneumothorax. HEART: Unremarkable. Cardiac silhouette not enlarged. MEDIASTINUM: Central airways and mediastinal contour are unremarkable. BONES/JOINTS: Unremarkable. No acute fracture. SOFT TISSUES: Unremarkable. RAD/Chest 1 View (Portable) IMPRESSION: 1. No significant right apical pneumothorax. 2. Persistent bilateral patchy opacities in the lungs similar to the prior exam. Electronically Signed: Mitch Light MD at 7:30 EST ,
[2024-08-29 06:32] LABS: Absolute Lymphocyte Count 2.55 X10^3/uL (0.83-4.51); Absolute Neutrophil Count 9.9 X10^3/uL (2.0-7.7); Basophil# 0.08 X10^3/uL; Basophil% 0.6 % (0-1); Eosinophil# 0.11 X10^3/uL; Eosinophils% 0.8 % (0-5); Hematocrit 38.9 % (40-54); Hemoglobin 12.7 g/dL (13.0-16.5); Lymphocyte # 2.55 X10^3/ul (0.83-4.51); Lymphocyte % 18.9 % (19-41); Mean Corp Hgb Conc 32.6 g/dL (32-36); Mean Corpuscular Hgb 27.6 pg (27.0-32.0); Mean Corpuscular Volume 84.6 fL (80-94); Mean Platelet Vol. 9.1 fl (6.2-12.0); Monocyte# 0.71 X10^3/uL; Monocyte% 5.3 % (0-10); NRBC Flagged by Analyzer 0 % (0-5); Neutrophil # 9.87 X10^3/uL (2.7-7.7); Neutrophil % 73.2 % (47-70); POSITIVE COUNT YES; RBC Distribution Width CV 13.2 % (11.6-14.6); RBC Distribution Width SD 40.4 fl (35.1-43.9); White Blood Count 13.5 K/mm3 (4.4-11.0)
[2024-08-29 06:45] LABS: Platelet Count 834 K/mm3 (150-450)
[2024-08-29 06:52] VITALS: O2SAT 92
[2024-08-29 06:55] LABS: AST(SGOT) 23 U/L (15-37); Alanine Aminotransfer ALT/SGPT 77 U/L (16-61); Albumin, Serum 2.6 g/dL (3.2-5.0); Alkaline Phosphatase 91 U/L (45-117); Anion Gap 7 (5-15); BUN 24 mg/dL (7-18); Bilirubin, Direct 0.08 mg/dL (0.00-0.30); Chloride 106 mmol/L (98-107); Creatinine, Serum 0.89 mg/dL (0.70-1.30); EST Glomerular Filtration Rate 95 mL/min (>60); Est Glom Filt Rate - Afr Amer 115 mL/min (>60); Estimated Creatinine Clearance 115.02 ml/min; Globulin 4.9 g/dL (2.2-4.2); Glucose 167 mg/dL (74-106); Potassium 3.7 mmol/L (3.5-5.1); Protein, Total 7.5 g/dL (6.4-8.2); Sodium Level 140 mmol/L (136-145)
[2024-08-29] MEDS: Acyclovir 200 MG Capsule 400 MG PO ×2 (08:11→21:23)
[2024-08-29] MEDS: Zinc Sulfate 50 mg zinc (220 mg) ORAL capsule PO (08:12)
[2024-08-29] MEDS: Pantoprazole Sodium 40 MG Tablet PO (08:12)
[2024-08-29] MEDS: Cholecalciferol (Vit D3) 125 MCG CAPSULE (5,000 UNITS) PO (08:12)
[2024-08-29] MEDS: Ascorbic Acid 500 MG Tablet 1000 MG PO ×2 (08:12→17:30)
[2024-08-29] MEDS: RALTEGRAVIR POTASSIUM 400 MG TABLET PO ×2 (08:13→21:23)
[2024-08-29] MEDS: Lactobacillis Acidophilus 1 CAP PO ×4 (08:13→21:23)
[2024-08-29] MEDS: Azithromycin 250 MG Tablet 500 MG PO (08:13)
[2024-08-29] MEDS: predniSONE 20 MG Tablet 40 MG PO (08:14)
[2024-08-29] MEDS: Furosemide 40 MG/4 ML Vial IV ×2 (08:15→17:32)
[2024-08-29] MEDS: 0.9% Saline Lock 10 ML Syringe IV ×3 (08:15→21:23)
[2024-08-29 08:35] VITALS: BP 123/82; PULSE 81; RESP 18; TEMP 36.5; O2SAT 93
--- NOTE | 2024-08-29 08:57 | ECHOLC_ITS ---
Reason For Study: Dyspnea/SOB Procedure This was a limited 2D transthoracic echocardiogram. Contrast injection was performed. Exam performed portable in patient room. Left Ventricle Normal LV size. The estimated ejection fraction is 60 %. Unable to assess diastolic dysfunction. No regional wall motion abnormalities noted. Right Ventricle Normal RV size. Normal systolic function. Atria The left and right atria are normal. No doppler evidence for ASD. Mitral Valve There is no mitral valve stenosis. No mitral valve insufficiency. Tricuspid Valve There is no tricuspid stenosis. Unable to estimate RV systolic pressure due to inadequate jet, pulmonary artery pressure probably normal. Aortic Valve Trisinus/trileaflet aortic valve. There is no aortic stenosis. No aortic valve insufficiency. Pulmonic Valve There is no pulmonic valvular stenosis. No pulmonic valve insufficiency. Great Vessels Normal aortic root. Pericardium/Pleural No pericardial effusion. Medication Diluted definity 2.5ml given slow IV push to enhance endocardial definition. MMode/2D Measurements & Calculations LVIDd: 4.2 cm IVSd: 1.1 cm LA dimension: 3.2 cm LVIDs: 3.3 cm LVPWd: 1.00 cm RVDd: 3.9 cm FS: 21.9 % LAV(MOD-sp4): 25.7 ml LA A4 area: 13.0 cm2 RA A4 area: 13.7 cm2 ECHO/Echo Limited w/Contrast Interpretation Summary The estimated ejection fraction is 60 %. Unable to assess diastolic dysfunction. Ordering Physician: Mark Tucker Referring Physician: Alec Jessica Performed By: Brodwolf, Macario, RCS
--- NOTE | 2024-08-29 09:00 | PCM.PN.HOSP ---
Subjective Subjective No issues overnight, he still gets significant short of breath with moderate movement. Objective Data Objective Data Vital Signs: Vital Signs Temp Pulse Resp BP Pulse Ox O2 Del Method O2 Flow Rate 97.7 F L 81 18 123/82 H 93 Nasal Cannula 3 08/29/24 08:35 08/29/24 08:35 08/29/24 08:35 08/29/24 08:35 08/29/24 08:35 08/29/24 08:35 08/29/24 08:35 Oxygen Flow Rate (L/min) [ 8 AMBULATING with Oxygen #4] Oxygen Flow Rate (L/min) [ 6 AMBULATING with Oxygen #3] Oxygen Flow Rate (L/min) [ 6 AMBULATING with Oxygen #2] Oxygen Flow Rate (L/min) [ 4 AMBULATING with Oxygen #1] Oxygen Flow Rate (L/min) [At 4 REST with Oxygen] Oxygen Flow Rate (L/min) 3 Oxygen Delivery Method Nasal Cannula Weight: 210 lb 5.136 oz Body Mass Index (BMI) 28.5 Intake & Output: Intake and Output for Last 24 Hours 08/28/24 08/29/24 08/30/24 03:59 03:59 03:59 Intake Total 1350 / 1350 2130 / 2130 225 / 225 Output Total 2775 / 2775 3350 / 3350 300 / 300 Balance -1425 / -1425 -1220 / -1220 -75 / -75 Lab / Micro Data 08/29/24 04:15 08/29/24 04:15 Labs: Laboratory Results - last 24 hr 08/27/24 07:52: Diff Path Review Reviewed, Mycoplasma pneumon IgG 437 H, Mycoplasma pneumon IgM < 770 08/27/24 11:44: Fl Pathologist Comment Reviewed, Miscellaneous Cytology SEE PATHOLOGY REPORT 08/28/24 05:24: Diff Path Review February08/28/24 11:46: Vancomycin Trough 19.2 H 08/29/24 04:15: WBC 13.5 H, RBC 4.60, Hgb 12.7 L, Hct 38.9 L, MCV 84.6, MCH 27.6, MCHC 32.6, RDW Std Deviation 40.4, RDW Coeff of Romel 13.2, Plt Count 834 H*, MPV 9.1, Immature Gran % (Auto) 1.200 H, Neut % (Auto) 73.2 H, Lymph % (Auto) 18.9 L, [place] % (Auto) 5.3, Eos % (Auto) 0.8, Baso % (Auto) 0.6, Absolute Neuts (auto) 9.9 H, Absolute Lymphs (auto) 2.55, Nucleated RBC % 0, Differential Comment , Diff Path Review May foll, Sodium 140, Potassium 3.7, Chloride 106, Carbon Dioxide 27.0, Anion Gap 7, BUN 24 H, Creatinine 0.89, Estim Creat Clear Calc 115.02, Est GFR (MDRD) Af Amer 115, Est GFR (MDRD) Non-Af 95, BUN/Creatinine Ratio 27.0 H, Glucose 167 H, Calcium 9.0, Total Bilirubin 0.30, Direct Bilirubin 0.08, AST 23, ALT 77 H, Alkaline Phosphatase 91, Total Protein 7.5, Albumin 2.6 L, Globulin 4.9 H Micro: Microbiology 08/27/24 11:44 Bronchial Lavage - Left Lower Lobe Gram Stain - Final 08/27/24 11:44 Bronchial Lavage - Left Lower Lobe Respiratory Culture - Preliminary 08/23/24 21:55 Blood Culture (Wb) - Anticubital Left Blood Culture - Final No growth in 5 days. 08/24/24 15:10 Sputum, Expectorated/Coughed Gram Stain - Final 08/24/24 15:10 Sputum, Expectorated/Coughed Respiratory Culture - Final Mixed normal respiratory deniz. No Streptococcus pneumoniae, beta-hemolytic Streptococcus or Staphylococcus aureus isolated. 08/25/24 08:30 Nasal Secretion MRSA (PCR) - Final Meth. resistant Staph. aureus 08/24/24 03:14 Mucosa - Nasopharyngeal Respiratory Panel (PCR) - Final 08/24/24 00:27 Urine, Clean Catch Legionella Antigen - Final 08/24/24 00:27 Urine, Clean Catch Streptococcus pneumoniae Antigen (M - Final 08/23/24 21:56 Mucosa - Nose SARS-CoV-2, Influenza & RSV (PCR) - Final Radiography Diagnostic Testing: Radiology Impression Chest X-Ray 08/29/24 05:06 IMPRESSION: 1. No significant right apical pneumothorax. 2. Persistent bilateral patchy opacities in the lungs similar to the prior exam. Electronically Signed: Mitch Light MD at 7:30 EST , Physical Exam Narrative General: Alert, Oriented x3, Cooperative, No apparent distress HEENT: Atraumatic, PERRLA, EOMI, Normocephalic Oral: Moist Mucosa Neck: Supple, No JVD Lungs: Diminished, Normal air movement, No rhonchi, No wheeze, No rales Cardiovascular: Regular rate, Regular Rhythm, Normal S1, Normal S2, No murmurs Abdomen: Soft, Non Tender, Non-Distended, No Hepato-splenomegaly Extremities: No edema, Capillary Refill Less than 3 Seconds Skin: No rashes, No breakdown Musculoskeletal: No Tenderness to Palpation of Joints or Extremities Neurological: No focal neurological deficits, Motor Exam 5/5 strength throughout, Sensory exam intact to light touch and pain Psych/Mental Status: Normal Affect, Appropriate Assessment & Plan Assessment/Plan (1) Pneumonia: QUALIFIERS: Pneumonia type: due to unspecified organism Laterality: bilateral Lung location: unspecified part of lung Qualified Code(s): J18.9 - Pneumonia, unspecified organism (2) Pneumothorax on right: (3) Respiratory insufficiency: (4) Reactive thrombocytosis: PLAN: Plan 1. Bilateral pneumonia failing outpatient treatment with 2.1 cm right basilar pneumothorax with respiratory insufficiency sepsis rule out/HIV ? Appreciate pulmonology and ID assistance ?Infectious disease transitioned him to Rocephin and azithromycin, he did have a bronchial lavage 08/27/2024, that culture data is pending ? Legionella and strep antigen negative as his viral panel ? Blood cultures are negative ? Continue with his HIV medications ?Will continue with p.o. steroids ? Reactive thrombocytosis ? Continue with herpes prophylaxis with acyclovir ?Will likely transition his Lasix to twice daily dosing ? Will obtain a D-dimer as he has been refusing Lovenox, if normal can forego a CTA of the chest ? Will obtain a limited echo to look at EF and any type of low pulmonary hypertension DVT: Lovenox Charges/Coding Visit Charges Inpatient E&M: 92413 Subs Hosp L2
[2024-08-29 10:05] LABS: D-Dimer Quantitative (DVT/PE) 0.49 FEU/ug/m (0.27-0.49)
[2024-08-29] MEDS: Ceftriaxone 2 GM in 0.9% Normal Saline (50mL MB+) 50 ML IV (10:49)
[2024-08-29 15:47] VITALS: BP 106/75; PULSE 99; RESP 18; TEMP 36.9; O2SAT 97
[2024-08-29 18:40] VITALS: O2SAT 90; O2SAT 95
[2024-08-29 21:15] VITALS: BP 130/83; PULSE 84; RESP 18; TEMP 36.7; O2SAT 94
[2024-08-29] MEDS: EMTRICITABINE/TENOFOVIR 1 TABLET TABLET PO (21:23)
[2024-08-30 03:30] VITALS: BP 131/88; PULSE 81; RESP 18; TEMP 36.7; O2SAT 96
[2024-08-30 06:08] LABS: Anion Gap 7 (5-15); BUN 26 mg/dL (7-18); BUN/Creat Ratio 25.2 RATIO (10-20); Calcium,Total 8.9 mg/dL (8.5-10.1); Chloride 104 mmol/L (98-107); Creatinine, Serum 1.03 mg/dL (0.70-1.30); EST Glomerular Filtration Rate 80 mL/min (>60); Est Glom Filt Rate - Afr Amer 97 mL/min (>60); Estimated Creatinine Clearance 99.39 ml/min; Glucose 129 mg/dL (74-106); Potassium 3.8 mmol/L (3.5-5.1); Sodium Level 138 mmol/L (136-145)
[2024-08-30 07:05] VITALS: O2SAT 95
[2024-08-30 08:19] VITALS: BP 129/80; PULSE 76; RESP 17; TEMP 36.6; O2SAT 93
[2024-08-30] MEDS: Acyclovir 200 MG Capsule 400 MG PO (08:28)
[2024-08-30] MEDS: Pantoprazole Sodium 40 MG Tablet PO (08:28)
[2024-08-30] MEDS: Cholecalciferol (Vit D3) 125 MCG CAPSULE (5,000 UNITS) PO (08:28)
[2024-08-30] MEDS: Azithromycin 250 MG Tablet 500 MG PO (08:28)
[2024-08-30] MEDS: Ascorbic Acid 500 MG Tablet 1000 MG PO (08:28)
[2024-08-30] MEDS: Lactobacillis Acidophilus 1 CAP PO (08:29)
[2024-08-30] MEDS: RALTEGRAVIR POTASSIUM 400 MG TABLET PO (08:29)
[2024-08-30] MEDS: predniSONE 20 MG Tablet 40 MG PO (08:29)
[2024-08-30] MEDS: Zinc Sulfate 50 mg zinc (220 mg) ORAL capsule PO (08:30)
--- NOTE | 2024-08-30 10:08 | PCM.DC ---
Discharge Instructions Diet Discharge Diet: No restrictions Activity Discharge Activity: Return to Normal Activity Dressing / Incision Call your doctor if you observe: Fever of 101 or Higher, Shortness of breath, Dizziness, Fainting spells, Swelling in the ankles, Chest pain and Increased palpitations (irregular heartbeat) Follow Up Care Test Results: Test results from this visit will be discussed in further detail at your follow-up appointment, if applicable. Discharge Plan Admission Admit Date/Time: 08/24/24 00:08 Attending Provider: Mark Tucker Primary Care Provider: Norah Dent Consulting Providers: Joseph Boles; Danie Jacobo; Odilon Crowell; Dheeraj Garcia; Kingsley Johansen; Sascha Light; Chandler Barrios; Cisco Robertson; Ivette Haque; Christ Swift; Cleveland Rosas; Snehal Solano; Sandi Gonzalez; Ronnie De Jesus; Misael Yu; Tyler Stout; Konrad Aguirre; Anum Dominguez; Elan Duong; Sreekanth Philippe; Alvin Geronimo; Sascha Rodriguez Discharge Orders/Prescriptions Prescriptions: New azithromycin 250 mg Tablet 500 mg PO Q24 3 Days Qty: 6 0RF prednisone 20 mg Tablet 40 mg PO BREAKFAST 7 Days Qty: 14 0RF cefdinir 300 mg capsule 300 mg PO BID 3 Days Qty: 6 0RF Rx Instructions: Start 08/31 furosemide [Lasix] 40 mg tablet 40 mg PO DAILY 7 Days Qty: 7 0RF Continued acyclovir 400 MG tablet 400 mg PO BID [id number] ala 50-200-25 mg tablet 1 tab PO QHS Discontinued amoxicillin 500 mg capsule 1,000 mg PO TID 10 Days Qty: 60 0RF Patient Comments: finishing today 08/24/2024 Referrals / Follow Up: Norah Dent MD [Primary Care Provider] - Within 1 Week Disposition Disposition (needs filled in before D/C Order can be placed): Home, Self Care
[2024-08-30] MEDS: 0.9% Saline Lock 10 ML Syringe IV (11:02)
[2024-08-30] MEDS: Ceftriaxone 2 GM in 0.9% Normal Saline (50mL MB+) 50 ML IV (11:02)
[2024-08-30] MEDS: Furosemide 40 MG/4 ML Vial IV (11:03)
[2024-08-30 12:15] VITALS: O2SAT 86; O2SAT 88; O2SAT 90; O2SAT 92
--- NOTE | 2024-08-30 12:57 | NURSING ---
[facility] notified of need for home oxygen set up and information faxed.
[2024-08-30 13:34] VITALS: BP 112/79; PULSE 89; RESP 18; TEMP 37; O2SAT 94
--- NOTE | 2024-08-30 14:42 | PCM.DC.SUM ---
Providers Date of Admission: 08/24/24 Primary Care Physician: Dr. Norah Dent MD Consultations 08/24/24 01:06 Consult: Infectious Disease Routine Consulting Provider: Joseph Boles Reason for Consult: Bilateral PNA that failed outpatient Tx + Right PTX in HIV patient. EMERGENT Consult: No Notified: Yes Date Notified: 08/24/24 Time Notified: 06:50 Method of Notification: Text Consult: Html Web Developer / Pulmonary Medicine Routine Consulting Provider: Intensivists/Pulmonary Med Reason for Consult: Bilateral PNA that failed outpatient Tx with Right PTX. EMERGENT Consult: No Notified: Yes Date Notified: 08/24/24 Time Notified: 06:58 Method of Notification: Text Reason For Visit: SEPSIS, BILATERAL PNEUMONIA, RIGHT BASAL PTX AND Diagnosis Discharge Diagnosis (1) Pneumonia: Status: Acute Code(s): J18.9 - Pneumonia, unspecified organism Qualifiers: Pneumonia type: due to unspecified organism Laterality: bilateral Lung location: unspecified part of lung Qualified Code(s): J18.9 - Pneumonia, unspecified organism (2) Pneumothorax on right: Status: Acute Code(s): J93.9 - Pneumothorax, unspecified (3) Respiratory insufficiency: Status: Acute Code(s): R06.89 - Other abnormalities of breathing (4) Reactive thrombocytosis: Status: Acute Code(s): D75.838 - Other thrombocytosis Medications at Discharge Home Medications acyclovir 400 mg tablet 400 mg PO BID herpes 07/28/20 bictegravir 50 mg-emtricitabine 200 mg-tenofovir alafenam 25 mg tablet 1 tab PO QHS HIV 10/11/20 azithromycin 250 mg tablet 500 mg (2 x 250 mg) PO Q24 3 days #6 tabs 08/30/24 cefdinir 300 mg capsule 300 mg PO BID 3 days #6 caps 08/30/24 furosemide 40 mg tablet (Lasix) 40 mg PO DAILY 7 days #7 tabs 08/30/24 prednisone 20 mg tablet 40 mg (2 x 20 mg) PO BREAKFAST 7 days #14 tabs 08/30/24 Hospital Course Operations None Procedures 2-D Echocardiogram and Bronchoscopy Summary of Care Provided Minutes Spent on Discharge: 32 Hospital Course: Per HPI: SOL ESQUIVEL, is a 54 M with a past medical history of hyperlipidemia, overweight; with BMI of 28.6 this admission, history of insulin resistance, HIV infection; HAART with most recent viral load ~20 followed by [facility] of infectious disease, history of HSV; on Acyclovir, history of syphilis; s/p treatment, history of cecal polyp; s/p snare upon colonoscopy (2021), history of appendectomy, cannabis vapor product user and history of recently ER evaluation here on August 13, 2024 for a 3 day history of a lower respiratory infection with chills, night sweats and blood tinged sputum with CXR positive for diffuse interstitial infiltrate consistent with Pneumonia and he was then started on Amoxicillin 1g PO TID for 10 days who now re-presents to [facility] ER complaining of fever up to 102 degrees Fahrenheit and worsening SOB. He also admits to an occipital headache with nonproductive cough and chills, sweats and aching chest pain with increasing BELLAMY. In the ER he was noted to have a low-grade fever of 99.9 degrees Fahrenheit with Sinus Tachycardia of 116 bpm present on admission with a CXR positive for an ~2.1 cm Right Basilar Pneumothorax along with persistent bibasilar infiltrates consistent with Pneumonia complicated by Left-shift of 1.7% with 70.5% PMNs concerning for Sepsis with clinical evidence of Acute Respiratory Insufficiency in addition to Severe Thrombocytosis of 984K present on admission (298K on last check 06/2024) as suspected to be due to acute phase reactant compounded by laboratory evidence of Dehydration with BUN/creatinine ratio of 26.7 present on admission with Hypoalbuminemia of 2.2 g/dL present on admission concerning for Protein-Calorie Malnutrition and he was then admitted to the ICU for ongoing care for a stay that is expected to extend beyond 2 midnights. Hospital Course: 1. Bilateral pneumonia failing outpatient treatment 2.1 cm basilar pneumothorax with respiratory insufficiency/HIV?54-year-old male presented to the hospital without sepsis and bilateral pulmonary infiltrates. He was started on broad-spectrum antibiotics given his history of HIV however his HIV is being well treated and his CD4 counts are normal. On admission Legionella and strep antigens were negative as well as viral panel. Blood cultures also remain negative. He was slow to improve and during his stay he had an oxygen requirement around 8 L with ambulation she was started on Lasix as well as steroids and had gradual improvement. He did also have a bronchoscopy with lavage those cultures are still pending however infectious disease narrowed his antibiotics down to Rocephin and azithromycin. Today on the day of discharge after several days of Lasix and steroids he was able to ambulate on 3 L nasal cannula so I discussed with him the plan for discharge and he was understanding of the risk benefits going home and would like to go home today. Of note he did have an echo which was unremarkable and a D-dimer which was normal. Will continue cefdinir 300 mg p.o. twice daily for another 3 days, will continue azithromycin 500 mg p.o. daily for another 3 days. Will also provide prednisone 40 mg daily for a week and Lasix 40 mg p.o. daily for a week. I recommend he follow-up with his PCP in 3 to 5 days to monitor as an outpatient. Of note also appears to have reactive thrombocytosis which would also require outpatient follow-up likely inflammatory in nature. Physical Exam Narrative General: Alert, Oriented x3, Cooperative, No apparent distress HEENT: Atraumatic, PERRLA, EOMI, Normocephalic Oral: Moist Mucosa Neck: Supple, No JVD Lungs: Diminished, Normal air movement, No rhonchi, No wheeze, No rales Cardiovascular: Regular rate, Regular Rhythm, Normal S1, Normal S2, No murmurs Abdomen: Soft, Non Tender, Non-Distended, No Hepato-splenomegaly Extremities: No edema, Capillary Refill Less than 3 Seconds Skin: No rashes, No breakdown Musculoskeletal: No Tenderness to Palpation of Joints or Extremities Neurological: No focal neurological deficits, Motor Exam 5/5 strength throughout, Sensory exam intact to light touch and pain Psych/Mental Status: Normal Affect, Appropriate Weight / BMI Weight Weight: 210 lb 5.136 oz Body Mass Index (BMI) 28.5 ABG / Lab / Microbiology Data 08/29/24 04:15 08/30/24 04:05 Laboratory: Laboratory Results - last 24 hr 08/30/24 04:05: Sodium 138, Potassium 3.8, Chloride 104, Carbon Dioxide 26.0, Anion Gap 7, BUN 26 H, Creatinine 1.03, Estim Creat Clear Calc 99.39, Est GFR (MDRD) Af Amer 97, Est GFR (MDRD) Non-Af 80, BUN/Creatinine Ratio 25.2 H, Glucose 129 H, Calcium 8.9 Microbiology: Microbiology 08/27/24 11:44 Bronchial Lavage - Left Lower Lobe Gram Stain - Final 08/27/24 11:44 Bronchial Lavage - Left Lower Lobe Respiratory Culture - Preliminary Appears to be normal respiratory deniz. Further studies to follow. 08/23/24 21:55 Blood Culture (Wb) - Anticubital Left Blood Culture - Final No growth in 5 days. 08/24/24 15:10 Sputum, Expectorated/Coughed Gram Stain - Final 08/24/24 15:10 Sputum, Expectorated/Coughed Respiratory Culture - Final Mixed normal respiratory deniz. No Streptococcus pneumoniae, beta-hemolytic Streptococcus or Staphylococcus aureus isolated. 08/25/24 08:30 Nasal Secretion MRSA (PCR) - Final Meth. resistant Staph. aureus 08/24/24 03:14 Mucosa - Nasopharyngeal Respiratory Panel (PCR) - Final 08/24/24 00:27 Urine, Clean Catch Legionella Antigen - Final 08/24/24 00:27 Urine, Clean Catch Streptococcus pneumoniae Antigen (M - Final 08/23/24 21:56 Mucosa - Nose SARS-CoV-2, Influenza & RSV (PCR) - Final Radiography Diagnostic Testing: Radiology Impression Echocardiogram 08/29/24 08:57 Interpretation Summary The estimated ejection fraction is 60 %. Unable to assess diastolic dysfunction. Ordering Physician: Mark Tucker Referring Physician: Alec Jessica Performed By: Macario Walters RCS D/C Instructions Discharge Diet: No restrictions Call your doctor if you observe: Fever of 101 or Higher, Shortness of breath, Dizziness, Fainting spells, Swelling in the ankles, Chest pain and Increased palpitations (irregular heartbeat) Meaningful Use Info Meaningful Use Meaningful Use Diagnoses (Choose all that apply): None applicable Ischemic Stroke Statin Dosing Therapy Reference: STATIN DOSE THERAPY REFERENCE: * Patients > 75 years receive moderate or high dose statin therapy. * Patients 75 years or YOUNGER should receive HIGH intensity statin dose unless contraindicated. You will be required to document reason for non-treatment if statin daily dose does not meet guidelines. HIGH DOSE STATIN THERAPY DAILY Atorvastatin > than or = to 40 mg Rosuvastatin > than or = to 20 mg Amlodipine + Atorvastatin > than or = to 2.5/40 mg Ezetimibe + Simvastatin 10/80 mg Simvastatin 80mg Discharge Plan Admission Admit Date/Time: 08/24/24 00:08 Attending Provider: Mark Tucker Primary Care Provider: Norah Dent Consulting Providers: Joseph Boles; Danie Jacobo; Odilon Crowell; Dheeraj Garcia; Kingsley Johansen; Sascha Light; Chandler Barrios; Cisco Robertson; Ivette Haque; Christ Swift; Cleveland Rosas; Snehal Solano; Sandi Gonzalez; Ronnie De Jesus; Misael Yu; Tyler Stout; Konrad Aguirre; Anum Dominguez; Elan Duong; Sreekanth Philippe; Alvin Geronimo; Sascha Rodriguez Discharge Orders/Prescriptions Prescriptions: New azithromycin 250 mg Tablet 500 mg PO Q24 3 Days Qty: 6 0RF prednisone 20 mg Tablet 40 mg PO BREAKFAST 7 Days Qty: 14 0RF cefdinir 300 mg capsule 300 mg PO BID 3 Days Qty: 6 0RF Rx Instructions: Start 08/31 furosemide [Lasix] 40 mg tablet 40 mg PO DAILY 7 Days Qty: 7 0RF Continued acyclovir 400 MG tablet 400 mg PO BID ogrbtctpg-ispnqikn-yikvdsf ala 50-200-25 mg tablet 1 tab PO QHS Discontinued amoxicillin 500 mg capsule 1,000 mg PO TID 10 Days Qty: 60 0RF Patient Comments: finishing today 08/24/2024 Referrals / Follow Up: Norah Dent MD [Primary Care Provider] - Within 1 Week Disposition Disposition (needs filled in before D/C Order can be placed): Home, Self Care Charges/Coding Visit Charges Inpatient E&M: 61233 Disch Hosp >30min
[2024-08-31 14:05] LABS: Pathologist Review Reviewed
[2024-08-31 14:08] LABS: Pathologist Review Reviewed
== END 2024-08-30 15:14 | disposition home or self-care (01) | DRG 194 ==
LOC: ED 23:22 → PCU 08-24 05:00
PROVIDERS: Family Medicine; Internal Medicine Critical Care Medicine; Internal Medicine Infectious Disease; Admitting Provider Internal Medicine; Emergency Provider Emergency Medicine; PCP Internal Medicine; Visit Provider Family Medicine
PROC: 0BJ08ZZ Inspection of Tracheobronchial Tree, Via Natural or Artificial Opening Endoscopic (ICD-10-PCS; CPT 31622; principal; 2024-08-27 10:45)
DX: J18.9 Pneumonia, unspecified organism (principal); E46 Unspecified protein-calorie malnutrition; J93.83 Other pneumothorax; R04.2 Hemoptysis; E88.819 Insulin resistance, unspecified; E88.09 Other disorders of plasma-protein metabolism, not elsewhere classified; E86.0 Dehydration; F12.10 Cannabis abuse, uncomplicated; D75.838 Other thrombocytosis; E78.5 Hyperlipidemia, unspecified; I45.10 Unspecified right bundle-branch block; U07.0 Vaping-related disorder; E87.8 Other disorders of electrolyte and fluid balance, not elsewhere classified; E66.3 Overweight; R09.02 Hypoxemia; Z86.0100 Personal history of colon polyps, unspecified; Z68.28 Body mass index [BMI] 28.0-28.9, adult; Z79.899 Other long term (current) drug therapy; Z79.620 Long term (current) use of immunosuppressive biologic; Z86.19 Personal history of other infectious and parasitic diseases; Z98.890 Other specified postprocedural states; Z90.49 Acquired absence of other specified parts of digestive tract; R06.89 Other abnormalities of breathing; R51.9 Headache, unspecified; R50.9 Fever, unspecified; R00.0 Tachycardia, unspecified; R05.9 Cough, unspecified; R91.8 Other nonspecific abnormal finding of lung field; Z20.828 Contact with and (suspected) exposure to other viral communicable diseases
CPT/HCPCS: 36415; 70450; 71045; 71046; 71250; 80048; 80053; 80061; 80076; 80202; 83036; 83605; 84443; 84484; 85025; 85379; 85610; 85730; 86738; 87015; 87040; 87070; 87116; 87149; 87205; 87206; 87252; 87278; 87449; 87631; 87633; 87641; 88108; 88305; 88312; 88313; 89050; 93005; 93308; 94640; 94668; 97802; 99285; 99406; Q9957; A4216; C8924; J0696; J1938; J2405

== ENCOUNTER → 2024-09-16 | Outpatient (CLI) | payer OTHER, SELFPAY ==
--- NOTE | 2024-09-16 16:01 | RAD_ITS ---
EXAM: XR CHEST, 2 VIEWS CLINICAL INDICATION: Bilateral patchy pneumonia, see previous films/CT TECHNIQUE: Frontal and lateral views of the chest. COMPARISON: 08/29/2024 FINDINGS: LUNGS AND PLEURAL SPACES: There is persistent bibasilar opacities greater on the left than on the right which may represent scar or atelectasis. There has been no significant change from the reference exam. No pneumothorax. No effusion. HEART: Unremarkable. Cardiac silhouette not enlarged. MEDIASTINUM: Central airways and mediastinal contour are unremarkable. BONES/JOINTS: Unremarkable. No acute fracture. SOFT TISSUES: Unremarkable. RAD/Chest PA and Lateral IMPRESSION: Persistent bibasilar interstitial opacities which may represent scar or atelectasis. Electronically Signed: Leon Worthy MD at 17:06 EST ,
[2024-09-16 16:14] LABS: Absolute Lymphocyte Count 2.16 X10^3/uL (0.83-4.51); Absolute Neutrophil Count 4.2 X10^3/uL (2.0-7.7); Basophil# 0.05 X10^3/uL; Basophil% 0.7 % (0-1); Eosinophil# 0.17 X10^3/uL; Eosinophils% 2.5 % (0-5); Hematocrit 38.5 % (40-54); Hemoglobin 12.4 g/dL (13.0-16.5); Lymphocyte # 2.16 X10^3/ul (0.83-4.51); Lymphocyte % 31.3 % (19-41); Mean Corp Hgb Conc 32.2 g/dL (32-36); Mean Corpuscular Hgb 27.4 pg (27.0-32.0); Mean Corpuscular Volume 85.2 fL (80-94); Mean Platelet Vol. 8.9 fl (6.2-12.0); Monocyte# 0.31 X10^3/uL; Monocyte% 4.5 % (0-10); NRBC Flagged by Analyzer 0 % (0-5); Neutrophil # 4.19 X10^3/uL (2.7-7.7); Neutrophil % 60.7 % (47-70); Platelet Count 246 K/mm3 (150-450); RBC Distribution Width CV 14.8 % (11.6-14.6); RBC Distribution Width SD 45.8 fl (35.1-43.9); Red Blood Count 4.52 M/mm3 (4.6-6.2); White Blood Count 6.9 K/mm3 (4.4-11.0)
[2024-09-16 16:56] LABS: ALB/GLOB Ratio 0.8 RATIO (0.9-2.4); AST(SGOT) 12 U/L (15-37); Alanine Aminotransfer ALT/SGPT 20 U/L (16-61); Albumin, Serum 3.3 g/dL (3.2-5.0); Alkaline Phosphatase 70 U/L (45-117); Anion Gap 6 (5-15); BUN 19 mg/dL (7-18); BUN/Creat Ratio 17.8 RATIO (10-20); Calcium,Total 8.7 mg/dL (8.5-10.1); Chloride 109 mmol/L (98-107); Cholesterol 188 mg/dL (200); Creatinine, Serum 1.07 mg/dL (0.70-1.30); EST Glomerular Filtration Rate 77 mL/min (>60); Est Glom Filt Rate - Afr Amer 93 mL/min (>60); Globulin 3.9 g/dL (2.2-4.2); Glucose 146 mg/dL (74-106); High Density Lipoprotein 47 mg/dL; Potassium 4.2 mmol/L (3.5-5.1); Protein, Total 7.2 g/dL (6.4-8.2); Sodium Level 140 mmol/L (136-145); Triglycerides 146 mg/dL; Very Low Density Lipoprotein 29 mg/dL (5-40)
[2024-09-16 17:24] LABS: Vitamin D,25 Hydroxy 25.7 ng/mL
== END | disposition home or self-care (01) ==
LOC: LAB 15:35
PROVIDERS: PCP Internal Medicine; Referring Provider Internal Medicine; Visit Provider Internal Medicine
DX: J93.9 Pneumothorax, unspecified (principal); J18.9 Pneumonia, unspecified organism; E78.1 Pure hyperglyceridemia; E66.9 Obesity, unspecified; E88.819 Insulin resistance, unspecified; E55.9 Vitamin D deficiency, unspecified; Z13.220 Encounter for screening for lipoid disorders; R73.9 Hyperglycemia, unspecified
CPT/HCPCS: 36415; 71046; 80053; 80061; 82306; 83036; 84443; 85025